=== PATIENT | male | born 1960 | race Caucasian/White ===

== ENCOUNTER 2019-08-06 00:27 | Emergency (ER) | payer OTHER, SELFPAY ==
[2019-08-06 01:34] LABS: Albumin 3.2 g/dL (3.4-5.0); Bilirubin Direct 0.2 mg/dL (0-0.2); Bilirubin Total 0.3 mg/dL (0.2-1.0); Magnesium 1.6 mg/dL (1.8-2.4); Potassium 3.9 mmol/L (3.5-5.1); Protein, Total 7.6 g/dL (6.4-8.2); Troponin (Emerg Dept Use Only) 0.03 ng/mL (0.0-0.045)
[2019-08-06 01:39] LABS: Barbiturates NEGATIVE (NEGATIVE); Benzodiazepines NEGATIVE (NEGATIVE); Cocaine NEGATIVE (NEGATIVE); METHAMPHETAM NEGATIVE (NEGATIVE); Methadone NEGATIVE (NEGATIVE); Opiates NEGATIVE (NEGATIVE); Phencyclidine NEGATIVE (NEGATIVE); THC Cannibis NEGATIVE (NEGATIVE)
[2019-08-06] MEDS ORDERED: Magnesium Sulfate 2gm IVPB 2 G/50 ML BAG IV ONE (01:56)
[2019-08-06] MEDS ORDERED: NA CHLORIDE 0.9% 500 ML ONE (01:56)
[2019-08-06 02:02] LABS: Absolute Lymphocytes (CBC) 1.4 K/uL (0.7-4.9); Basophils % 1.3 % (0-1.3); Hematocrit 31.9 % (39.6-49.0); MPV 9.4 fL (7.6-11.3); RBC Red Blood Cell Count 3.79 M/uL (4.33-5.43)
[2019-08-06 02:03] LABS: Protime INR 1.15
[2019-08-06 03:35] LABS: Anisocytosis 2+; Blood Morphology Comment NOTED (NOT SEEN); Platelet Estimate ADEQ; Polychromasia 1+; Urine White Blood Cell Casts OK
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
--- NOTE | 2019-08-06 03:49 | EDPHYS ---
Physician Documentation [facility] Name: Satnam Khan Age: 58 yrs Sex: Male : 1960 Arrival Date: 08/06/2019 Time: 00:46 Bed 3 Private MD: ED Physician Nolan Kaiser HPI: 08/05 02:53 This 58 yrs old Male presents to ER via EMS with complaints of Abdominal Pain.jr8 02:53 The patient presents with abdominal pain in the upper abdomen. Onset: The jr8 symptoms/episode began/occurred gradually, 2 week(s) ago, and became worse and became persistent. The symptoms do not radiate. Associated signs and symptoms: none. The symptoms are described as stabbing. Modifying factors: The symptoms are alleviated by nothing, the symptoms are aggravated by nothing. Severity of pain: At its worst the pain was moderate in the emergency department the pain is unchanged. It is unknown whether or not the patient has had similar symptoms in the past. It is unknown whether or not the patient has recently seen a physician. Patient came to ED via EMS tonight. EMS stated that patient had several alcoholic beverages and was slurring speech. Stated that he was having abdominal pain. Denies any other symptoms at this time. Historical: - Allergies: 00:56 No Known Allergies; lp1 - Home Meds: 00:56 Unable to obtain [Active]; lp1 - PMHx: 00:56 CHF; Myocardial infarction; Hypertension; lp1 - PSHx: 00:56 Heart stents; lp1 - Immunization history:: Adult Immunizations unknown. - Social history:: Smoking status: unknown. ROS: 02:54 Eyes: Negative for injury, pain, redness, and discharge, ENT: Negative for injury, jr8 pain, and discharge, Neck: Negative for injury, pain, and swelling, Cardiovascular: Negative for chest pain, palpitations, and edema, Respiratory: Negative for shortness of breath, cough, wheezing, and pleuritic chest pain, Back: Negative for injury and pain, MS/Extremity: Negative for injury and deformity, Skin: Negative for injury, rash, and discoloration, Neuro: Negative for headache, weakness, numbness, tingling, and seizure. 02:54 Abdomen/GI: Positive for abdominal pain, Negative for nausea, vomiting, and diarrhea, constipation, abdominal cramps, abdominal distension. Exam: 02:54 Eyes: Pupils equal round and reactive to light, extra-ocular motions intact. Lids and jr8 lashes normal. Conjunctiva and sclera are non-icteric and not injected. Cornea within normal limits. Periorbital areas with no swelling, redness, or edema. ENT: Nares patent. No nasal discharge, no septal abnormalities noted. Tympanic membranes are normal and external auditory canals are clear. Oropharynx with no redness, swelling, or masses, exudates, or evidence of obstruction, uvula midline. Mucous membranes moist. Neck: Trachea midline, no thyromegaly or masses palpated, and no cervical lymphadenopathy. Supple, full range of motion without nuchal rigidity, or vertebral point tenderness. No Meningismus. Respiratory: Lungs have equal breath sounds bilaterally, clear to auscultation and percussion. No rales, rhonchi or wheezes noted. Patient tachypneic 02:54 Skin: Warm, dry with normal turgor. Normal color with no rashes, no lesions, and no evidence of cellulitis. MS/ Extremity: Pulses equal, no cyanosis. Neurovascular intact. Full, normal range of motion. 02:54 Constitutional: The patient appears alert, awake, agitated. 02:54 Cardiovascular: Rate: tachycardic, Pulses: Pulses are 2+ in right radial artery and left radial artery. Heart sounds: normal, normal S1and S2, no S3 or S4, no murmur, no rub, no gallop, Edema: is not appreciated, JVD: is not appreciated, ICD noted left anterior chest wall . 02:54 Abdomen/GI: Inspection: obese scar(s), are noted in the mid abdominal, ileostomy site noted right side of abdomen, Bowel sounds: active, all quadrants, Palpation: soft, in all quadrants, moderate abdominal tenderness, in the epigastric area, mass, is not appreciated, rebound tenderness, is not appreciated, voluntary guarding, is not appreciated, involuntary guarding, is not appreciated, no appreciated organomegaly. 02:54 Neuro: Orientation: to person, place \T\ time. Mentation: able to follow commands, slow to respond, Memory: immediate memory is intact, remote memory is intact. recent memory is intact, Cranial nerves: CN I not tested, CN II- XII are normal as tested, extraocular movements are intact, Facial palsy and sensory deficits are absent. Speech is slurred, Tongue strength is normal, Cerebellar function: normal finger to nose testing, Motor: moves all fours, Sensation: no obvious gross deficits, seizure activity, is not displayed by the patient, Abnormal movements: there are no abnormal movements. Vital Signs: 00:45 BP 140 / 111; Pulse 117; Resp 20; Temp 98(TE); Pulse Ox 100% on R/A; lp1 02:05 BP 129 / 83; Pulse 112; Resp 26; Pulse Ox 99% on R/A; rv 02:47 BP 129 / 83; Pulse 112; Resp 21; Pulse Ox 96% on R/A; rv 03:30 BP 121 / 89; Pulse 111; Resp 26; Pulse Ox 96% on R/A; rv 04:00 BP 127 / 79; Pulse 106; Resp 27; Pulse Ox 94% on R/A; rv 05:03 BP 132 / 85; Pulse 105; Resp 24; Pulse Ox 94% on R/A; rv 06:55 BP 134 / 92; Pulse 102; Resp 21; Temp 98.3; Pulse Ox 97% on R/A; rv MDM: 00:46 Patient medically screened. [facility] 03:42 Data reviewed: vital signs, nurses notes, lab test result(s), EKG, radiologic studies, jr8 plain films. Data interpreted: Pulse oximetry: on room air is 96 %. Interpretation: normal. Counseling: I had a detailed discussion with the patient and/or guardian regarding: the historical points, exam findings, and any diagnostic results supporting the discharge/admit diagnosis, lab results, radiology results, the need for outpatient follow up, a family practitioner, to return to the emergency department if symptoms worsen or persist or if there are any questions or concerns that arise at home. Special discussion: Based on the patient's Hx, exam, and Dx evaluation, there is no indication for emergent surgery or inpatient Tx. It is understood by the patient/guardian that if the Sx's persist or worsen they need to return immediately for re-evaluation. 03:46 ED course: No acute abdominal process identified. Patient inebriated. Will wait to [facility] sober up or has ride home before discharging . 08/05 00:47 Order name: Basic Metabolic Panel [facility] 08/05 00:47 Order name: CBC with Diff 08/05 00:47 Order name: LFT's; Complete Time: 01:42 08/05 00:47 Order name: Magnesium; Complete Time: :42 08/05 00:47 Order name: NT PRO-BNP; Complete Time: :42 08/05 00:47 Order name: PT-INR; Complete Time: 02:05 08/05 00:47 Order name: Troponin (emerg Dept Use Only); Complete Time: :42 08/05 00:47 Order name: XRAY Chest (1 view) 08/05 00:47 Order name: Lipase; Complete Time: :42 08/05 00:47 Order name: ETOH Level; Complete Time: 01:54 08/05 00:47 Order name: UDS; Complete Time: :42 08/05 00:47 Order name: Basic Metabolic Panel; Complete Time: 01:42 EDMS 08/05 00:47 Order name: CBC with Automated Diff; Complete Time: 03:38 EDMS 08/05 02:04 Order name: CBC Smear Scan; Complete Time: 03:38 EDMS 08/05 00:47 Order name: Cardiac monitoring; Complete Time: 01:04 08/05 00:47 Order name: EKG - Nurse/Tech; Complete Time: 01:04 08/05 00:47 Order name: IV Saline Lock; Complete Time: 01:04 08/05 00:47 Order name: Labs collected and sent; Complete Time: 01:04 08/05 00:47 Order name: O2 Per Protocol; Complete Time: 01:04 08/05 00:47 Order name: O2 Sat Monitoring; Complete Time: 01:05 08/05 01:54 Order name: CT Abd/Pelvis - IV Contrast Only Administered Medications: 02:04 Drug: Magnesium Sulfate 2 grams Route: IVPB; Infused Over: 2 hrs; Site: left rv antecubital; 03:33 Follow up: IV Status: Completed infusion; IV Intake: 50ml rv Disposition: 08/06 01:15 Co-signature as Attending Physician, Nolan Kaiser MD. [email or web address] Disposition: 08/06/19 03:48 Discharged to Home. Impression: Upper abdominal pain, unspecified, Alcohol abuse. - Condition is Stable. - Discharge Instructions: Abdominal Pain, Adult, Alcohol Intoxication. - Medication Reconciliation Form, Thank You Letter, Antibiotic Education, Prescription Opioid Use form. - Follow up: Private Physician; When: 2 - 3 days; Reason: Recheck today's complaints, Continuance of care, Re-evaluation by your physician. - Problem is new. - Symptoms have improved. Signatures: Dispatcher [employer] EDEduarda Jiménez RN RN sv Nelda Feldman RN RN lp1 Ascencion Mondragon PA PA jr8 Gerber Todd RN RN rv Nolan Kaiser MD MD [email or web address] Corrections: (The following items were deleted from the chart) 08/05 07:30 03:48 08/06/2019 03:48 Discharged to Home. Impression: Upper abdominal pain, sv unspecified; Alcohol abuse. Condition is Stable. Forms are Medication Reconciliation Form, Thank You Letter, Antibiotic Education, Prescription Opioid Use. Follow up: Private Physician; When: 2 - 3 days; Reason: Recheck today's complaints, Continuance of care, Re-evaluation by your physician. Problem is new. Symptoms have improved. jr8
--- NOTE | 2019-08-06 08:01 | RAD REPORT ---
EXAM DESCRIPTION: [place] Single View08/06/2019 1:11 am CLINICAL HISTORY: Chest pain COMPARISON: 2017 FINDINGS: The lungs appear clear of acute infiltrate. The heart is mildly enlarged. Pacemaker leads are in place. IMPRESSION: No acute abnormalities displayed
[2019-08-06 08:12] VITALS: BP 134/92; TEMP 98.3; O2SAT 97
--- NOTE | 2019-08-06 10:38 | RAD REPORT ---
EXAM DESCRIPTION: CT - Abdomen Pelvis W Contrast - 08/06/2019 6:12 am COMPARISON: None CLINICAL HISTORY: Abdominal pain TECHNIQUE: Multiple helical axial images were obtained through the abdomen and pelvis using intraven ous contrast. Coronal and sagittal reformatted images were obtained. All CT scans at this facility use dose modulation, iterative reconstruction, and/or weight-based dosi ng when appropriate to reduce radiation dose to as low as reasonably achievable. FINDINGS: Lung bases: Cardiac pacing lead noted. Liver: There is low attenuation suggestive of fatty changes. Gallbladder/biliary: Cholecystectomy changes are present. No significant biliary ductal dilatation. Pancreas: Unremarkable. No evidence of ductal enlargement. Spleen: Appears unremarkable. No splenomegaly. Adrenals: Unremarkable. Kidneys and ureters: No evidence of hydronephrosis. Normal enhancement. There is a 2 cm rounded hyp odense cyst in the midpole of the right kidney. Subcentimeter hypodensity in the right kidney present too small to characterize but likely representing a cyst. Bladder: Unremarkable. Pelvic organs: Unremarkable. Bowel: Right lower quadrant ileostomy is demonstrated. There is a moderate size parastomal hernia con taining nondilated small bowel and fat. No evidence of bowel obstruction. No bowel wall thickening. Vasculature: Mild aortoiliac atherosclerosis is present. Peritoneum: No free air. No significant free fluid. Lymph nodes: Unremarkable. Soft tissues: Unremarkable. Bones: A few old rib fractures are present bilaterally. There are changes of posterior fusion at L4-L 5 with mild anterior subluxation of L4 relative to L5. Multiple chronic appearing compression fractur es of the lumbar spine demonstrated. Lumbar spine degenerative changes noted. IMPRESSION: 1. No evidence for an acute process within the abdomen or pelvis. 2. Right lower quadrant ileostomy with moderate-sized parastomal hernia. Electronically signed by: Eulalio Schwarz MD 08/06/2019 3:20 AM CDT Due to temporary technical issues with the PACS/Fluency reporting system, reports are being signed by the in house radiologist without review as a courtesy to ensure prompt reporting. The interpreting r adiologist is fully responsible for the content of the report.
--- NOTE | 2019-08-07 07:19 | EKG ---
Test Date: 2019-08-06 Test Time: 00:41:34 Medical Supervisor: JUVE MEASUREMENT RESULTS: Intervals: Rate: 117 CT: 156 QRSD: 120 QT: 340 QTc: 474 [place]: P: 70 CT: 156 QRS: -29 T: 67 INTERPRETIVE STATEMENTS: Sinus tachycardia Nonspecific intraventricular conduction delay Nonspecific T wave abnormality Abnormal ECG No previous ECG available for comparison Electronically Signed On 08-07-19 07:16:03 CDT by Nanod Lozano
== END 2019-08-06 07:30 | disposition home or self-care (01) ==
LOC: ER 00:27
DX: F10.10 Alcohol abuse, uncomplicated (principal); I10 Essential (primary) hypertension; I50.9 Heart failure, unspecified; Z95.818 Presence of other cardiac implants and grafts
CPT/HCPCS: 36415; 71045; 74177; 80048; 80076; 80307; 80320; 83690; 83735; 83880; 84484; 85025; 85610; 93005; 96365; 99285; J3475; J7040; Q9967

== ENCOUNTER 2019-08-13 09:31 | Inpatient (IN) | payer OTHER ==
[2019-08-13] MEDS ORDERED: ASPIRIN 81 MG CHEWABLE TABLET ONE (10:42)
[2019-08-13 10:48] LABS: Absolute Lymphocytes (CBC) 1.1 K/uL (0.7-4.9); Basophils % 0.9 % (0-1.3); Hematocrit 32.1 % (39.6-49.0); Lymphocytes % 20.1 % (15.3-44.8); MPV 9.5 fL (7.6-11.3); RBC Red Blood Cell Count 3.93 M/uL (4.33-5.43)
[2019-08-13 10:53] LABS: Protime INR 1.1
[2019-08-13 10:54] LABS: Arterial Blood Carboxyhemoglob 1.9 % (0-1.5); Blood Gas Oxyhemoglobin 93.2 % (94-97); Blood O2 Saturation 95.7 % (92-98.5)
--- OUTSIDE RECORDS SUMMARY | 2019-08-13 11:20 | XMS REPORT | Clinical Summary ---
:[address] [facility] Address [address] [place] [id number] Care Team Providers Name Role Phone Unavailable Primary Care Provider Unavailable Allergies No Known Allergies Medications Medication Sig Dispensed Refills Start Date End Date Status HYDROcodone-acetaminoph Take 1 tablet by 19 tablet 0 6 Active en (NORCO) 5-325 mg mouth every 6 tabletIndications: hours as needed Midline low back pain for Pain. without sciatica, unspecified chronicity Active Problems Not on file Social History Tobacco Use Types Packs/Day Years Used Date Never Assessed Sex Assigned at Date Recorded Not on file Job Start Date Occupation Industry Not on file Not on file Not on file Travel History Travel Start Travel End No recent travel history available. Last Filed Vital Signs Not on file Plan of Treatment Health Maintenance Due Date Last Done Comments Colorectal Cancer Scrn Annual (FIT/FOBT) Age 50 to 75 11/01/2011 IMM Influenza Seasonal Nov to April (>/= 19 yrs) 11/07/2019 Results Not on fileafter 08/12/2018 Insurance Payer Benefit Plan / Subscriber ID Effective Dates Phone Addre ss Type Group [employer] SELF-PAY xxxxxxxxx 2015-Pres [phone] [id number] SELF-PAY UNSCREENED [address] [place] [address] (Work) [id number]
--- OUTSIDE RECORDS SUMMARY | 2019-08-13 11:20 | XMS REPORT | Clinical Summary ---
:1960 Author Organization [facility] Address [address] [place] [address] Care Team Providers Name Role Phone Asked, No Pcp Primary Care Provider Unavailable Allergies No Known Allergies Medications No known medications Active Problems Not on file Social History Tobacco Use Types Packs/Day Years Used Date Current Some Day Smoker Alcohol Use Drinks/Week oz/Week Comments No Sex Assigned at Date Recorded Not on file Job Start Date Occupation Industry Not on file Not on file Not on file Travel History Travel Start Travel End No recent travel history available. 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
[2019-08-13 11:25] LABS: ALT/SGPT 42 U/L (12-78); AST/SGOT 83 U/L (15-37); Albumin 3.2 g/dL (3.4-5.0); Alkaline Phosphatase 110 U/L (45-117); BUN Blood Urea Nitrogen 6 mg/dL (7-18); Bicarbonate 14 mmol/L (21-32); Bilirubin Direct 0.2 mg/dL (0-0.2); Bilirubin Total 0.5 mg/dL (0.2-1.0); Ferritin 53.8 ng/mL (26-388); Glucose Level 111 mg/dL (74-106); Lipase 366 U/L (73-393); Potassium 3.9 mmol/L (3.5-5.1); Protein, Total 7.1 g/dL (6.4-8.2); Troponin (Emerg Dept Use Only) 0.08 ng/mL (0.0-0.045)
[2019-08-13 11:26] LABS: C-Reactive Protein < 2.90 mg/L (<3.00)
--- OUTSIDE RECORDS SUMMARY | 2019-08-13 11:26 | XMS REPORT | Continuity of Care Document ---
:1960 Author Organization [employer] Care Team Providers Name Role Phone Kwestr Unavailable Un available Problems Problem Status Onset Classification Date Comments Sourc e Date Reported ETOH Active 07/15/19 17 [facility] ACUTE ALCOHOL Active 07/15/19 INTOXICATION, 17 [place] DEHYDRATION, Alcohol abuse with 07/06/19 07/09/2016 intoxication, 17 [place] unspecified Laceration without 07/06/19 07/09/2016 foreign body of 17 [place], initial encounter ACUTE ALCOHOL Active 07/06/[address] LAC Active 07/06/19 17 [facility] Discharge 10/15/19 10/18/2015 [facility] Diagnosis: Back 16 [facility] ben strain Center Discharge 10/15/19 10/18/2015 [facility] Diagnosis: Chronic 16 [facility]ical low back pain Center BACK PAIN Active 10/15/19 [place] [address] [facility] URINARY RETENTION Active 10/03/19 [facility] CONCERN FOR CAUDA 16 [facility] EQUI Center Backache (finding) Active Problem 07/18/2016 [facility] Coronary Active Problem 07/18/2016 [facility] arteriosclerosis Med ical (disorder) Center,[facility] Hypertensive Active Problem 07/18/2016 [place] as disorder, systemic M edical arterial (disorder) Center,[facility] Irritable colon Active Problem 07/18/2016 [facility] (disorder) [facility] Posttraumatic Active Problem 07/18/[place] stress disorder [facility] (disorder) Center,[facility] Ulcerative colitis Active Problem 07/18/2016 [facility] (disorder) [facility] RETENTION OF URINE, Active [facility]PECIFIED [facility] Center Medications Medication Details Route Status Patient Ordering Order Source Instructions Provider Date Rocepsandhya Notes: (Same Inactive 07/16/ As: Rocephin). 2016 [facility] Use with 100 mL NS and infuse over 30 min MEDICATION WASTE Product Size: 1000 mg Product Wasted: ___ mg thiamine 100 mg 100 mg = 1 tab, Active oral tablet PO, Daily, X 10 2016 [place] day, # 10 tab, 0 Refill(s) Folic Acid 1 MG 1 mg = 1 tab, Active Oral Tablet PO, Daily, # 30 2016 [place] tab, 0 Refill(s) Multiple 1 tab, PO, Active Vitamins oral Daily, # 30 2016 [facility] est tablet tab, 0 Refill(s) multivitamin Notes: (Same Inactive as:Thera) 2016 [facility] WASTE: F/P - Black; E - Municipal Trash Bin Take with food. Thiamine Notes: (Same No Longer As: Vitamin B1) Active [facility] Lyrica Notes: (Same Inactive as: Lyrica) 2016 [facility] Prilosec 40 mg, Route: No Longer PO, Drug form: Active 2016 [facility] DRC, Daily, Dosing Weight 79.545, kg, Start date: 07/15/16 9:00:00 CDT, Duration: 30 day, Stop date: 08/13/16 9:00:00 CDT Lopressor Notes: (Same Inactive as: Lopressor) 2016 [facility] Protonix Notes: Tablet Inactive should not be 2016 [facility] chewed or crushed. (Same as: Protonix) tamsulosin Notes: (Same Inactive As: Flomax) 2016 [facility] "Do Not Crush" Sodium Chloride 1,000 mL, Rate: No Longer 0.154 MEQ/ML 125 ml/hr, Active 2016 [facility] Injectable Infuse over: Solution 8.1 hr, Route: IV, Dosing Weight 79.545 kg, Total Volume: 1,011.2, Start date: 07/14/16 22:11:00 CDT, Duration: 3 day, Stop date: 07/17/16 22:10:00 CDT Lorazepam Notes: (Same No Longer as: Ativan) Active 2016 [facility] Ondansetron Notes: (Same No Longer as: Zofran) Active 2016 [facility] MEDICATION WASTE Product Size: 4 mg Product Wasted: ___ mg Ceftriaxone Notes: (Same Inactive As: Rocephin). 2017 [facility] Use with 100 mL NS and infuse over 30 min MEDICATION WASTE Product Size: 1000 mg Product Wasted: ___ mg Ativan Notes: (Same Inactive as: Ativan) 2016 [facility] Sodium Chloride 500 mL, 500 Inactive 0.154 MEQ/ML ml/hr, Infuse 2016 [facility] Injectable Over: 1 hr, Solution Route: IV, 500, Drug form: INJ, ONCE, Priority: STAT, Dosing Weight 79.545 kg, Start date: 07/14/16 18:11:00 CDT, Duration: 1 doses or times, Stop date: 07/14/16 18:11:00 CDT Saline Flush Notes: (Same No Longer 0.9% as: BD Active 2016 [facility] Posiflush) Docusate Notes: (Same Inactive as: Colace) (Do 2016 [facility] Not Crush) Acetaminophen 1 tab, PO, Q6H, Active 325 MG / PRN Pain Score 2016 [facility] Hydrocodone 4-6, 0 Bitartrate 5 MG Refill(s) Oral Tablet pregabalin 75 75 mg = 1 cap, Active MG Oral Capsule PO, TID, 0 2016 [facility] [Lyrica] Refill(s) metoprolol 50 mg = 1 tab, Active tartrate 50 mg PO, Daily, 0 2016 [place] oral tablet Refill(s) loperamide 2 mg 2 mg = 1 tab, Active oral tablet PO, QID, PRN 2016 [facility] Loose Stools, # 60 tab, 0 Refill(s) Omeprazole 40 40 mg = 1 cap, Active MG Enteric PO, Daily, 0 2016 [facility] Coated Capsule Refill(s) [Prilosec] tamsulosin 0.4 0.4 mg = 1 cap, Active H mg oral capsule PO, BID, 0 2016 [facility] Refill(s) Ativan Notes: (Same No Longer as: Ativan) Active 2016 [facility] Sodium Chloride 1,000 mL, Rate: No Longer 0.154 MEQ/ML 100 ml/hr, Active 2016 [facility] t Injectable Infuse over: Solution 10.1 hr, Route: IV, Dosing Weight 127.273 kg, Total Volume: 1,011.2, Start date: 07/05/16 20:19:00 CDT, Duration: 3 day, Stop date: 07/08/16 20:18:00 CDT Ondansetron Notes: (Same No Longer as: Zofran) Active 2016 [facility] MEDICATION WASTE Product Size: 4 mg Product Wasted: ___ mg Acetaminophen Notes: Do not No Longer exceed 4 Active 2016 [facility] gm/day. (Same as: Tylenol) Morphine Notes: (Same No Longer as:MORPhine Active 2016 [facility] Sulfate) Sodium Chloride 250 mL, Route: No Longer 0.9% IV IVPB, Start Active 2016 [facility] date: 07/05/16 16:50:00 CDT, Duration: 30 day, Stop date: 08/04/16 16:49:00 CDT, PRN Line Flush Sodium Chloride 1,000 mL, Rate: Inactive 0.154 MEQ/ML 1,000 ml/hr, 2016 [facility] Injectable Infuse over: 1 Solution hr, Route: IV, Dosing Weight 127.273 kg, Total Volume: 1,000, Start date: 07/05/16 16:41:00 CDT, Duration: 1 doses or times, Stop date: 07/05/16 17:40:00 CDT LET topical Notes: For Inactive topical use 2016 [facility] only - Lidocain-epinep hrine-tetracain e 1.5 ml top GEL. (Same as: Adrenalin-Xyloc isabelle-Tetracaine ) Sodium Chloride 1,000 mL, Rate: Inactive 0.154 MEQ/ML 1,000 ml/hr, 2016 [facility] est Injectable Infuse over: 1 Solution hr, Route: IV, Dosing Weight 127.273 kg, Total Volume: 1,000, Start date: 07/05/16 12:17:00 CDT, Duration: 1 doses or times, Stop date: 07/05/16 13:16:00 CDT Saline Flush Notes: (Same No Longer 0.9% as: BD Active 2016 [facility] Posiflush) tramadol 50 mg = 1 tab, Active [place] hydrochloride PO, Q8H, PRN 2016 Medic al 50 MG Oral Pain, X 5 day, Center Tablet # 15 tab, 0 Refill(s) Tramadol Notes: Not to Inactive [place] exceed 2016 Medical 400mg/day. Center (Same As: Ultram) Tylenol Notes: Do not Inactive [place] exceed 4 2016 Medical gm/day. (Same Center as: Tylenol) Diazepam 0 Refill(s) Active [place] 2016 [facility] Center Lisinopril PO, Daily, 0 Active [facility] Refill(s) 2016 [facility] Imodium A-D 2 mg, 0 Active [place] Refill(s) 2016 [facility] Omeprazole PO, Daily, 0 Active [facility] Refill(s) 2016 [facility] Hydromorphone 4 mg = 1 tab, Active [place] Hydrochloride 4 PO, Q4H, PRN 2016 Med ical MG Oral Tablet Pain, X 7 day, Ce nter [Dilaudid] # 42 tab, 0 Refill(s), given to patient oxyCODONE 20 mg 20 mg = 1 tab, Active H [place] oral tablet, PO, Q12H, # 14 2016 Medi ben extended tab, 0 Center release Refill(s), given to patient methocarbamol 1,000 mg = 2 [place] 500 mg oral tab, PO, Q8H, X 2016 Medi ben tablet 5 day, # 30 Center tab, 0 Refill(s) tamsulosin 0.4 0.4 mg = 1 cap, Active M H [place] mg oral capsule PO, After 2016 Medica l Dinner, # 14 Center cap, 0 Refill(s) melatonin 3 mg 3 mg = 1 tab, Active [place] oral tablet PO, Bedtime, 2016 Medical PRN Insomnia, X Center 5 day, # 5 tab, 0 Refill(s) gabapentin 300 600 mg = 2 cap, Active M H [place] MG Oral Capsule PO, Q8Hnow, # 2016 Me dical 30 cap, 0 Center Refill(s) dicyclomine 20 20 mg = 1 tab, Active [place] mg oral tablet PO, QID, # 28 2016 Med ical tab, 0 Center Refill(s) acetaminophen 1,000 mg = 2 [place] mg oral tab, PO, 2016 Medical tablet Q6Hnow, X 5 Center day, # 40 tab, 0 Refill(s) Valium Notes: (Same Inactive [facility] as: Valium) 2016 [facility] [place] Valium Notes: (Same No Longer [facility] as: Valium) Active 2016 [facility] Dilaudid Notes: (Same No Longer [facility] as: Dilaudid) Active 2015 [facility] Dilaudid Notes: (Same No Longer [facility] as: Dilaudid) Active 2015 [facility] Calcium 500 mg, 1 tab, Inactive [facility] Gluconate 500 Route: PO, Drug 2016 Me dical MG Oral Tablet form: TAB, Center ONCE, Dosing Weight 104.545, kg, Start date: 10/07/15 12:57:00 CDT, Stop date: 10/07/15 12:57:00 CDT Bentyl Notes: (Same No Longer [facility] as: Bentyl) Active 2015 [facility] D5W 1/2NS 1000 1,000 mL, Rate: Inactive [facility] mL 125 ml/hr, 2016 Medical Infuse over: 8 Center hr, Route: IV, Dosing Weight 104.545 kg, Total Volume: 1,000, Start date: 10/07/15 11:58:00 CDT, Duration: 30 day, Stop date: 11/06/15 11:57:00 CDT Bentyl Notes: (Same No Longer [facility] as: Bentyl) Active 2015 Medical Center Flomax Notes: (Same No Longer [facility] As: Flomax) Active 2015 Medical "Do Not Crush" Center Morphine Notes: (Same No Longer [facility] as:MORPhine Active 2015 Medical Sulfate) Center Morphine Notes: (Same Inactive [facility] as:MORPhine 2015 Medical Sulfate) Center Oxycontin Notes: Do not No Longer [place] as crush or chew. Active 2015 Medical (Same as: Center OxyContin) Morphine Notes: (Same Inactive [facility] as:MORPhine 2016 Medical Sulfate) [place] heparin sodium, Notes: porcine No Longer [place] porcine 2500 heparin Active 2016 Medical UNT/ML [place] Injectable Solution Acetaminophen Notes: Do not Inactive [place] 325 MG / exceed 4gm/day 2016 Medical Oxycodone of [place] Hydrochloride acetaminophen. 10 MG Oral (Same as: Tablet Percocet-10/325 [Percocet ) 10/325] oxyCODONE 20 mg 20 mg = 1 tab, No Longer [facility] oral tablet, PO, Q12H, 0 Active 2015 Medical extended Refill(s) Center release Hydromorphone 8 mg = 1 tab, No Longer [facility] Hydrochloride 8 PO, Q6H, PRN Active 2015 Med ical MG Oral Tablet Pain, 0 [place] [Dilaudid] Refill(s) Naproxen Notes: (Same No Longer [facility] as: Naprosyn) Active 2015 Medical Take with food. [place] Acetaminophen Notes: [place] Longer [place] acetaminophen Active 2016 Medical 4000 mg/day (4 Center gm/day). (Same as: Tylenol Extra Strength) Tramadol Notes: Not to [place] Longer [place] exceed Active 2015 [facility] 400mg/day. Center (Same As: Ultram) gabapentin Notes: (Same No Longer [facility] as as: Neurontin) Active 2016 [facility] Lidocaine Notes: Apply No Longer [place] Hydrochloride only once for Active 2015 Medi ben 0.05 MG/MG up to 12 hours Center Transdermal in a 24-hour Patch period (12 [Lidoderm] hours on and 12 hours off). (Same as: Lidoderm) "Remove old patch before application of new patch" D5W 1/2NS 1,000 1,000 mL, Rate: No Longer [facility] mL 125 ml/hr, Active 2015 [facility] Infuse over: 8 Center hr, Route: IV, Dosing Weight 104.545 kg, Total Volume: 1,000, Start date: 10/04/15 5:16:00 CDT, Duration: 30 day, Stop date: 11/03/15 5:15:00 CDT Methocarbamol Notes: (Same No Longer [facility] [place] as:Robaxin) Active 2016 [facility] Oxycodone Notes: (Same No Longer [place] Hydrochloride 5 as: Roxicodone) Active 2016 Medical MG Oral Tablet Center Promethazine Notes: (Same No Longer [place] as: Phenergan) Active 2016 [facility] Melatonin Notes: (Same [place] Long[place] as: Melatonin) Active 2016 [facility] Hydromorphone Notes: Same as: Inactive H [place] Dilaudid 2016 [facility] Center Ativan Notes: (Same No Longer [facility] as: Ativan) Active 2016 [facility] Center Morphine Notes: (Same Inactive [facility] as:MORPhine 2015 Medical Sulfate) Center Ondansetron Notes: (Same Inactive [place] as as: Zofran) 2015 Medical MEDICATION Center WASTE Product Size: 4 mg Product Wasted: ___ mg Acetaminophen 1 tab, Route: Inactive [facility] 325 MG / PO, Drug Form: 2016 Medical Hydrocodone TAB, Dosing Center Bitartrate 5 MG Weight 104.545, Oral Tablet kg, ONCE, STAT, Start date: 10/03/15 20:06:00 CDT, Stop date: 10/03/15 20:06:00 CDT Sodium Chloride 1,000 mL, 2,000 Inactive [facility] 0.154 MEQ/ML ml/hr, Infuse 2016 Medic al Injectable Over: 30 Center Solution minutes, Route: IV, 1,000, Drug form: INJ, ONCE, Priority: STAT, Dosing Weight 104.545 kg, Start date: 10/03/15 18:29:00 CDT, Duration: 1 doses or times, Stop date: 10/03/15 18:29:00 CDT Ondansetron Notes: (Same Inactive [place] as as: Zofran) 2015 Medical MEDICATION Center WASTE Product Size: 4 mg Product Wasted: 0 mg Morphine Notes: (Same Inactive [facility] as:MORPhine 2015 Medical Sulfate) Center Allergies, Adverse Reactions, Alerts No Known Medication Allergies Immunizations No Data Provided for This Section Results Order Name Results Value Reference Date Interpretation Comments Marlene rce Range CHEM PANEL Magnesium 1.7 1.8 - 2.4 06/09 [place] CHEM PANEL eGFR 101 07/15 Result Comment: [facility] eGFR is calculated using the CKD-EPI formula. In most young, healthy individuals the eGFR will be >90 mL/min/1.73m2 . The eGFR declines with age. An eGFR of 60-89 may be normal in some populations, particularly the elderly, for whom the CKD-EPI formula has not been extensively validated. Use of the eGFR is not recommended in the following populations:< br/>
Simin viduals with unstable creatinine concentration s, including patients and those with serious co-morbid conditions.<b r/>
Patie nts with extremes in muscle mass or diet.

The data above are obtained from the National Kidney Disease Education Program (NKDEP) which additionally recommends that when the eGFR is used in patients with extremes of body mass index for purposes of drug dosing, the eGFR should be multiplied by the estimated BMI. CHEM PANEL Bili Total 0.5 0.2 - 1.3 07/15 [facility] CHEM PANEL Alk Phos 170 39 - 136 07/15 [facility] CHEM PANEL AST 93 0 - 37 07/15 [facility] CHEM PANEL Total 6.3 6.4 - 8.4 07/15 Protein [facility] CHEM PANEL BUN 16 7 - 22 07/15 [facility] CHEM PANEL Glucose Lvl 74 70 - 99 07/15 [facility] CHEM PANEL Chloride Lvl 104 95 - 109 07/15 [facility] CHEM PANEL Creatinine 0.80 0.50 - 07/15 Lvl 1.40 [place] CHEM PANEL Sodium Lvl 141 135 - 145 07/15 [place] CHEM PANEL Albumin Lvl 2.6 3.5 - 5.0 07/15 [place] CHEM PANEL ALT 97 0 - 65 07/15 [facility] CHEM PANEL CO2 22 24 - 32 07/15 [facility] CHEM PANEL Calcium Lvl 7.4 8.5 - 10.5 07/15 [place] CHEM PANEL Potassium 3.4 3.5 - 5.1 07/15 Lvl [place] CHEM PANEL B/C Ratio 20 6 - 25 07/15 [place] CHEM PANEL AGAP 18.4 10.0 - 06 MH 20.0 /2016 [facility] CHEM PANEL Globulin 3.7 2.7 - 4.2 07/15 [facility] CHEM PANEL A/G Ratio 0.7 0.7 - 1.6 07/15 [facility] CHEM PANEL Phosphorus 2.5 2.5 - 4.5 07/15 [facility] HEMATOLOGY Platelet 132 133 - 450 07/15 [facility] HEMATOLOGY MPV 9.4 7.4 - 10.4 07/15 [facility] HEMATOLOGY WBC 5.9 3.7 - 10.4 07/15 [facility] HEMATOLOGY RBC 4.01 4.70 - 07/15 MH 6.10 [facility] HEMATOLOGY RDW 18.0 11.5 - 07/15 MH 14.5 /2016 [facility] HEMATOLOGY MCHC 33.7 32.0 - 07/15 MH 36.0 /2016 [facility] HEMATOLOGY MCH 28.8 27.0 - 07/15 MH 31.0 [facility] HEMATOLOGY MCV 85.6 80.0 - 07/15 MH 94.0 /2016 [facility] HEMATOLOGY Hct 34.3 42.0 - 07/15 MH 54.0 [facility] HEMATOLOGY Hgb 11.6 14.0 - 07/15 MH 18.0 [facility] HEMATOLOGY Monocytes # 0.5 0.0 - 0.8 07/15 [facility] HEMATOLOGY Basophils 0.7 0.0 - 1.0 07/15 [facility] HEMATOLOGY Segs-Bands # 3.5 1.5 - 8.1 07/15 [facility] HEMATOLOGY Lymphocytes 1.8 1.0 - 5.5 07/15 MH # /2016 [facility] HEMATOLOGY Monocytes 9.3 2.0 - 12.0 07/15 [facility] HEMATOLOGY Eosinophils 0.5 0.0 - 4.0 07/15 [facility] HEMATOLOGY Segs 59.1 45.0 - 07/15 MH 75.0 [facility] HEMATOLOGY Lymphocytes 30.4 20.0 - 07/15 MH 40.0 [facility] DRUG SCREEN U Opiate Scr Negative Negative 07/15 MH *NA* /2016 [facility] (07/14/16 7:26 PM) DRUG SCREEN U Cannab Scr Negative Negative 07/15 MH *NA* /2016 [facility] (07/14/16 7:26 PM) DRUG SCREEN U Phencyc Negative Negative 07/15 MH Scr *NA* /2016 [facility] (07/14/16 7:26 PM) DRUG SCREEN UDS Note See Note 07/15 (07/14/16 7:26 PM) [facility] DRUG SCREEN U Amph Scr Negative Negative 07/15 *NA* [facility] (07/14/16 7:26 PM) DRUG SCREEN U Dianne Scr Negative Negative 07/15 *NA* [facility] (07/14/16 7:26 PM) DRUG SCREEN U Benzodia Negative Negative 07/15 Scr *NA* [facility] (07/14/16 7:26 PM) DRUG SCREEN U Cocaine Negative Negative 07/15 Scr *NA* [facility] (07/14/16 7:26 PM) URINE AND UA <=1.0 0.1 - 1.0 07/15 STOOL Urobilinogen mg/dL [facility] URINE AND UA Spec Grav 1.009 <=1.030 07/15 STOOL [facility] URINE AND UA pH 5.0 5.0 - 8.0 07/15 STOOL [facility] URINE AND UA Glucose Negative Negative 07/15 [facility] mg/dL mg/dL [facility] URINE AND UA Protein Negative Negative 07/15 [facility] mg/dL mg/dL [facility] URINE AND UA Turbidity Clear Clear 07/15 STOOL (07/14/16 7:26 PM) /2016 [facility] URINE AND UA Color Light Yellow Yellow 07/15 STOOL *NA* [facility] (07/14/16 7:26 PM) URINE AND UA Mucus Few /LPF None Seen 07/15 STOOL /LPF /2016 [facility] URINE AND UA Hyal Cast 1 0 - 2 07/15 STOOL [facility] URINE AND UA Bacteria Few /HPF None Seen 07/15 STOOL /HPF /2016 [facility] URINE AND UA RBC 4 0 - 2 07/15 STOOL [facility] URINE AND UA WBC 2 0 - 5 07/15 STOOL [facility] URINE AND UA Sq Epi Few /LPF Few /LPF 07/15 STOOL [facility] URINE AND UA Leuk Est Negative Negative 07/15 STOOL (07/14/16 7:26 PM) /2016 [facility] URINE AND UA Nitrite Positive Negative 07/15 STOOL *ABN* [facility] (07/14/16 7:26 PM) URINE AND UA Ketones 20 mg/dL Negative 07/15 STOOL mg/dL [facility] URINE AND UA Bili Negative Negative 07/15 STOOL *NA* /2016 [facility] (07/14/16 7:26 PM) URINE AND UA Blood Small Negative 07/15 STOOL *ABN* /2016 [facility] (07/14/16 7:26 PM) CARDIAC Troponin-I 0.02 0.00 - 07/14 ENZYMES 0.40 /2016 [facility] CARDIAC BNP 34 <=100 / ENZYMES pg/mL /2016 [facility] CARDIAC CK MB 6.4 0.5 - 3.6 07/14 ENZYMES /2016 [facility] CHEM PANEL Magnesium 2.0 1.8 - 2.4 / Lvl /2016 [facility] ELECTROLYTE AGAP 18.6 10.0 - 0608 S 20.0 /2016 [facility] ELECTROLYTE A/G Ratio 0.9 0.7 - 1.6 07/14 S /2016 [facility] ELECTROLYTE B/C Ratio 13 6 - 25 07/14 S [facility] ELECTROLYTE Globulin 3.7 2.7 - 4.2 07/14 S [facility] ELECTROLYTE Albumin Lvl 3.5 3.5 - 5.0 07/14 S [facility] ELECTROLYTE ALT 126 0 - 65 / MH S [facility] ELECTROLYTE AST 165 0 - 37 / S [facility] ELECTROLYTE Alk Phos 225 39 - 136 07/14 S [facility] ELECTROLYTE Bili Total 0.5 0.2 - 1.3 07/14 MH S [facility] ELECTROLYTE eGFR 79 07/14 MH S Comment: [facility] eGFR is calculated using the CKD-EPI formula. In most young, healthy individuals the eGFR will be >90 mL/min/1.73m2 . The eGFR declines with age. An eGFR of 60-89 may be normal in some populations, particularly the elderly, for whom the CKD-EPI formula has not been extensively validated. Use of the eGFR is not recommended in the following populations:< br/>
Simin viduals with unstable creatinine concentration s, including patients and those with serious co-morbid conditions.<b r/>
Patie nts with extremes in muscle mass or diet.

The data above are obtained from the National Kidney Disease Education Program (NKDEP) which additionally recommends that when the eGFR is used in patients with extremes of body mass index for purposes of drug dosing, the eGFR should be multiplied by the estimated BMI. ELECTROLYTE CO2 23 24 - 32 06/08 MH S /2017 [facility] ELECTROLYTE Chloride Lvl 104 95 - 109 06/08 MH S /2016 [facility] ELECTROLYTE Potassium 3.6 3.5 - 5.1 06/08 MH S Lvl /2017 [facility] ELECTROLYTE Total 7.2 6.4 - 8.4 06/08 MH S Protein /2016 [facility] ELECTROLYTE Calcium Lvl 7.9 8.5 - 10.5 06/08 MH S /2016 [facility] ELECTROLYTE Glucose Lvl 88 70 - 99 06/08 MH S /2017 [facility] ELECTROLYTE Creatinine 1.06 0.50 - 06/08 MH S Lvl 1.40 /2016 [facility] ELECTROLYTE BUN 14 7 - 22 06/08 MH S /2016 [facility] ELECTROLYTE Sodium Lvl 142 135 - 145 06/08 MH S /2016 [facility] HEMATOLOGY Basophils # 0.0 0.0 - 0.2 06/08 MH /2016 [facility] HEMATOLOGY Segs-Bands # 4.3 1.5 - 8.1 / MH /2016 [facility] HEMATOLOGY Eosinophils 0.0 0.0 - 0.5 06/08 MH # /2017 [facility] HEMATOLOGY Monocytes # 0.4 0.0 - 0.8 06/08 MH /2016 [facility] HEMATOLOGY Lymphocytes 2.5 1.0 - 5.5 06/08 MH # /2017 [facility] HEMATOLOGY Basophils 0.5 0.0 - 1.0 06/08 MH /2016 [facility] HEMATOLOGY Monocytes 5.9 2.0 - 12.0 /08 MH /2016 [facility] HEMATOLOGY Eosinophils 0.4 0.0 - 4.0 06/08 MH /2016 [facility] HEMATOLOGY Lymphocytes 34.6 20.0 - 06/08 MH 40.0 /2017 [facility] HEMATOLOGY Segs 58.6 45.0 - 06/08 MH 75.0 /2017 [facility] HEMATOLOGY PTT 23.0 22.9 - 06/08 MH 35.8 /2017 [facility] HEMATOLOGY INR 1.01 0.85 - 06/08 MH 1.17 /2016 [facility] HEMATOLOGY PT 13.5 12.0 - 06/08 MH 14.7 /2017 [facility] HEMATOLOGY MCV 86.9 80.0 - 06/08 MH 94.0 /2017 [facility] HEMATOLOGY MPV 9.1 7.4 - 10.4 06/08 MH /2016 [facility] HEMATOLOGY MCH 28.2 27.0 - 06/08 MH 31.0 /2016 [facility] HEMATOLOGY MCHC 32.5 32.0 - 06/08 MH 36.0 /2017 [facility] HEMATOLOGY RDW 18.3 11.5 - 06 MH 14.5 /2016 [facility] HEMATOLOGY Platelet 175 133 - 450 07/14 [facility] HEMATOLOGY WBC 7.3 3.7 - 10.4 07/14 /2016 [facility] HEMATOLOGY RBC 4.78 4.70 - 07/14 MH 6.10 /2016 [facility] HEMATOLOGY Hgb 13.5 14.0 - 07/14 MH 18.0 /2016 [facility] HEMATOLOGY Hct 41.6 42.0 - 07/14 MH 54.0 /2016 [facility] TOXICOLOGY Etoh (%) 0.466 07/14 Result Comment: [facility] Critical Result(s) called to OU,E at _07/14/2016 19:24 by_CL . Read back OK. TOXICOLOGY Ethanol Lvl 466 07/14 Result Comment: [facility] Critical Result(s) called to OU,E at _07/14/2016 19:24 by_CL . Read back OK. DRUG SCREEN U Amph Scr Negative Negative 07/05 *NA* /2016 [facility] (07/05/16 2:32 PM) DRUG SCREEN UDS Note See Note 07/05 (07/05/16 2:32 PM) /2016 [facility] est DRUG SCREEN U Phencyc Negative Negative 07/05 Scr *NA* /2016 [facility] (07/05/16 2:32 PM) DRUG SCREEN U Opiate Scr Negative Negative 07/05 *NA* /2016 [facility] (07/05/16 2:32 PM) DRUG SCREEN U Cannab Scr Negative Negative 07/05 *NA* /2016 [facility] (07/05/16 2:32 PM) DRUG SCREEN U Cocaine Negative Negative 07/05 Scr *NA* /2016 [facility] (07/05/16 2:32 PM) DRUG SCREEN U Dianne Scr Negative Negative 07/05 *NA* /2016 [facility] (07/05/16 2:32 PM) DRUG SCREEN U Benzodia Negative Negative 07/05 Scr *NA* /2016 [facility] (07/05/16 2:32 PM) URINE AND UA Sq Epi None Seen 07/05 STOOL [facility] URINE AND UA <=1.0 0.1 - 1.0 07/05 STOOL Urobilinogen mg/dL /2016 [facility] URINE AND UA RBC <1 0 - 2 07/05 STOOL /2016 [facility] URINE AND UA WBC 1 0 - 5 07/05 STOOL [facility] URINE AND UA Turbidity Clear Clear 07/05 STOOL (07/05/16 2:32 PM) [place] URINE AND UA Color Light Yellow Yellow 07/05 STOOL *NA* /2016 [facility] (07/05/16 2:32 PM) URINE AND UA Bili Negative Negative 07/05 STOOL *NA* [facility] (07/05/16 2:32 PM) URINE AND UA Glucose Negative Negative 07/05 STOOL mg/dL mg/dL [facility] URINE AND UA Ketones Negative Negative 07/05 STOOL mg/dL mg/dL [place] URINE AND UA Protein Negative Negative 07/05 STOOL mg/dL mg/dL [facility] URINE AND UA Leuk Est Negative Negative 07/05 STOOL (07/05/16 2:32 PM[facility] Blood Negative Negative 07/05 STOOL (07/05/16 2:32 PM) [place] URINE AND UA Nitrite Negative Negative 07/05 STOOL (07/05/16 2:32 PM) [facility] URINE AND UA Spec Grav 1.002 <=1.030 07/05 STOOL [facility] URINE AND UA pH 6.0 5.0 - 8.0 07/05 STOOL [facility] CARDIAC CK MB Index 1.5 0.0 - 2.5 07/05 MH ENZYMES [facility] CARDIAC Total CK 210 12 - 191 07/05 ENZYMES [facility] CARDIAC CK MB 3.1 0.5 - 3.6 07/05 ENZYMES [facility] CARDIAC Troponin-I <0.02 0.00 - 07/05 ENZYMES 0.40 2017 [facility] CHEM PANEL eGFR 74 07/05 Result Comment: The [facility] eGFR is calculated using the CKD-EPI formula. In most young, healthy individuals the eGFR will be >90 mL/min/1.73m2 . The eGFR declines with age. An eGFR of 60-89 may be normal in some populations, particularly the elderly, for whom the CKD-EPI formula has not been extensively validated. Use of the eGFR is not recommended in the following populations:< br/>
Simin viduals with unstable creatinine concentration s, including patients and those with serious co-morbid conditions.<b r/>
Patie nts with extremes in muscle mass or diet.

The data above are obtained from the National Kidney Disease Education Program (NKDEP) which additionally recommends that when the eGFR is used in patients with extremes of body mass index for purposes of drug dosing, the eGFR should be multiplied by the estimated BMI. CHEM PANEL AGAP 17.8 10.0 - 05/ MH 20.0 /2017 [facility] CHEM PANEL Globulin 4.1 2.7 - 4.2 05/30 MH [facility] CHEM PANEL B/C Ratio 10 6 - 25 05/30 MH [facility] CHEM PANEL A/G Ratio 0.9 0.7 - 1.6 05/ MH [facility] CHEM PANEL Potassium 3.8 3.5 - 5.1 05/30 MH Lvl /2017 [facility] CHEM PANEL Sodium Lvl 139 135 - 145 05/ [facility] CHEM PANEL ALT 34 0 - 65 / [facility] CHEM PANEL CO2 15 24 - 32 05/ MH [facility] CHEM PANEL Chloride Lvl 110 95 - 109 05/ MH [facility] CHEM PANEL AST 37 0 - 37 05/ [facility] CHEM PANEL Bili Total 0.2 0.2 - 1.3 / [facility] CHEM PANEL Alk Phos 135 39 - 136 05/ MH [facility] CHEM PANEL Calcium Lvl 8.4 8.5 - 10.5 07/05 [facility] CHEM PANEL Total 7.6 6.4 - 8.4 /30 MH Protein /2016 [facility] CHEM PANEL Albumin Lvl 3.5 3.5 - 5.0 / [facility] CHEM PANEL Glucose Lvl 95 70 - 99 / MH [facility] CHEM PANEL BUN 11 7 - 22 /30 MH [facility] CHEM PANEL Creatinine 1.12 0.50 - 05/30 MH Lvl 1.40 /2016 [facility] CHEM PANEL Lipase Lvl 199 73 - 393 / MH [facility] CARDIAC BNP 8 <=100 05/30 MH ENZYMES pg/mL /2016 [facility] HEMATOLOGY Eosinophils 0.2 0.0 - 0.5 05/30 MH # /2017 [facility] HEMATOLOGY Monocytes # 0.6 0.0 - 0.8 05/30 MH /2016 [facility] HEMATOLOGY Lymphocytes 2.8 1.0 - 5.5 05/30 MH # /2017 [facility] HEMATOLOGY Basophils # 0.1 0.0 - 0.2 05/30 MH /2017 [facility] HEMATOLOGY Lymphocytes 30.6 20.0 - 07/05 MH 40.0 /2017 [facility] HEMATOLOGY Monocytes 6.1 2.0 - 12.0 07/05 [facility] HEMATOLOGY Segs 59.6 45.0 - 07/05 MH 75.0 /2016 [facility] HEMATOLOGY Basophils 1.3 0.0 - 1.0 07/05 [facility] HEMATOLOGY Segs-Bands # 5.5 1.5 - 8.1 07/05 [facility] HEMATOLOGY Eosinophils 2.4 0.0 - 4.0 07/05 [facility] HEMATOLOGY INR 1.02 0.85 - 07/05 MH 1.17 /2016 [facility] HEMATOLOGY PT 13.6 12.0 - 07/05 MH 14.7 /2016 [facility] HEMATOLOGY MCHC 33.2 32.0 - 07/05 MH 36.0 [facility] HEMATOLOGY MCV 84.9 80.0 - 07/05 94.0 /2016 [facility] MCH 28.2 27.0 - 07/05 MH 31.0 /2016 [facility] HEMATOLOGY Hgb 14.6 14.0 - 07/05 MH 18.0 /2016 [facility] HEMATOLOGY Hct 44.1 42.0 - 07/05 MH 54.0 /2016 [facility] Platelet 239 133 - 450 07/05 [facility] HEMATOLOGY RDW 16.0 11.5 - 07/05 14.5 /2016 [facility] HEMATOLOGY MPV 8.9 7.4 - 10.4 07/05 [facility] RBC 5.19 4.70 - 07/05 MH 6.10 /2016 [facility] HEMATOLOGY WBC 9.3 3.7 - 10.4 07/05 [facility] TOXICOLOGY Etoh (%) 0.424 07/05 [facility] TOXICOLOGY Ethanol Lvl 424 07/05 Result Comment: [facility] Critical Result(s) called to DOC at 07/05/2016 12:51 by BP. Read back OK. ELECTROLYTE Sodium Lvl 140 135 - 145 10/06 [place] s /2015 [facility] ELECTROLYTE BUN 8 7 - 22 10/06 [facility] /2015 [facility] ELECTROLYTE Creatinine 1.04 0.50 - 10/06 [facility] S Lvl 1.40 /2015 [facility] ELECTROLYTE Chloride Lvl 106 95 - 109 10/06 [facility] /2015 [facility] ELECTROLYTE AGAP 12.9 10.0 - 10/06 [facility] S 20.0 [facility] ELECTROLYTE Potassium 3.9 3.5 - 5.1 10/06 [facility] S Lvl [facility] ELECTROLYTE CO2 25 24 - 32 10/06 [facility] ELECTROLYTE Calcium Lvl 8.2 8.5 - 10.5 10/06 [place] [facility] ELECTROLYTE Glucose Lvl 117 70 - 99 10/06 [facility] ELECTROLYTE eGFR 82 10/06 Result [facility] Comment: The [facility] eGFR is Center calculated using the CKD-EPI formula. In most young, healthy individuals the eGFR will be >90 mL/min/1.73m2 . The eGFR declines with age. An eGFR of 60-89 may be normal in some populations, particularly the elderly, for whom the CKD-EPI formula has not been extensively validated. Use of the eGFR is not recommended in the following populations:< br/>
Simin viduals with unstable creatinine concentration s, including patients and those with serious co-morbid conditions.<b r/>
Patie nts with extremes in muscle mass or diet.

The data above are obtained from the National Kidney Disease Education Program (NKDEP) which additionally recommends that when the eGFR is used in patients with extremes of body mass index for purposes of drug dosing, the eGFR should be multiplied by the estimated BMI. CHEM PANEL Phosphorus 4.1 2.5 - 4.5 10/04 [facility] CHEM PANEL Magnesium 1.7 1.8 - 2.4 10/[address] [facility] CHEM PANEL eGFR 95 10/04 Result Comment: The [facility] eGFR is Center calculated using the CKD-EPI formula. In most young, healthy individuals the eGFR will be >90 mL/min/1.73m2 . The eGFR declines with age. An eGFR of 60-89 may be normal in some populations, particularly the elderly, for whom the CKD-EPI formula has not been extensively validated. Use of the eGFR is not recommended in the following populations:< br/>
Simin viduals with unstable creatinine concentration s, including patients and those with serious co-morbid conditions.<b r/>
Patie nts with extremes in muscle mass or diet.

The data above are obtained from the National Kidney Disease Education Program (NKDEP) which additionally recommends that when the eGFR is used in patients with extremes of body mass index for purposes of drug dosing, the eGFR should be multiplied by the estimated BMI. CHEM PANEL Potassium 4.0 3.5 - 5.1 10/04 l [facility] CHEM PANEL Glucose Lvl 87 70 - 99 10/04 [facility] CHEM PANEL BUN 9 7 - 22 10/04 [facility] CHEM PANEL Chloride Lvl 108 95 - 109 10/04 [facility] CHEM PANEL CO2 23 24 - 32 10/04 [facility] CHEM PANEL Sodium Lvl 139 135 - 145 10/04 [facility] CHEM PANEL Creatinine 0.91 0.50 - 10/04 [place] Lvl 1.40 [facility] CHEM PANEL Calcium Lvl 8.5 8.5 - 10.5 10/04 [facility] CHEM PANEL AGAP 12.0 10.0 - 10/04 20.0 [facility] HEMATOLOGY Eosinophils 0.2 0.0 - 0.5 10/04 [place] # /2015 [facility] HEMATOLOGY Monocytes # 0.4 0.0 - 0.8 10/04 s [facility] HEMATOLOGY Segs 44.9 45.0 - 10/04 [place] 75.0 [facility] HEMATOLOGY Lymphocytes 42.3 20.0 - 10/04 [place] 40.0 [facility] HEMATOLOGY Eosinophils 4.6 0.0 - 4.0 10/04 s [facility] HEMATOLOGY Lymphocytes 2.2 1.0 - 5.5 10/04 [place] # [facility] HEMATOLOGY Basophils 1.0 0.0 - 1.0 10/04 [facility] HEMATOLOGY Monocytes 7.2 2.0 - 12.0 10/04 [facility] HEMATOLOGY Segs-Bands # 2.3 1.5 - 8.1 10/04 [facility] HEMATOLOGY RDW 13.8 11.5 - 10/04 [place] 14.5 [facility] HEMATOLOGY Hct 31.6 42.0 - 10/04 [place] 54.0 [facility] HEMATOLOGY MCHC 34.2 32.0 - 10/04 MH [place] 36.0 /2015 [facility] HEMATOLOGY MCV 92.7 80.0 - 10/04 [place] 94.0 /2016 [facility] HEMATOLOGY MCH 31.7 27.0 - 10/04 [place] 31.0 /2015 [facility] HEMATOLOGY RBC 3.41 4.70 - 10/04 [place] 6.10 /2015 [facility] HEMATOLOGY Hgb 10.8 14.0 - 10/04 [place] 18.0 /2015 [facility] HEMATOLOGY WBC 5.2 3.7 - 10.4 10/04 [facility] HEMATOLOGY Platelet 230 133 - 450 10/04 /2015 [facility] HEMATOLOGY MPV 9.8 7.4 - 10.4 10/04 /2015 [facility] HEMATOLOGY INR 1.00 0.85 - 10/04 [place] 1.17 /2015 [facility] HEMATOLOGY PTT 32.3 22.9 - 10/04 [place] 35.8 /2015 [facility] HEMATOLOGY PT 13.5 12.0 - 10/04 [place] 14.7 /2015 [facility] BLOOD BANK Antibody Negative 10/03 [facility] RESULTS Scrn (10/04/15 5:48 AM) /2015 [facility] BLOOD BANK ABO/Rh O POS 10/03 [facility] RESULTS /2015 [facility] URINE AND UA Bili Negative Negative 10/03 [facility] STOOL *NA* /2015 [facility] (10/04/15 5:32 AM) [place] URINE AND UA Ketones Negative Negative 10/03 [facility] STOOL mg/dL mg/dL /2015 [facility] URINE AND UA Blood Negative Negative 10/03 [facility] STOOL (10/04/15 5:32 AM) /2015 [facility] URINE AND UA 0.2 0.1 - 1.0 10/03 [facility] STOOL Urobilinogen /2015 [facility] URINE AND UA Nitrite Negative Negative 10/03 [facility] STOOL (10/04/15 5:32 AM) /2015 [facility] URINE AND UA Leuk Est Negative Negative 10/03 [facility] STOOL (10/04/15 5:32 AM) /2015 [facility] URINE AND UA Protein Negative Negative 10/03 [facility] STOOL mg/dL mg/dL /2015 [facility] URINE AND UA pH 5.5 5.0 - 8.0 10/03 [facility] STOOL /2015 [facility] URINE AND UA Glucose Negative Negative 10/03 [facility] STOOL mg/dL mg/dL /2015 [facility] URINE AND UA Spec Grav 1.025 <=1.030 10/03 [facility] STOOL [facility] URINE AND UA Color Yellow Yellow 10/03 [facility] *NA* /2015 Medical (10/04/15 5:32 AM) [place] URINE AND UA Turbidity Clear Clear 10/03 [facility] (10/04/15 5:32 AM) [facility] URINE AND UA RBC 0-2 /HPF 0 - 2 10/03 [facility] URINE AND UA WBC 0-2 /HPF None Seen 10/03 [facility] /HPF /2015 [facility] URINE AND UA Sq Epi None Seen Few 10/03 [facility] (10/04/15 5:32 AM) [facility] ELECTROLYTE AGAP 16.7 10.0 - 10/02 [facility] S 20.0 [facility] ELECTROLYTE eGFR 86 10/02 Result [facility] Comment: The [facility] eGFR is Center calculated using the CKD-EPI formula. In most young, healthy individuals the eGFR will be >90 mL/min/1.73m2 . The eGFR declines with age. An eGFR of 60-89 may be normal in some populations, particularly the elderly, for whom the CKD-EPI formula has not been extensively validated. Use of the eGFR is not recommended in the following populations:< br/>
Simin viduals with unstable creatinine concentration s, including patients and those with serious co-morbid conditions.<b r/>
Patie nts with extremes in muscle mass or diet.

The data above are obtained from the National Kidney Disease Education Program (NKDEP) which additionally recommends that when the eGFR is used in patients with extremes of body mass index for purposes of drug dosing, the eGFR should be multiplied by the estimated BMI. ELECTROLYTE Calcium Lvl 8.8 8.5 - 10.5 10/02 [place] [facility] ELECTROLYTE Sodium Lvl 137 135 - 145 10/02 [place] [facility] ELECTROLYTE Creatinine 1.00 0.50 - 10/02 [facility] S Lvl 1.40 [facility] ELECTROLYTE BUN 7 7 - 22 10/02 [facility] S [facility] ELECTROLYTE Chloride Lvl 103 95 - 109 10/02 [place] [facility] ELECTROLYTE Potassium 3.7 3.5 - 5.1 10/02 [facility] S Lvl /2015 [facility] Center ELECTROLYTE CO2 21 24 - 32 10/02 S /2015 [facility] Center ELECTROLYTE Glucose Lvl 91 70 - 99 10/02 S [facility] Center HEMATOLOGY Segs 59.7 45.0 - 10/02 [place] 75.0 /2015 [facility] Center HEMATOLOGY Eosinophils 2.6 0.0 - 4.0 10/02 [place] /2015 [facility] HEMATOLOGY Monocytes 6.5 2.0 - 12.0 10/02 [facility] Center HEMATOLOGY Lymphocytes 30.3 20.0 - 10/02 [place] 40.0 /2015 [facility] Center HEMATOLOGY Basophils 0.9 0.0 - 1.0 10/02 [facility] HEMATOLOGY Basophils # 0.1 0.0 - 0.2 10/02 a s [facility] Center HEMATOLOGY Segs-Bands # 4.5 1.5 - 8.1 10/02 [facility] Center HEMATOLOGY Eosinophils 0.2 0.0 - 0.5 10/02 [place] # /2015 [facility] Center HEMATOLOGY Monocytes # 0.5 0.0 - 0.8 10/02 a s [facility] Center HEMATOLOGY Lymphocytes 2.3 1.0 - 5.5 10/02 [facility] s [facility] Center HEMATOLOGY INR 1.01 0.85 - 10/02 [place] 1.17 /2015 [facility] HEMATOLOGY PT 13.6 12.0 - 10/02 [place] 14.7 [facility] HEMATOLOGY PTT 36.5 22.9 - 10/02 [place] 35.8 /2015 [facility] Center HEMATOLOGY RBC 3.41 4.70 - 10/02 [place] 6.10 /2015 [facility] HEMATOLOGY Hgb 10.8 14.0 - 10/02 [place] 18.0 [facility] HEMATOLOGY MCHC 34.1 32.0 - 10/02 [place] 36.0 [facility] HEMATOLOGY MPV 9.5 7.4 - 10.4 10/02 [facility] HEMATOLOGY Platelet 235 133 - 450 10/02 [facility] HEMATOLOGY RDW 13.9 11.5 - 10/02 [place] 14.5 /2016 [facility] Center HEMATOLOGY Hct 31.6 42.0 - 10/02 [place] 54.0 /2016 [facility] [place] HEMATOLOGY MCH 31.6 27.0 - 10/02 MH [place] 31.0 /2016 [facility] HEMATOLOGY MCV 92.7 80.0 - 10/02 [facility] 94.0 /2016 [facility] HEMATOLOGY WBC 7.6 3.7 - 10.4 10/02 [facility] Pathology Reports No Data Provided for This Section Diagnostic Reports Report Value Date Source Brain wo contrast CT Patient Name: ANKUR ANGELES 07/15/2016 [facility] : 1960; Age: 55 years Male MR: [id number] Study: Brain wo contrast CT 07/15/2016 1:00 AM CDT Clinical Indication: repeat ct DLP 1212 mGycm - repeat ct DLP 1212 mGycm. COMPARISON: 07/05/2016. 07/14/2016. TECHNIQUE: CT images were ob tained from the foramen magnum to the vertex without the use of intravenous contrast on a multidetector CT. Coronal and sagittal reconstructions were obtained. FINDINGS: BRAIN PARENCHYMA: There is g eneralized brain parenchymal atrophy related to the patient's age. Nonspecific periventricular white matter disease changes are noted. Atherosclerotic calcifications are present within the gasca tid siphons and distal vertebral arteries. There are no focal mass lesions on this noncontrast head CT. There is no mass effect, midline shift or edema. There are no intra-ax ial or extra-axial fluid col lections. The left frontal cortical hyperdense focus is less apparent when compared to the prior exam. There is no noncontrast CT evidence of a subacute stroke. The pineal, s ellar, brainstem, cerebellum and skull base didier ons appear normal. VENTRICLES: The lateral vent ricles, third and fourth ventricles appear normal. The basilar cisterns are normal. ORBITS, MASTOIDS AND PARANAS AL SINUSES: Dehiscence of the left lamina papyracea. The visualized paranasal sinuses are normal. Partial opacification of the mastoid sinuses. SKULL: There are no calvaria l abnormalities seen. Left frontal soft tissue swelling. IMPRESSION: 1. Left frontal hyperdense focus is less apparent on the current exam. Continued follow-up to document resolution or magnetic resonance imaging of the brain without contrast is recommended. 2. Chronic changes as otherwise described. 3. Left frontal soft tissue swelling. 4. Dehiscence of the left lamina papyracea. 5. Partial opacification of the mastoid sinuses . SL: [id number] Chest 1view DX Patient Name: ANKUR ANGELES 07/14/2016 [facility] [place] : 1960; Age: 55 years y/o Male MR: [id number] Study: Chest 1view DX 07/14/2016 6:10 PM CDT Ordering Physician: Clinical Indication: Fall. Comparison: 07/05/2016 Chest one view Lungs are clear. Cardiomedia stinal silhouette normal. Pulmonary vasculature normal. There is no pleural effusion or pneumothorax. No osseous abnormalities seen. Tortuous aortic arch with calcification. IMPRESSION: No acute finding. SL: ASHLEY Brain wo contrast CT EXAM: CT BRAIN WITHOUT CONTRAST 07/14/2016 [facility] DATE: 07/14/2016 6:10 PM CDT INDICATION: DLP 608 mGycm Fa ll intoxication evaluate for intracerebral traumatic hemorrhage - DLP 608 mGycm Fall intoxication evaluate for intracerebral traumatic hemorrhage ADDITIONAL INFORMATION AND CT DLP: 608 mGy-cm. COMPARISON: None. TECHNIQUE: Routine axial CT images of the brain were obtained. IV contrast: None. FINDINGS: Mild inferior left frontal scalp swelling is pre sent. Small indeterminate hyperden se focus is present within the lateral left frontal cortex may represent a tiny cortical hemorrhage, underlying cortical lesion, artifact, or others. Diffuse cerebral atrophy and mild chronic small vessel ischemic change. Rice- white matter distinction is preserved. The ventricles are normal. The basal cisterns and sulci are normal in size. Mild chronic inflammatory ch lou of the paranasal sinus. Partial opacification of the mastoid air cells. IMPRESSION: 1. Mild inferior left fronta l scalp swelling is present. Small indeterminate hyperdense focus is present within the lateral left frontal cortex may represent a tiny cortical hemorrhage, underlying corti ben lesion, artifact, or oth ers. Dedicated MRI brain without and with contrast recommended for further evaluation. 2. Diffuse cerebral atrophy and mild chronic sma ll vessel ischemic change. If there is further concern for intracranial pathology or acute stroke, MRI of the brain may be performed for complete assessment. SL: [id number] Brain wo contrast CT EXAM: CT BRAIN WITHOUT CONTRAST 07/05/2016 [facility] DATE: 07/05/2016 7:11 PM CDT INDICATION: Headache with Trauma. COMPARISON: None. TECHNIQUE: CT images were ob tained from the foramen magnum to the vertex without intravenous contrast on a multidetector CT. Coronal and sagittal reconstructions were also provided for review. CT radiation dose DLP: 780.3 mGy-cm FINDINGS: No acute intracranial hemorr beny, midline shift, or mass effect is identified. The lopez-white matter differentiation is preserved. The ventricles and sulci are within normal limits, without evidence for hydrocephalus. The orbits, paranasal sinuse s, and mastoid air cells are unremarkable. The calvarium and skull base are intact. Deformity of the nasal bones and nasal septum appear chronic in nature. An old fracture of the left lamina papyracea i s visualized. A left frontal scalp contusion is identified. IMPRESSION: 1. Left frontal scalp contus ion without evidence for acute intracranial hemorrhage. 2. Favored old fractures of the left medial orbital wall, nasal bones, and nasal septum. SL: [id number] Chest 1view DX Patient Name: ANKUR ANGELES 07/05/2016 [facility] [place] : 1960; Age: 55 years y/o Male MR: [id number] Study: Chest 1view DX 07/05/2016 1:00 PM CDT Ordering Physician: Clinical Indication: Chest pain - CP; Comparison: 10/03/2015 Chest one view Low lung volumes. Heart size top normal. No overt congestive heart failure or pulmonary edema. Lungs are clear. No osseous abnormalities. IMPRESSION: Low lung volumes. No acute findings otherwise. SL: [id number] Spine lumbar 2 or 3 EXAM: XR LUMBAR SPINE 3 VIEWS 10/15/2015 [facility] views DX DATE: 10/15/2015 12:28 PM CDT Cent er INDICATION: Pain Post Trauma COMPARISON: Lumbar spine radiographs October 05, 2015 TECHNIQUE: AP, coned lateral and lateral radiogr aphs of the lumbar spine FINDINGS: Bones: - Previous posterior L4-L5 s tabilization. No perihardware lucency or evidence of hardware failure. - Continued grade 1 anterolisthesis at this leve l, which is unchanged. - No superimposed fractures or malalignment is i dentified. - Chronic degeneration throu ghout the lumbar spine, including disc height and vertebral body height loss, as well as spondylosis. Soft tissues: - Multiple surgical clips seen in the soft tissu es. Overall[facility] IMPRESSION: 1. No acute abnormality. 2. Posterior spinal stabili zation at L4-L5 without evidence of hardware issues. 3. Diffuse multilevel degenerative changes. Knee 3 views DX EXAM: XR LEFT HIP 2 VIEWS AND AP PELVIS 10/05/19 16 [facility] EXAM: XR LEFT FEMUR 2 VIEWS Cent er EXAM: XR LEFT KNEE 3 VIEWS EXAM: XR LEFT TIBIA-FIBULA 2 VIEWS EXAM: XR LEFT FOOT 3 VIEWS DATE: 10/05/2015 at 2145 hours INDICATION: Pain from a fall COMPARISON: Pelvis radiograph of 10/03/2015 TECHNIQUE: AP pelvis, AP and frogleg views of the left hip, AP and lateral views of the left femur, AP, lateral and oblique views of the left knee, AP and lateral views of the left tibia-fibula, AP lateral and oblique views of the left foot. FINDINGS: Pelvis/Hip: No acute fr acture or malalignment is identified. L4-5 posterior fusion hardware is present. Surgical clips overlie the pelvis. Femur: No acute fracture or malalignment is iden tified. Knee: No acute fracture or m alalignment is identified. No excessive knee joint fluid is identified. Tibia-fibula: No acute fracture or malalignment is identified. Foot: No acute fracture or malalignment is ident ified. Soft tissues: No soft tissue abnormality is iden tified. IMPRESSION: No acute abnormality. Elbow 3 views DX EXAM: XR LEFT SHOULDER 3 VIEWS 10/05/2015 [facility] EXAM: XR LEFT HUMERUS 2 VIEWS Ce nter EXAM: XR LEFT ELBOW 3 VIEWS EXAM: XR LEFT FOREARM 2 VIEWS EXAM: XR LEFT WRIST 4 VIEWS EXAM: XR LEFT HAND 3 VIEWS DATE: 10/05/2015 6:17 PM CDT INDICATION: Pain from a fall COMPARISON: None available TECHNIQUE: AP internal rotat ion, AP external rotation and axillary views of the left shoulder, AP and lateral views of the left humerus, AP, lateral and oblique views of the left elbow, AP and lateral v iews of the left forearm, PA , ulnar-deviated PA, lateral and oblique views of the left wrist, PA lateral and oblique views of the left hand. FINDINGS: Shoulder: No acute fract ure or malalignment is identified. An old, healed proximal humerus fracture is present. No soft tissue abnormality is identified. Humerus: No additional fract ure or malalignment is identified. No soft tissue abnormality is identified. Elbow: Mildly displaced radi al neck fracture is present, with questionable extension to the radial head articular surface. A small elbow joint effusion is present. Dorsal soft tissue swelling is present. Forearm: No additional acute fracture or malalignment is identified. No soft tissue abnormality is identified. Wrist: No acute fracture or malalignment is identified. No soft tissue abnormality is identified. Hand: Chronic deformity of t he thumb metacarpal head is present. No soft tissue abnormality is identified. A coronary artery stent is partially visualized at the left chest. IMPRESSION: 1. Mildly displaced radial n susan fracture, of uncertain age. Questionable extension to the radial head articular surface. 2. Dorsal soft tissue swelling at the elbow. 3. Old, healed fracture of t he proximal humerus, and chronic deformity of the thumb metacarpal head without acute bony abnormality. Tibia fibula series EXAM: XR LEFT HIP 2 VIEWS AND AP PELVIS 09/07 [facility] DX EXAM: XR LEFT FEMUR 2 VIEWS Cent er EXAM: XR LEFT KNEE 3 VIEWS EXAM: XR LEFT TIBIA-FIBULA 2 VIEWS EXAM: XR LEFT FOOT 3 VIEWS DATE: 10/05/2015 at 2145 hours INDICATION: Pain from a fall COMPARISON: Pelvis radiograph of 10/03/2015 TECHNIQUE: AP pelvis, AP and frogleg views of the left hip, AP and lateral views of the left femur, AP, lateral and oblique views of the left knee, AP and lateral views of the left tibia-fibula, AP lateral and oblique views of the left foot. FINDINGS: Pelvis/Hip: No acute fr acture or malalignment is identified. L4-5 posterior fusion hardware is present. Surgical clips overlie the pelvis. Femur: No acute fracture or malalignment is iden tified. Knee: No acute fracture or m alalignment is identified. No excessive knee joint fluid is identified. Tibia-fibula: No acute fracture or malalignment is identified. Foot: No acute fracture or malalignment is ident ified. Soft tissues: No soft tissue abnormality is iden tified. IMPRESSION: No acute abnormality. Hip 2/3 views uni DX EXAM: XR LEFT HIP 2 VIEWS AND AP PELVIS [facility] EXAM: XR LEFT FEMUR 2 VIEWS Cent er EXAM: XR LEFT KNEE 3 VIEWS EXAM: XR LEFT TIBIA-FIBULA 2 VIEWS EXAM: XR LEFT FOOT 3 VIEWS DATE: 10/05/2015 at 2145 hours INDICATION: Pain from a fall COMPARISON: Pelvis radiograph of 10/03/2015 TECHNIQUE: AP pelvis, AP and frogleg views of the left hip, AP and lateral views of the left femur, AP, lateral and oblique views of the left knee, AP and lateral views of the left tibia-fibula, AP lateral and oblique views of the left foot. FINDINGS: Pelvis/Hip: No acute fr acture or malalignment is identified. L4-5 posterior fusion hardware is present. Surgical clips overlie the pelvis. Femur: No acute fracture or malalignment is iden tified. Knee: No acute fracture or m alalignment is identified. No excessive knee joint fluid is identified. Tibia-fibula: No acute fracture or malalignment is identified. Foot: No acute fracture or malalignment is ident ified. Soft tissues: No soft tissue abnormality is iden tified. IMPRESSION: No acute abnormality. Femur series DX EXAM: XR LEFT HIP 2 VIEWS AND AP PELVIS 10/05/[address] [place] [address] Medical EXAM: XR LEFT FEMUR 2 VIEWS Cent er EXAM: XR LEFT KNEE 3 VIEWS EXAM: XR LEFT TIBIA-FIBULA 2 VIEWS EXAM: XR LEFT FOOT 3 VIEWS DATE: 10/05/2015 at 2145 hours INDICATION: Pain from a fall COMPARISON: Pelvis radiograph of 10/03/2015 TECHNIQUE: AP pelvis, AP and frogleg views of the left hip, AP and lateral views of the left femur, AP, lateral and oblique views of the left knee, AP and lateral views of the left tibia-fibula, AP lateral and oblique views of the left foot. FINDINGS: Pelvis/Hip: No acute fr acture or malalignment is identified. L4-5 posterior fusion hardware is present. Surgical clips overlie the pelvis. Femur: No acute fracture or malalignment is iden tified. Knee: No acute fracture or m alalignment is identified. No excessive knee joint fluid is identified. Tibia-fibula: No acute fracture or malalignment is identified. Foot: No acute fracture or malalignment is ident ified. Soft tissues: No soft tissue abnormality is iden tified. IMPRESSION: No acute abnormality. Foot series DX EXAM: XR LEFT HIP 2 VIEWS AND AP PELVIS 10/05/[address] [place] [address] Medical EXAM: XR LEFT FEMUR 2 VIEWS Cent er EXAM: XR LEFT KNEE 3 VIEWS EXAM: XR LEFT TIBIA-FIBULA 2 VIEWS EXAM: XR LEFT FOOT 3 VIEWS DATE: 10/05/2015 at 2145 hours INDICATION: Pain from a fall COMPARISON: Pelvis radiograph of 10/03/2015 TECHNIQUE: AP pelvis, AP and frogleg views of the left hip, AP and lateral views of the left femur, AP, lateral and oblique views of the left knee, AP and lateral views of the left tibia-fibula, AP lateral and oblique views of the left foot. FINDINGS: Pelvis/Hip: No acute fr acture or malalignment is identified. L4-5 posterior fusion hardware is present. Surgical clips overlie the pelvis. Femur: No acute fracture or malalignment is iden tified. Knee: No acute fracture or m alalignment is identified. No excessive knee joint fluid is identified. Tibia-fibula: No acute fracture or malalignment is identified. Foot: No acute fracture or malalignment is ident ified. Soft tissues: No soft tissue abnormality is iden tified. IMPRESSION: No acute abnormality. Forearm 2 views DX EXAM: XR LEFT SHOULDER 3 VIEWS 10/05/2015 [facility] EXAM: XR LEFT HUMERUS 2 VIEWS Ce nter EXAM: XR LEFT ELBOW 3 VIEWS EXAM: XR LEFT FOREARM 2 VIEWS EXAM: XR LEFT WRIST 4 VIEWS EXAM: XR LEFT HAND 3 VIEWS DATE: 10/05/2015 6:17 PM CDT INDICATION: Pain from a fall COMPARISON: None available TECHNIQUE: AP internal rotat ion, AP external rotation and axillary views of the left shoulder, AP and lateral views of the left humerus, AP, lateral and oblique views of the left elbow, AP and lateral v iews of the left forearm, PA , ulnar-deviated PA, lateral and oblique views of the left wrist, PA lateral and oblique views of the left hand. FINDINGS: Shoulder: No acute fract ure or malalignment is identified. An old, healed proximal humerus fracture is present. No soft tissue abnormality is identified. Humerus: No additional fract ure or malalignment is identified. No soft tissue abnormality is identified. Elbow: Mildly displaced radi al neck fracture is present, with questionable extension to the radial head articular surface. A small elbow joint effusion is present. Dorsal soft tissue swelling is present. Forearm: No additional acute fracture or malalignment is identified. No soft tissue abnormality is identified. Wrist: No acute fracture or malalignment is identified. No soft tissue abnormality is identified. Hand: Chronic deformity of t he thumb metacarpal head is present. No soft tissue abnormality is identified. A coronary artery stent is partially visualized at the left chest. IMPRESSION: 1. Mildly displaced radial n susan fracture, of uncertain age. Questionable extension to the radial head articular surface. 2. Dorsal soft tissue swelling at the elbow. 3. Old, healed fracture of t he proximal humerus, and chronic deformity of the thumb metacarpal head without acute bony abnormality. Hand 3 views DX EXAM: XR LEFT SHOULDER 3 VIEWS 10/05/2015 [facility] EXAM: XR LEFT HUMERUS 2 VIEWS Ce nter EXAM: XR LEFT ELBOW 3 VIEWS EXAM: XR LEFT FOREARM 2 VIEWS EXAM: XR LEFT WRIST 4 VIEWS EXAM: XR LEFT HAND 3 VIEWS DATE: 10/05/2015 6:17 PM CDT INDICATION: Pain from a fall COMPARISON: None available TECHNIQUE: AP internal rotat ion, AP external rotation and axillary views of the left shoulder, AP and lateral views of the left humerus, AP, lateral and oblique views of the left elbow, AP and lateral v iews of the left forearm, PA , ulnar-deviated PA, lateral and oblique views of the left wrist, PA lateral and oblique views of the left hand. FINDINGS: Shoulder: No acute fract ure or malalignment is identified. An old, healed proximal humerus fracture is present. No soft tissue abnormality is identified. Humerus: No additional fract ure or malalignment is identified. No soft tissue abnormality is identified. Elbow: Mildly displaced radi al neck fracture is present, with questionable extension to the radial head articular surface. A small elbow joint effusion is present. Dorsal soft tissue swelling is present. Forearm: No additional acute fracture or malalignment is identified. No soft tissue abnormality is identified. Wrist: No acute fracture or malalignment is identified. No soft tissue abnormality is identified. Hand: Chronic deformity of t he thumb metacarpal head is present. No soft tissue abnormality is identified. A coronary artery stent is partially visualized at the left chest. IMPRESSION: 1. Mildly displaced radial n susan fracture, of uncertain age. Questionable extension to the radial head articular surface. 2. Dorsal soft tissue swelling at the elbow. 3. Old, healed fracture of t he proximal humerus, and chronic deformity of the thumb metacarpal head without acute bony abnormality. Shoulder series DX EXAM: XR LEFT SHOULDER 3 VIEWS 10/05/2015 [facility] EXAM: XR LEFT HUMERUS 2 VIEWS Ce nter EXAM: XR LEFT ELBOW 3 VIEWS EXAM: XR LEFT FOREARM 2 VIEWS EXAM: XR LEFT WRIST 4 VIEWS EXAM: XR LEFT HAND 3 VIEWS DATE: 10/05/2015 6:17 PM CDT INDICATION: Pain from a fall COMPARISON: None available TECHNIQUE: AP internal rotat ion, AP external rotation and axillary views of the left shoulder, AP and lateral views of the left humerus, AP, lateral and oblique views of the left elbow, AP and lateral v iews of the left forearm, PA , ulnar-deviated PA, lateral and oblique views of the left wrist, PA lateral and oblique views of the left hand. FINDINGS: Shoulder: No acute fract ure or malalignment is identified. An old, healed proximal humerus fracture is present. No soft tissue abnormality is identified. Humerus: No additional fract ure or malalignment is identified. No soft tissue abnormality is identified. Elbow: Mildly displaced radi al neck fracture is present, with questionable extension to the radial head articular surface. A small elbow joint effusion is present. Dorsal soft tissue swelling is present. Forearm: No additional acute fracture or malalignment is identified. No soft tissue abnormality is identified. Wrist: No acute fracture or malalignment is identified. No soft tissue abnormality is identified. Hand: Chronic deformity of t he thumb metacarpal head is present. No soft tissue abnormality is identified. A coronary artery stent is partially visualized at the left chest. IMPRESSION: 1. Mildly displaced radial n susan fracture, of uncertain age. Questionable extension to the radial head articular surface. 2. Dorsal soft tissue swelling at the elbow. 3. Old, healed fracture of t he proximal humerus, and chronic deformity of the thumb metacarpal head without acute bony abnormality. Humerus 2 views DX EXAM: XR LEFT SHOULDER 3 VIEWS 10/05/2015 [facility] EXAM: XR LEFT HUMERUS 2 VIEWS Ce nter EXAM: XR LEFT ELBOW 3 VIEWS EXAM: XR LEFT FOREARM 2 VIEWS EXAM: XR LEFT WRIST 4 VIEWS EXAM: XR LEFT HAND 3 VIEWS DATE: 10/05/2015 6:17 PM CDT INDICATION: Pain from a fall COMPARISON: None available TECHNIQUE: AP internal rotat ion, AP external rotation and axillary views of the left shoulder, AP and lateral views of the left humerus, AP, lateral and oblique views of the left elbow, AP and lateral v iews of the left forearm, PA , ulnar-deviated PA, lateral and oblique views of the left wrist, PA lateral and oblique views of the left hand. FINDINGS: Shoulder: No acute fract ure or malalignment is identified. An old, healed proximal humerus fracture is present. No soft tissue abnormality is identified. Humerus: No additional fract ure or malalignment is identified. No soft tissue abnormality is identified. Elbow: Mildly displaced radi al neck fracture is present, with questionable extension to the radial head articular surface. A small elbow joint effusion is present. Dorsal soft tissue swelling is present. Forearm: No additional acute fracture or malalignment is identified. No soft tissue abnormality is identified. Wrist: No acute fracture or malalignment is identified. No soft tissue abnormality is identified. Hand: Chronic deformity of t he thumb metacarpal head is present. No soft tissue abnormality is identified. A coronary artery stent is partially visualized at the left chest. IMPRESSION: 1. Mildly displaced radial n susan fracture, of uncertain age. Questionable extension to the radial head articular surface. 2. Dorsal soft tissue swelling at the elbow. 3. Old, healed fracture of t he proximal humerus, and chronic deformity of the thumb metacarpal head without acute bony abnormality. Wrist complete DX EXAM: XR LEFT SHOULDER 3 VIEWS 10/05/2015 [facility] EXAM: XR LEFT HUMERUS 2 VIEWS Ce nter EXAM: XR LEFT ELBOW 3 VIEWS EXAM: XR LEFT FOREARM 2 VIEWS EXAM: XR LEFT WRIST 4 VIEWS EXAM: XR LEFT HAND 3 VIEWS DATE: 10/05/2015 6:17 PM CDT INDICATION: Pain from a fall COMPARISON: None available TECHNIQUE: AP internal rotat ion, AP external rotation and axillary views of the left shoulder, AP and lateral views of the left humerus, AP, lateral and oblique views of the left elbow, AP and lateral v iews of the left forearm, PA , ulnar-deviated PA, lateral and oblique views of the left wrist, PA lateral and oblique views of the left hand. FINDINGS: Shoulder: No acute fract ure or malalignment is identified. An old, healed proximal humerus fracture is present. No soft tissue abnormality is identified. Humerus: No additional fract ure or malalignment is identified. No soft tissue abnormality is identified. Elbow: Mildly displaced radi al neck fracture is present, with questionable extension to the radial head articular surface. A small elbow joint effusion is present. Dorsal soft tissue swelling is present. Forearm: No additional acute fracture or malalignment is identified. No soft tissue abnormality is identified. Wrist: No acute fracture or malalignment is identified. No soft tissue abnormality is identified. Hand: Chronic deformity of t he thumb metacarpal head is present. No soft tissue abnormality is identified. A coronary artery stent is partially visualized at the left chest. IMPRESSION: 1. Mildly displaced radial n susan fracture, of uncertain age. Questionable extension to the radial head articular surface. 2. Dorsal soft tissue swelling at the elbow. 3. Old, healed fracture of t he proximal humerus, and chronic deformity of the thumb metacarpal head without acute bony abnormality. Spine lumbar 2 or 3 EXAM: XR Spine lumbar 2 or 3 views DX 2015 [facility] views DX DATE: 10/05/2015 6:17 PM CDT Cent er INDICATION: Pain, Lumbar region Pain. COMPARISON: October 03, 2015 TECHNIQUE: AP and lateral projections of lumb ar spine. DISCUSSION: Posterior spina l stabilization is been performed at L4/L5 with grade 1 listhesis at this level. Multilevel degenerative ch anges are present. No soft tissue abnormality is identified. Diffuse spondylotic changes of the lower lumbar spine is present. IMPRESSION: No acute abnormality. Diff use multilevel spondylotic changes are present. Posterior spinal stabilization at L4/L5 is noted. . Spine cervical EXAM: XR CERVICAL SPINE 5 VIEWS 10/04/2015 [facility] series DX DATE: 10/04/2015 2:00 AM CDT Cent er INDICATION: Pain Post Trauma COMPARISON: None. TECHNIQUE: AP, lateral, ope n-mouth odontoid, RPO and LPO radiographs of the cervical spine show from the skull base through C7-T1. Oblique view is limited for evaluation of the right-sided neural foramina. FINDINGS: No acute fracture or malalignment seen. C4-C6 osteophyte formation is seen with early disc space narrowing and uncovertebral hypertrophy at C5-C6. IMPRESSION: 1. No acute fracture or malalignment of the cerv ical spine. 2. Mild cervical spondylosis. Spine lumbar wo Exam: MRI lumbar spine without contrast. 016 [facility] contrast MRI INDICATION: Radiculopathy. Cente r COMPARISON: Radiograph of the same day. TECHNIQUE: Multiecho multipl chu MR sequences of the lumbar spine are obtained without gadolinium. Discussion: Postoperative ch anges of posterior fusion at L4 and L5 with grade 1 anterolisthesis of L4 on L5 are redemonstrated. Chronic endplate deformities along the inferior endplate of L1 and superior endplate of L2. L1-L2: No canal or foraminal stenosis. L2-L3: Annular bulging with superimposed central disc protrusion causing mild crowding of the cauda equina nerve roots. Bilateral facet arthropathy. Foraminal stenosis without exiting nerve root compression. L3-L4: No canal stenosis. Mi ld foraminal stenosis bilaterally with encroachment upon the exiting left L3 nerve root. L4-L5: Disc is decreased in height. Annular bulge causing mild canal and lateral recess stenosis. Bilateral foraminal stenosis impinging the exiting L4 nerve roots. L5-S1: No canal stenosis. Mi ld foraminal stenosis bilaterally without compression the exiting nerve roots. IMPRESSION: 1. Postoperative changes of posterior fusion at L4 and L5 with grade 1 anterolisthesis of L4 on L5 are redemonstrated. 2. Foraminal stenosis at L4-L5 impinging the exi ting L4 nerve roots. 3. 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 Chest 1view DX EXAM: XR CHEST 1 VIEW 10/03/2015 [facility] edical DATE: 10/03/2015 6:06 PM CDT Cent er INDICATION: Pain Post Trauma COMPARISON: None TECHNIQUE: AP chest FINDINGS: Lines and tubes: None. Lungs and pleura: No pulmonary or pleural based abnormality is identified. Heart and mediastinum: The h eart size is normal for technique. The mediastinal contours are normal. Bones: No acute bony abnormality is identified. IMPRESSION: No acute cardiopulmonary abnormalit y. Spine thoracic 3 EXAM: XR LUMBAR SPINE 3 VIEWS 10/03/2015 [facility] Medical views DX EXAM: XR THORACIC SPINE 3 VIEWS Center DATE: 10/03/2015 6:16 PM CDT INDICATION: Pain Post Trauma COMPARISON: None TECHNIQUE: AP, coned lateral and lateral radiographs of the lumbar spine. AP, lateral, swimmer's lateral views of the thoracic spine. FINDINGS: Thoracic spine: No acute fra cture or malalignment is appreciated. There is mild multilevel disc space narrowing. No soft tissue abnormality. Lumbar spine:5 lumbar type, non-rib bearing vertebral bodies are present. There are multiple chronic appearing mild compression deformities of several lumbar vertebrae, most prominently at L2, with abou t 20% loss of height. Also s een is multilevel osteophyte formation and disc space narrowing most prominent at L4/5 and L5/S1. There has been prior transpedicular screw placement without evidence of hard solano fracture or infection. There is grade 1 ant erolisthesis of L4 and L5. Surgical clips project over the abdomen and right pelvis. No soft tissue hemoptysis. IMPRESSION: 1. Moderate spondylosis of the thoracic spine without appreciable fracture or malalignment. 2. Moderate to severe spond ylosis of the lumbar spine, with multiple chronic compression deformities, most prominent at L2 with about 20% height loss. Pelvis AP DX EXAM: XR PELVIS 1 VIEW 10/03/2015 [facility] DATE: 10/03/2015 6:06 PM CDT Cent er INDICATION: Pain Post Trauma COMPARISON: None TECHNIQUE: A single AP supine radiograph of the pelvis FINDINGS: No acute fracture or malalignment is identified. The soft tissues are unremarkable. Surgical clips project over the abdomen and right pelvis. IMPRESSION: No acute abnormality. Spine lumbar 2 or 3 EXAM: XR LUMBAR SPINE 3 VIEWS 10/03/2015 [facility] Medical views DX EXAM: XR THORACIC SPINE 3 VIEWS Center DATE: 10/03/2015 6:16 PM CDT INDICATION: Pain Post Trauma COMPARISON: None TECHNIQUE: AP, coned lateral and lateral radiographs of the lumbar spine. AP, lateral, swimmer's lateral views of the thoracic spine. FINDINGS: Thoracic spine: No acute fra cture or malalignment is appreciated. There is mild multilevel disc space narrowing. No soft tissue abnormality. Lumbar spine:5 lumbar type, non-rib bearing vertebral bodies are present. There are multiple chronic appearing mild compression deformities of several lumbar vertebrae, most prominently at L2, with abou t 20% loss of height. Also s een is multilevel osteophyte formation and disc space narrowing most prominent at L4/5 and L5/S1. There has been prior transpedicular screw placement without evidence of hard solano fracture or infection. There is grade 1 ant erolisthesis of L4 and L5. Surgical clips project over the abdomen and right pelvis. No soft tissue hemoptysis. IMPRESSION: 1. Moderate spondylosis of the thoracic spine without appreciable fracture or malalignment. 2. Moderate to severe spond ylosis of the lumbar spine, with multiple chronic compression deformities, most prominent at L2 with about 20% height loss. Consultation Notes No Data Provided for This Section Discharge Summaries No Data Provided for This Section History and Physicals No Data Provided for This Section Vital Signs Vital Sign Value Date Comments Source Heart Rate 108 07/15/2016 [facility] Temperature Oral (F) 98.3 F 07/15/2016 [facility] Systolic (mm Hg) 122 07/15/2016 [facility] Diastolic (mm Hg) 75 07/15/2016 [facility] st Respitory Rate 18 07/15/2016 [facility] Weight 117 07/15/2016 [facility] BMI Calculated 37.01 07/15/2016 [facility] Height 177.8 cm 07/15/2016 [facility] Temperature Oral (F) 98.4 F 07/15/2016 [facility] Systolic (mm Hg) 123 07/15/2016 [facility] Diastolic (mm Hg) 80 07/15/2016 [facility] st Respitory Rate 20 07/15/2016 [facility] Heart Rate 128 07/15/2016 [facility] Temperature Oral (F) 98 F 07/15/2016 [facility] Respitory Rate 20 07/15/2016 [facility] Heart Rate 121 07/15/2016 [facility] Systolic (mm Hg) 108 07/15/2016 [facility] Diastolic (mm Hg) 58 07/15/2016 [facility] Height 177.8 cm 07/15/2016 [facility] BMI Calculated 35.95 07/15/2016 [facility] Weight 113.636 07/15/2016 [facility] BMI Calculated 23.78 07/14/2016 [facility] Weight 79.545 07/14/2016 [facility] Height 182.88 cm 07/14/2016 [facility] Respitory Rate 18 07/06/2016 [facility] Systolic (mm Hg) 124 07/06/2016 [facility] Di[place] (mm Hg) 81 07/06/2016 [facility] st Heart Rate 108 07/06/2016 [facility] Temperature Oral (F) 98 F 07/06/2016 [facility] Systolic (mm Hg) 128 07/06/2016 [facility] Diastolic (mm Hg) 88 07/06/2016 [facility] st Heart Rate 98 07/06/2016 [facility] Respitory Rate 18 07/06/2016 [facility] Temperature Oral (F) 97.8 F 07/06/2016 [facility] Temperature Oral (F) 98.1 F 07/06/2016 [facility] Heart Rate 114 07/06/2016 [facility] Systolic (mm Hg) 111 07/06/2016 [facility] Diastolic (mm Hg) 68 07/06/2016 [facility] st Respitory Rate 18 07/06/2016 [facility] Height 175.26 cm 07/06/2016 [facility] BMI Calculated 42.58 07/06/2016 [facility] Weight 127.027 07/06/2016 [facility] Height 172.72 cm 07/06/2016 [facility] BMI Calculated 38.09 07/05/2016 [facility] Weight 127.273 07/05/2016 [facility] Height 182.8 cm 07/05/2016 [facility] Respitory Rate 20 10/15/2015 [facility] Heart [facility] 88 [facility] Systolic (mm Hg) 150 10/15/2015 [facility] dical Center Diastolic (mm Hg) 95 10/15/2015 [facility] Height 175.26 cm 10[facility]15/[facility] BMI Calculated 34.48 10/15/2015 [facility] Weight 105.909 10/15/2015 [facility] Respitory Rate 18 10/15/2015 [facility] Heart Rate 78 10/15/[facility] Temperature Oral (F) 98.1 F 10/15/2015 [facility] Systolic (mm Hg) 151 10/15/2015 [facility] dical Center Diastolic (mm Hg) 80 10/15/2015 [facility] edical Center Systolic (mm Hg) 137 10/08/2015 [facility] Center Diastolic (mm Hg) 80 10/08/2015 [facility] Heart Rate 60 10/08/2015 [facility] Respitory Rate 18 10/08/2015 [facility] Temperature Oral (F) 97.9 F 10/08/2015 [facility] Respitory Rate 20 10/08/2015 [facility] Systolic (mm Hg) 132 10/08/2015 [facility] d[facility] Center Diastolic (mm Hg) 78 10/08/2015 [facility] Temperature Oral (F) 97.9 F 10/08/2015 [facility] Heart Rate 65 10/08/2015 [facility] Systolic (mm Hg) 144 10/08/2015 [facility] dical Center Diastolic (mm Hg) 78 10/08/2015 [facility] edical Center Respitory Rate 19 10/08/2015 [facility] Temperature Oral (F) 97.8 F 10/08/2015 [facility] Heart Rate 64 10/08/2015 [facility] Weight 104.545 10/03/2015 [facility] Height 175.26 cm 10/03/2015 [facility] BMI Calculated 34.04 10/03/2015 [facility] Encounters Location Location Encounter Encounter Reason Attending ADM DC Stat us Source Details Type Number For Provider Date Date Visit [facility] Emergency [id number] Asiya 08/07 08/07 [facility] 0 Robi /2013 [facility] [id number] Poojitha 10/02 10/07 [facility] 1 [place] /2015 [facility] [id number] Jihan Paigey 10/14 10/14 [facility] 2 /2015 [facility] Observation [id number] Vincentia 07/05 07/06 [facility] 3 Nwadi [facility] Observation [id number] Adolfo Albright 07/14 07/15 [facility] Procedures Procedure Code Date Perfomer Comments Source Appendectomy [id number] [facility] Cholecystectomy [id number] [facility] Ileostomy [id number] [facility] Lumbar spinal [id number] L4-L5 [facility] fusion<sup>1</sup> [facility] Assessment and Plan Assessment and Plan Date Source Extracted from:Title: Medicine H&P * 07/15/2016 [facility] Author: Adolfo Albright DO Date: 07/14/16 Impression and Plan 55-year-old male with past medical histo ry ulcerative colitis status post ileostomy, PTSD, hypertension, IBS, CAD, alcohol abuse and dependence, vertigo who presented to ER today due to acute alcohol intoxication, found to have a EtOH level 0.466. Acute alcohol intoxicationblood alcohol level0.466CIWA protocolAtivan as needed. Banana bag ordered. Monitor closely. UTIcontinue Rocephin, follow urine cultures Small indeterminate hyperdense focus wit hin lateral left frontal cortex- incidental finding on CT–neurosurgery was consulted in the ERDr. Sherman- recommending repeat CT head in 4 hours. If stable, is cleared from neurosurgery Contusion of head - stable Dehydration - banana bag IVF Elevated ALT measurement, Elevated AST (SGOT) 2/2 alchol de pendence-monitor Fall at home H/O ileostomy Obesity CAD- cont bb BPH- cont flomax Alcohol Abuse/Tobacco dependence- counseled Patient is full code DVT prophylaxis: SCDs, ambulation Extracted from:Title: Neurosurgery Trauma Note Author: Britton Sherman MD Date: 07/14/16 Assessment/Plan Abnormal CT scan, head I reviewed the scan CT of the headwit h the ER physician ,there is no evidence of acute intracranial injury,there is a subtle hyperdensity in the left lateral frontal lobe that is likely representativ e of an old calcification. I would recom mend a repeat CT scan in 4 hours,and if there is no evidence of acute intracranial injury,I recommend discharge at that time. There is no need for any neurosurgical follow-upor additional imaging. Acute alcohol intoxication Alcohol abuse Bacterial UTI Contusion of head Dehydration Elevated ALT measurement, Elevated AST (SGOT) Fall at home H/O ileostomy Obesity Extracted from:Title: APMS Consult Note 10/08/2015 [facility] Author: Kristie Pandey MD Date: 10/08/15 Patient: ANKUR ANGELES Age: 54 years Sex: Male : 1960 Associated Diagnoses: None Author: Kristie Pandey MD Basic Information Referral source Reason for consultation: Complex Acute Pain Chief Complaint acute on chronic backpain s/p fall History of Present Illness Patient is a 54 yo M with hx of ulcerati ve colitis (s/p ileostomy) and chronic back pain s/p fall from standing height with a L2/L3 disc herniation causing mild spinal canal stenosis w/o sig neural comp ression, chronic L2 compression fx, and recent L4[facility]5 [facility]IF at the [facility] on [facility]. [facility] has been consulted for transition to PO regimen on patient with hx of acute on chronic back pain with narcotic usage. Patient seen at bedside. Patient resting comfortably and appearing comfortable, in no acute distress, and eating lunch when APMS entered room. Patient described back pain and hip pain as a burning type pain that radiates into legs bilaterally extending to the knees. Pain occurs at rest and is constant. Patient fills medications at [facility]. Histories Past Medical History: Resolved Back pain ([id number]): Resolved. UC (ulcerative colitis) (364133656): Resolved. PTSD (post-traumatic stress disorder) (20661016): Resolved. Family History: Cataract Mother Diabetes mellitus Mother Heart attack Brother Procedure history: Lumbar spinal fusion ([id number]). Comments: 10/03/2015 17:50 - Phong Brown RN L4-L5 Ileostomy ([id number]). Social History Social and Psychosocial Habits Tobacco 10/04/2015 Use: Current every day smoker Type: Cigarettes Ready to change: No Concerns about tobacco use in household: No Exposure to Tobacco Smoke None Cigarette Smoking Last 365 Days No Reg Smoking Cessation Counseling No . Health Status Allergies: Allergic Reactions (All) Severity Not Documented NKDA- No reactions were documented., Allergies (1) Active Reaction NKDA None Documented Current medications: (Selected) Inpatient Medications Ordered Bentyl: 20 mg, 1 tab, PO, QID Dilaudid: 4 mg, 2 tab, PO, Q4H, PRN: Pain Score 4-6 Dilaudid: 8 mg, 4 tab, PO, Q4H, PRN: Pain Score 7-10 Flomax: 0.4 mg, 1 cap, PO, After Dinner Lidoderm 5% topical film (patch): 1 patch, TOP, Q24H acetaminophen: 1,000 mg, 2 tab, PO, Q6Hnow gabapentin: 600 mg, 2 cap, PO, Q8Hnow heparin 5000 units/mL injectable solution: 5,000 unit, 1 mL, SUB-Q, Q8H melatonin: 3 mg, 1 tab, PO, Bedtime, PRN: Insomnia methocarbamol: 1,000 mg, 2 tab, PO, Q8H naproxen: 500 mg, 1 tab, PO, [id number] oxyCONTIN: 20 mg, 1 tab, PO, Q12H promethazine: 12.5 mg, 1 tab, PO, Q4H, PRN: Nausea and Vomit ing tramadol: 100 mg, 2 tab, PO, Q6Hnow Prescriptions Prescribed acetaminophen 500 mg oral tablet: 1,000 mg, 2 tab, PO, Q6Hnow, for 5 day, 40 tab, 0 Refill(s) dicyclomine 20 mg oral tablet: 20 mg, 1 tab, PO, QID, for 7 day, 28 tab, 0 Refill(s) gabapentin 300 mg oral capsule: 600 mg, 2 cap, PO, Q8Hnow, for 5 day, 30 cap, 0 Refill(s) melatonin 3 mg oral tablet: 3 mg, 1 tab, PO, Bedtime, for 5 day, PRN: Insomnia, 5 tab, 0 Refill(s) methocarbamol 500 mg oral tablet: 1,000 mg, 2 tab, PO, Q8H, for 5 day, 30 tab, 0 Refill(s) oxyCODONE 20 mg oral tablet, extended re lease: 20 mg, 1 tab, PO, Q12H, for 7 day, 14 tab, 0 Refill(s) tamsulosin 0.4 mg oral capsule: 0.4 mg, 1 cap, PO, After Dinner, for 14 day, 14 cap, 0 Refill(s), Medications (14) Active Scheduled: (10) acetaminophen 500 mg TAB 1,000 mg 2 tab, PO, Q6Hnow dicyclomine 20 mg TAB 20 mg 1 tab, PO, QID gabapentin 300 mg CAP 600 mg 2 cap, PO, Q8Hnow heparin 5000 unit/1 ml INJ VL 5,000 unit 1 mL, SUB-Q, Q8H lidocaine 5% top patch 1 patch, TOP, Q24H methocarbamol 500 mg TAB 1,000 mg 2 tab, PO, Q8H naproxen 500 mg TAB 500 mg 1 tab, PO, [id number] oxyCODONE 20 mg ERT 20 mg 1 tab, PO, Q12H tamsulosin 0.4 mg CAP 0.4 mg 1 cap, PO, After Dinner traMADol 50 mg TAB 100 mg 2 tab, PO, Q6Hnow Continuous: (0) PRN: (4) HYDROmorphone 2 mg TAB 8 mg 4 tab, PO, Q4H HYDROmorphone 2 mg TAB 4 mg 2 tab, PO, Q4H melatonin 3 mg TAB 3 mg 1 tab, PO, Bedtime promethazine 12.5 mg TAB 12.5 mg 1 tab, PO, Q4H Problem list: No qualifying data available Review of Systems Constitutional: Negative except as documented in history of present illness. Cardiovascular: Negative except as documented in history of present illness. Ear/Nose/Mouth/Throat: Negative except as documented in history of present illness. Respiratory: Negative except as documented in history of pr esent illness. Gastrointestinal: Negative except as documented in hi story of present illness. Musculoskeletal: Muscle pain, Decreased range of motion, Tr auma. Back pain: In the lower region, The pain is moderate, R adiating. Neurologic: Negative except as documented in history of pre sent illness. Psychiatric: Negative except as documented in history of pr esent illness. Endocrine: Negative except as documented in history of pres ent illness. Hematology/Lymphatics: Negative except as documented in history of present illness. Physical Examination VS/Measurements Measurements from flowsheet : Measurements 10/08/2015 12:22 Height in Feet 5 ft Weight in Pounds 230 lb 10/08/2015 11:47 Height in Feet 5 ft Weight in Pounds 230 lb , Vital Signs (last 24 hrs) Last Charted _ Temp Oral 97.9 DegF (OCT 07) Heart Rate Peripheral 60 bpm (OCT 07) Resp Rate 18 BRMIN (OCT 07) SBP 137 mmHg (OCT 07) DBP 80 mmHg (OCT 07) SpO2 98 % (OCT 07) General: Alert and oriented, Mild distress. Eye: Pupils are equal, round and reacti ve to light, Extraocular movements are intact. HENT: Normocephalic. Neck: No jugular venous distention. Respiratory: Respirations are non-labored, Symmetrical ches t wall expansion. Cardiovascular: Normal peripheral perfusion. Gastrointestinal: Non-distended. Musculoskeletal Decreased ROM LUE. LUE in sling. Integumentary: Warm, Dry. Neurologic: Alert, Oriented. Cognition and Speech: Oriented, Speech clear and coherent. Psychiatric: Cooperative, Appropriate mood and affect. Review / Management Results review: Labs (Last four charted values) WBC 5.2 (OCT 04) 7.6 (OCT 02) Hgb L 10.8 (OCT 04) L 10.8 (OCT 02) Hct L 31.6 (OCT 04) L 31.6 (OCT 02) Plt 230 (OCT 04) 235 (OCT 02) Na 140 (OCT 06) 139 (OCT 04) 137 (OCT 02) K 3.9 (OCT 06) 4.0 (OCT 04) 3.7 (OCT 02) CO2 25 (OCT 06) L 23 (OCT 04) L 21 (OCT 02) Cl 106 (OCT 06) 108 (OCT 04) 103 (OCT 02) Cr 1.04 (OCT 06) 0.91 (OCT 04) 1.00 (OCT 02) BUN 8 (OCT 06) 9 (OCT 04) 7 (OCT 02) Glucose Random H 117 (OCT 06) 87 (OCT 04) 91 (OCT 02) Mg L 1.7 (OCT 04) Phos 4.1 (OCT 04) Ca L 8.2 (OCT 06) 8.5 (A ) 8.8 (OCT 02) PT 13.5 (OCT 04) 13.6 (OCT 02) INR 1.00 (OCT 04) 1.01 (OCT 02) PTT 32.3 (OCT 04) H 36.5 (SEP 07) . Chest x-ray results ECG interpretation Impression and Plan Diagnosis Orders Education and Follow-up: Counseled : Regarding treatment, Regarding medications. Patient is a 54 yo M with hx of ulcerat jj colitis (s/p ileostomy) and chronic back pain s/p fall from standing height with a L2/L3 disc herniation causing mild spinal canal stenosis w/o sig neural com pression, chronic L2 compression fx, and recent L4-5 [facility]IF at the [facility] on [facility]. [facility] has been consulted for transition to PO regimen on patient with hx of acute on chronic back pain with narcotic usage. 10/07- No acute distress. Ready for discha rge today per primary team. Patient requesting for prescription for pain medications. We will be happy to give prescription for 5 days. He needs to follow up at [facility] for further management. - Continue methocarbamol 1,000 mg PO Q8H - Continue acetaminophen 1,000 mg PO Q6H - Continue gabapentin to 600 mg PO Q8H - Continue oxyCODONE (oxyCONTIN) 20 mg PO Q12H - Continue tramadol 100 mg PO Q6h AP[facility] will sign off. Please call [phone] for further questions . Kristie Pandey MD PGY3 Anesthesiolgy Addendum by Abraham Davis MD on 10/10/2015 09:00 TEACHING PHYSICIAN ADDENDUM: I saw and p ersonally examined this patient and discussed the plan of care with this resident. I have reviewed the note below and agree with the history, examination findings and the plan of care. Extracted from:Title: Discharge Note Author: Syeda Hale MD Date: 10/08/15 Discharge Plan 1.Fusion of lumbar spine Due to the history of lower back surge ry and pain (09/27),he continued to complain about backpain. He had repeat imaging studies here which showed stable MRI. MRI from this admission showed posterior f usion at L4 and L5, foraminal stenosis a t L4-L5 impinging the exiting L4 nerve roots and canal stenosis at L2-L3. Also hadleft subacuteradial head fracture for which ortho recommended NWB LUE in sling, AROM as tolerated. 2.Acute pain He complains about severe lower back p ain that is limiting his ability to do his daily actitivies of living. Consulted Pain management for help with his multiple narcotics. Will discharge patient with 5 days of narcotics. 3.Colitis, ulcerative Patient has an ileostomy placed in 201 5 which he reports has been followed by GI at [facility]. Will need tofollow up there for his needs. 4.Acute urinary retention Likely due to his spinal trauma. Faile d trial of void while in the hospital with retention of high volume urine on bladder scanning. Tamsulosin and bentyl were added to his medication regimen.Spoke [facility] urology who recommended leaving the f oley in place and follow up outpatient in 2 weeks. Will train patient to do in and out cath (patient preference) prior to dc and he will follow up with urology in 2 weeks at the [facility] Orders: [id number] Home Health Order -Detailed [id number]-[id number] Home Health Order -Detailed MD to Nurse Order, [facility] Patient Discharge Condition Improved; stable Discharge Disposition Home; follow ups at the [facility]; Total time spent with patient >60 minutes. Addendum by Syeda Hale MD on 10/08/2015 17:52 CDT Discharge Medications: Orders: acetaminophen 500 mg oral tablet, 1,000 mg = 2 tab, PO, Q6Hnow, X 5 day, # 40 tab, 0 Refill(s) dicyclomine 20 mg oral tablet, 20 mg = 1 tab, PO, QID, # 28 tab, 0 Refill(s) gabapentin 300 mg oral capsule, 600 mg = 2 cap, PO, Q8Hnow, # 30 cap, 0 Refill(s) Dilaudid 4 mg oral tablet, 4 mg = 1 tab , PO, Q4H, PRN Pain, X 7 day, # 42 tab, 0 Refill(s), given to patient melatonin 3 mg oral tablet, 3 mg = 1 ta b, PO, Bedtime, PRN Insomnia, X 5 day, # 5 tab, 0 Refill(s) methocarbamol 500 mg oral tablet, 1,000 mg = 2 tab, PO, Q8H, X 5 day, # 30 tab, 0 Refill(s) oxyCODONE 20 mg oral tablet, extended r elease, 20 mg = 1 tab, PO, Q12H, # 14 tab, 0 Refill(s), given to patient tamsulosin 0.4 mg oral capsule, 0.4 mg = 1 cap, PO, After Dinner, # 14 cap, 0 Refill(s) Follow up given with Urology, Neurosurgery and PCP at the [facility] . Extracted from:Title: [facility]MS Consult Note Author: Arjun Lyons MD Date: 10/07/15 Patient: ANKUR ANGELES Age: 54 years Sex: Male : 1960 Associated Diagnoses: None Author: Arjun Lyons MD Basic Information Referral source Reason for consultation: Complex Acute Pain Chief Complaint acute on chronic backpain s/p fall History of Present Illness Patient is a 54 yo M with hx of ulcerati ve colitis (s/p ileostomy) and chronic back pain s/p fall from standing height with a L2/L3 disc herniation causing mild spinal canal stenosis w/o sig neural comp ression, chronic L2 compression fx, and recent L4-5 [facility] at the [facility] on 09[facility]. [facility] has been consulted for transition to PO regimen on patient with hx of acute on chronic back pain with narcotic usage. Patient seen at bedside. Patient resting comfortably and appearing comfortable, in no acute distress, and eating lunch when [facility] entered room. Patient described back pain and hip pain as a burning type pain that radiates into legs bilaterally extending to the knees. Pain occurs at rest and is constant. Patient fills medications at [facility]. Histories Past Medical History: Resolved Back pain ([id number]): Resolved. UC (ulcerative colitis) ([id number]): Resolved. PTSD (post-traumatic stress disorder) ([id number]): Resolved. Family History: Cataract Mother Diabetes mellitus Mother Heart attack Brother Procedure history: Lumbar spinal fusion ([id number]). Comments: 10/03/2015 17:50 - Phong Brown RN L4-L5 Ileostomy ([id number]). Social History Social and Psychosocial Habits Tobacco 10/04/2015 Use: Current every day smoker Type: Cigarettes Ready to change: No Concerns about tobacco use in household: No Exposure to Tobacco Smoke None Cigarette Smoking Last 365 Days No Reg Smoking Cessation Counseling No . Health Status Allergies: Allergic Reactions (All) Severity Not Documented NKDA- No reactions were documented., Allergies (1) Active Reaction NKDA None Documented Current medications: (Selected) Inpatient Medications Ordered Bentyl: 20 mg, 1 tab, PO, QID Dilaudid: 4 mg, 2 tab, PO, Q4H, PRN: Pain Score 4-6 Dilaudid: 8 mg, 4 tab, PO, Q4H, PRN: Pain Score 7-10 Flomax: 0.4 mg, 1 cap, PO, After Dinner Lidoderm 5% topical film (patch): 1 patch, TOP, Q24H acetaminophen: 1,000 mg, 2 tab, PO, Q6Hnow gabapentin: 600 mg, 2 cap, PO, Q8Hnow heparin 5000 units/mL injectable solution: 5,000 unit, 1 mL, SUB-Q, Q8H melatonin: 3 mg, 1 tab, PO, Bedtime, PRN: Insomnia methocarbamol: 1,000 mg, 2 tab, PO, Q8H naproxen: 500 mg, 1 tab, PO, [id number] oxyCONTIN: 20 mg, 1 tab, PO, Q12H promethazine: 12.5 mg, 1 tab, PO, Q4H, PRN: Nausea and Vomit ing tramadol: 100 mg, 2 tab, PO, Q6Hnow Documented Medications Documented Dilaudid 8 mg oral tablet: 8 mg, 1 tab, PO, Q6H, for 7 day, PRN: Pain, 0 Refill(s) oxyCODONE 20 mg oral tablet, extended re lease: 20 mg, 1 tab, PO, Q12H, for 7 day, 0 Refill(s), Medications (14) Active Scheduled: (10) acetaminophen 500 mg TAB 1,000 mg 2 tab, PO, Q6Hnow dicyclomine 20 mg TAB 20 mg 1 tab, PO, QID gabapentin 300 mg CAP 600 mg 2 cap, PO, Q8Hnow heparin 5000 unit/1 ml INJ VL 5,000 unit 1 mL, SUB-Q, Q8H lidocaine 5% top patch 1 patch, TOP, Q24H methocarbamol 500 mg TAB 1,000 mg 2 tab, PO, Q8H naproxen 500 mg TAB 500 mg 1 tab, PO, [id number] oxyCODONE 20 mg ERT 20 mg 1 tab, PO, Q12H tamsulosin 0.4 mg CAP 0.4 mg 1 cap, PO, After Dinner traMADol 50 mg TAB 100 mg 2 tab, PO, Q6Hnow Continuous: (0) PRN: (4) HYDROmorphone 2 mg TAB 8 mg 4 tab, PO, Q4H HYDROmorphone 2 mg TAB 4 mg 2 tab, PO, Q4H melatonin 3 mg TAB 3 mg 1 tab, PO, Bedtime promethazine 12.5 mg TAB 12.5 mg 1 tab, PO, Q4H Problem list: No qualifying data available Review of Systems Constitutional: Negative except as documented in history of present illness. Cardiovascular: Negative except as documented in history of present illness. Ear/Nose/Mouth/Throat: Negative except as documented in history of present illness. Respiratory: Negative except as documented in history of pr esent illness. Gastrointestinal: Negative except as documented in hi story of present illness. Musculoskeletal: Muscle pain, Decreased range of motion, Tr auma. Back pain: In the lower region, The pain is moderate, R adiating. Neurologic: Negative except as documented in history of pre sent illness. Psychiatric: Negative except as documented in history of pr esent illness. Endocrine: Negative except as documented in history of pres ent illness. Hematology/Lymphatics: Negative except as documented in history of present illness. Physical Examination VS/Measurements Vital Signs (last 24 hrs) Last Charted _ Temp Oral 98.2 DegF (OCT 06 12:20) Heart Rate Peripheral 75 bpm (OCT 06 12:20) Resp Rate 18 BRMIN (OCT 06 12:20) SBP 122 mmHg (OCT 06:) DBP 76 mmHg (OCT 06:) SpO2 96 % (OCT 06 12:) General: Alert and oriented, Mild distress. Eye: Pupils are equal, round and reacti ve to light, Extraocular movements are intact. HENT: Normocephalic. Neck: No jugular venous distention. Respiratory: Respirations are non-labored, Symmetrical ches t wall expansion. Cardiovascular: Normal peripheral perfusion. Gastrointestinal: Non-distended. Musculoskeletal Decreased ROM LUE. LUE in sling. Integumentary: Warm, Dry. Neurologic: Alert, Oriented. Cognition and Speech: Oriented, Speech clear and coherent. Psychiatric: Cooperative, Appropriate mood and affect. Review / Management Results review: Labs (Last four charted values) WBC 5.2 (OCT 04) 7.6 (OCT 02) Hgb L 10.8 (OCT 04) L 10.8 (OCT 02) Hct L 31.6 (OCT 04) L 31.6 (OCT 02) Plt 230 (OCT 04) 235 (OCT 02) Na 140 (OCT 06) 139 (OCT 04) 137 (OCT 02) K 3.9 (OCT 06) 4.0 (OCT 04) 3.7 (OCT 02) CO2 25 (OCT 06) L 23 (OCT 04) L 21 (OCT 02) Cl 106 (OCT 06) 108 (OCT 04) 103 (OCT 02) Cr 1.04 (OCT 06) 0.91 (OCT 04) 1.00 (OCT 02) BUN 8 (OCT 06) 9 (OCT 04) 7 (OCT 02) Glucose Random H 117 (OCT 06) 87 (OCT 04) 91 (OCT 02) Mg L 1.7 (OCT 04) Phos 4.1 (OCT 04) Ca L 8.2 (OCT 06) 8.5 (A ) 8.8 (OCT 02) PT 13.5 (OCT 04) 13.6 (OCT 02) INR 1.00 (OCT 04) 1.01 (OCT 02) PTT 32.3 (OCT 04) H 36.5 (SEP 07 7) . Chest x-ray results ECG interpretation Impression and Plan Diagnosis Orders Education and Follow-up: Counseled : Regarding treatment, Regarding medications. Patient is a 54 yo M with hx of ulcerat jj colitis (s/p ileostomy) and chronic back pain s/p fall from standing height with a L2/L3 disc herniation causing mild spinal canal stenosis w/o sig neural com pression, chronic L2 compression fx, and recent L4-5 [facility]IF at the [facility] on 09/14/15. [facility] has been consulted for transition to PO regimen on patient with hx of acute on chronic back pain with narcotic usage. - DC morphine IV - DC oxycodone 5mg PRN - Schedule methocarbamol 1,000 mg PO Q8H - Continue acetaminophen 1,000 mg PO Q6H - Increase gabapentin to 600 mg PO Q8H - Continue oxyCODONE (oxyCONTIN) 20 mg PO Q12H - Continue tramadol 100 mg PO Q6H - Add hydromorphone (Dilaudid) 4-8 mg PO Q4H PRN breakthroug h pain overnight [facility] will follow. Please call [phone] for further questions. Arjun Lyons MD PGY3 Anesthesiolgy Addendum by Abraham Davis MD on 10/09/2015 07:12 TEACHING PHYSICIAN ADDENDUM: I saw and p ersonally examined this patient and discussed the plan of care with this resident. I have reviewed the note below and agree with the history, examination findings and the plan of care. Extracted from:Title: Hospitalist History and Physical Author: Juan Monroe MD Date: 10/04/15 Assessment/Plan 1.Cauda equina syndrome s/p fall, ORS spine to eval for surgery vs. non-op mgt 2.Fusion of lumbar spine s/pPSIF 1 monthago, repair stable onMRI 3.Acute pain multi-modal oral analgesia 4.Colitis, ulcerative s/p ileostomy, recent diarrhea with Hx of dehydration 2/2 high output - D51/2NS at 125ml/h Orders: acetaminophen, 1,000 mg, Route: PO, Q6Hn ow, Dosing Weight 104.545, kg, Start date: 10/04/15 6:00:00 CDT, Duration: 30 day, Stop date: 11/03/15 0:00:00 CDT Dextrose 5% with 0.45% NaCl IV 1000 m L, 1,000 mL, Rate: 125 ml/hr, Infuse over: 8 hr, Route: IV, Dosing Weight 104.545 kg, Total Volume: 1,000, Start date: 10/04/15 5:16:00 CDT, Duration: 30 day, Stop date: 11/03/15 5:15:00 CDT gabapentin, 300 mg, Route: PO, Q8Hnow , Dosing Weight 104.545, kg, Start date: 10/04/15 6:00:00 CDT, Duration: 30 day, Stop date: 11/02/15 22:00:00 CDT Lidoderm 5% topical film (patch), 1 p atch, Route: TOP, Q24H, Start date: 10/04/15 6:00:00 CDT, Duration: 30 day, Stop date: 11/02/15 6:00:00 CDT melatonin, 3 mg, Route: PO, Bedtime, Dosing Weight 104.545, kg, PRN Insomnia, Start date: 10/04/15 5:13:00 CDT, Duration: 30 day, Stop date: 11/03/15 5:12:00 CDT methocarbamol, 1,000 mg, Route: PO, D rug form: TAB, Q8H, Dosing Weight 104.545, kg, PRN Muscle Spasms, Start date: 10/04/15 5:13:00 CDT, Duration: 30 day, Stop date: 11/03/15 5:12:00 CDT naproxen, 500 mg, Route: PO, [id number], Dosing Weight 104.545, kg, Start date: 10/04/15 6:00:00 CDT, Duration: 30 day, Stop date: 11/02/15 18:00:00 CDT oxyCODONE 5 mg immediate release, 10 mg, Route: PO, Drug form: TAB, Q4H, Dosing Weight 104.545, kg, PRN Pain Score 7-10, Start date: 10/04/15 5:13:00 CDT, Duration: 30 day, Stop date: 11/03/15 5:12:00 CDT oxyCODONE 5 mg immediate release, 5 m g, Route: PO, Drug form: TAB, Q4H, Dosing Weight 104.545, kg, PRN Pain Score 4-6, Start date: 10/04/15 5:13:00 CDT, Duration: 30 day, Stop date: 11/03/15 5:12:00 CDT promethazine, 12.5 mg, Route: PO, Q4H , Dosing Weight 104.545, kg, PRN Nausea and Vomiting, Start date: 10/04/15 5:13:00 CDT, Duration: 30 day, Stop date: 11/03/15 5:12:00 CDT tramadol, 100 mg, Route: PO, Drug for m: TAB, Q6Hnow, Dosing Weight 104.545, kg, Start date: 10/04/15 6:00:00 CDT, Duration: 30 day, Stop date: 11/03/15 0:00:00 CDT Ambulation Up ad aaron Basic Metabolic Panel CDM Acute Pain/Anxiolytic Orders CDM Admission Acute Care Post ED Complete Blood Count w/ Diff and Platelet Diet NPO Magnesium Level Notify MD Notify MD Notify MD Provide Education AC4 Patient Education AC4 Phosphorus Level Prothrombin Time and Partial Thromboplastin Time Pulse Oximetry Spot Check by Nurse Resuscitation (Code) Status SCD Application UA with culture if indicated Vital Signs Prophylaxis heparin Disposition pending decision on surgery KUMAR [id number] Plan of Care No Data Provided for This Section Social History Social History Date Source Social History TypeResponse 07/06/2016 [place] [facility] Current Smoking Status Current every day smoker; Type: Cigarett es; Ready to change: No; Concerns about tobacco use in household: No; Exposure to Tobacco Smoke None; Cigarette Smoking Last 365 Days Yes; Reg Smoking Cessation Counseling No Social History TypeResponse 10/15/2015 [facility] Smoking Status Current every day smoker; Type: Cigarett es; Ready to change: No; Concerns about tobacco use in household: No; Exposure to Tobacco Smoke None; Cigarette Smoking Last 365 Days No; Reg Smoking Cessation Counseling No Family History No Data Provided for This Section Advance Directives No Data Provided for This Section Functional Status No Data Provided for This Section
[2019-08-13 11:28] LABS: Sodium Level 119 mmol/L (136-145)
--- OUTSIDE RECORDS SUMMARY | 2019-08-13 11:32 | XMS REPORT | Continuity of Care Document ---
:1960 Author Organization [facility] t Address [address] [place] [address] Care Team Providers Name Role Phone Asked, Pcp Primary Care Physician Unavailable Albright Attending Clinician Mirna Gallegos Attending Clinician iLsy Ba Attending Clinician Alexia Attending Clinician Tato Rosenbaum Attending Clinician Albright Admitting Clinician Kurt Hopper Admitting Clinician Payers Payer Name Policy Type Policy Number Effective Date Expiration Date S ource Problems Condition Condition Condition Status Onset Resolution Last Treating Co mments Source Name Details Category Date Date Treatment Clinician Date ETOH Diagnosis Active 2016-07-14 Mem oria 07-14 21:24:00 l ETOH 00:00: [place] 00 Active 07/14/2016 [facility] ACUTE Diagnosis Active 2016-07-30 Mem oria ALCOHOL 07-14 21:38:00 l INTOXICATI ACUTE 00:00: Jaylene nn ON, ALCOHOL 00 DEHYDRATIO INTOXICATI N, ON, DEHYDRATIO N, Active 7 [facility] ACUTE Diagnosis Active 2016-07-06 Mem oria ALCOHOL 07-05 15:14:00 l INTOXICATI ACUTE 00:00: Jaylene nn ON ALCOHOL 00 INTOXICATI ON Active 7 [facility] LAC Diagnosis Active 2016-07-05 Mem oria 30 19:15:00 l LAC 00:00: [place] 00 Active 07/05/2016 [facility] BACK PAIN Diagnosis Active 2015-10-15 Memoria 9-08 14:28:00 l BACK 00:00: [place] PAIN 00 Active 10/15/2015 [facility] URINARY Diagnosis Active 2015-10-15 Me moria RETENTION 10-02 10:03:00 l CONCERN URINARY 00:00: Juan n FOR CAUDA RETENTION 00 EQUI CONCERN FOR CAUDA EQUI Active 10/03/2015 [facility] Backache Problem Active 2016-07-18 Mem oria (finding) 03:06:22 l Backache Juan n (finding) Active Problem 07/18/2016 [facility] Coronary Problem Active 2016-07-18 Mem oria arterioscl 03:06:22 l erosis Coronary Juan n (disorder) arterioscl erosis (disorder) Active Problem 07/18/2016 [facility] Hypertensi Problem Active 2016-07-18 M emoria ve 03:06:22 l disorder, [place] systemic Hypertensi arterial ve (disorder) disorder, systemic arterial (disorder) Active Problem 07/18/2016 [facility] Irritable Problem Active 2016-07-18 Me moria colon 03:06:22 l (disorder) Juan n Irritable colon (disorder) Active Problem 07/18/2016 [facility] Posttrauma Problem Active 2016-07-18 M emoria tic stress 03:06:22 l disorder [place] (disorder) Posttrauma tic stress disorder (disorder) Active Problem 07/18/2016 [facility] Ulcerative Problem Active 2016-07-18 M emoria colitis 03:06:22 l (disorder) Juan n Ulcerative colitis (disorder) Active Problem 07/18/2016 [facility] RETENTION Diagnosis Active 2015-10-15 Memoria OF URINE, 10:03:00 l UNSPECIFIE Juan n D RETENTION OF URINE, UNSPECIFIE D Active [facility] Alcohol Problem 2016-07-09 2016-07-09 Memoria abuse with 5-30 03:00:43 03:00:43 l intoxicati Alcohol 05:00: Her montero on, abuse with 00 unspecifie intoxicati d on, unspecifie d 07/05/2016 07/09/2016 [facility] Laceration Problem 2016-2016-07-09 2016-07-09 Memoria without 5-30 03:00:43 03:00:43 l foreign 05:00: [place] body of Laceration 00 scalp, without initial foreign encounter body of scalp, initial encounter 07/05/2016 07/09/2016 [facility] Discharge Problem 2015-10-18 2015-10-18 Memoria Diagnosis: 10-14 03:16:54 03:16:54 l Back 05:00: [place] strain Discharge 00 Diagnosis: Back strain 10/15/2015 10/18/2015 [facility] Discharge Problem 2015-10-18 2015-10-18 Memoria Diagnosis: 10-14 03:16:54 03:16:54 l Chronic 05:00: [place] low back Discharge 00 pain Diagnosis: Chronic low back pain 10/15/2015 10/18/2015 [facility] Allergies, Adverse Reactions, Alerts Allergy Allergy Status Severity Reaction(s) Onset Inactive Treating Comm ents Source Name Type Date Date Clinician No Known DA Active U 2018- [facility] [place] 00:[facility]: [address] No Known DA Active U [facility] [place] 00:[facility]: [address] Social History Social Habit Start Date Stop Date Quantity Comments Source Sex Assigned At [facility] Social History 2016-07-06 2016-07-06 Geremias Vamsi vadim 02:35:32 02:35:32 Alcohol intake 2015-10-10 2015-10-10 Current [facility] 00:00:00 00:00:00 non-drinker of alcohol (finding) Smoking Status Start Date Stop Date Source Social History 2015-10-15 17:30:06 Geremias Her montero Current some day smoker 2015-10-10 00:00:00 [facility] Medications Ordered Filled Start Stop Current Ordering Indication Dosage Frequency Signature Comments Components Source Medication Medication Date Date Medication? Clinician (SIG) Name Name Faisal No Notes: Memoria 6-10 (Same As: l 01:00: [place]). Use with 100 mL NS and infuse over 30 min MEDICATION WASTE Product Size: 1000 mg Product Wasted: ___ mg thiamine Yes 100 mg = 1 Mem oria 100 mg oral 6-09 tab, PO, l tablet 16:28: Daily, X [place] 00 10 day, # 10 tab, 0 Refill(s) Folic Acid Yes 1 mg = 1 Mem oria 1 MG Oral 6-09 tab, PO, l Tablet 16:28: Daily, # [place] 00 30 tab, 0 Refill(s) Multiple Yes 1 tab, PO, Mem oria Vitamins 6-09 Daily, # l oral tablet 16:07: 30 tab, 0 H [place] 00 Refill(s) multivitami No Notes: Isidro venita n 07-15 (Same l 14:00: as:Thera) WASTE: F/P - Black; E - Municipal Trash Bin Take with food. Thiamine No Notes: Memoria 07-15 (Same As: l 14:00: Vitamin B1) Lyrica No Notes: Memoria 07-15 (Same as: l 14:00: Lyrica) Prilosec No 40 mg, Memoria 07-15 Route: PO, l 14:00: Drug form: DRC, Daily, Dosing Weight 79.545, kg, Start date: 07/15/16 9:00:00 CDT, Duration: 30 day, Stop date: 08/13/16 9:00:00 CDT Lopressor No Notes: Memori a 07-15 (Same as: l 14:00: Lopressor) Protonix No Notes: Memoria - Tablet l 14:00: should not be chewed or crushed. (Same as: Protonix) tamsulosin No Notes: Memor ia 07-15 (Same As: l 13:30: Flomax) "Do Not Crush" Sodium No 1,000 mL, Memori a Chloride 07-15 Rate: 125 l 0.154 03:11: ml/hr, [place] MEQ/ML 00 Infuse Injectable over: 8.1 Solution hr, Route: IV, Dosing Weight 79.545 kg, Total Volume: 1,011.2, Start date: 07/14/16 22:11:00 CDT, Duration: 3 day, Stop date: 07/17/16 22:10:00 CDT Lorazepam No Notes: Memori a 07-15 (Same as: l 02:34: Ativan) Ondansetron No Notes: Isidro venita 07-15 (Same as: l 02:33: Zofran) MEDICATION WASTE Product Size: 4 mg Product Wasted: ___ mg Ceftriaxone No Notes: Isidro venita 07-15 (Same As: l 00:49: Rocephin). Use with 100 mL NS and infuse over 30 min MEDICATION WASTE Product Size: 1000 mg Product Wasted: ___ mg Ativan No Notes: Memoria - (Same as: l 23:29: Ativan) Sodium No 500 mL, Memoria Chloride 07-14 500 ml/hr, l 0.154 23:11: Infuse [place] MEQ/ML 00 Over: 1 Injectable hr, Route: Solution IV, 500, Drug form: INJ, ONCE, Priority: STAT, Dosing Weight 79.545 kg, Start date: 07/14/16 18:11:00 CDT, Duration: 1 doses or times, Stop date: 07/14/16 18:11:00 CDT Saline No Notes: Memoria Flush 0.9% 07-14 (Same as: l 23:10: BD Posiflush) Docusate No Notes: Memoria 5-31 (Same as: l 14:00: Colace) (Do Not Crush) Acetaminoph Yes 1 tab, PO, Memoria en 325 MG / 5-31 Q6H, PRN l Hydrocodone 02:36: Pain Score [place] Bitartrate 00 4-6, 0 5 MG Oral Refill(s) Tablet pregabalin Yes 75 mg = 1 Me moria 75 MG Oral 5-31 cap, PO, l Capsule 02:36: TID, 0 [place] [Lyrica] 00 Refill(s) metoprolol Yes 50 mg = 1 Me moria tartrate 50 5-31 tab, PO, l mg oral 02:36: Daily, 0 Juan n tablet 00 Refill(s) loperamide Yes 2 mg = 1 Mem oria 2 mg oral 5-31 tab, PO, l tablet 02:36: QID, PRN [place] 00 Loose Stools, # 60 tab, 0 Refill(s) Omeprazole Yes 40 mg = 1 Me moria 40 MG 5-31 cap, PO, l Enteric 02:36: Daily, 0 Juan n Coated 00 Refill(s) Capsule [Prilosec] tamsulosin Yes 0.4 mg = 1 M emoria 0.4 mg oral 5-31 cap, PO, l capsule 02:36: BID, 0 [place] 00 Refill(s) Ativan No Notes: Memoria 5-31 (Same as: l 01:20: Ativan) [place] 00 Sodium No 1,000 mL, Memori a Chloride 07-06 Rate: 100 l 0.154 01:19: ml/hr, MEQ/ML 00 Infuse Injectable over: 10.1 Solution hr, Route: IV, Dosing Weight 127.273 kg, Total Volume: 1,011.2, Start date: 07/05/16 20:19:00 CDT, Duration: 3 day, Stop date: 07/08/16 20:18:00 CDT Ondansetron No Notes: Isidro venita - (Same as: l 01:16: Zofran) [place] 00 MEDICATION WASTE Product Size: 4 mg Product Wasted: ___ mg Acetaminoph No Notes: Do M emoria en - not exceed l 01:16: 4 gm/day. Nawaf (Same as: Tylenol) Morphine No Notes: Memoria 5-31 (Same l 01:16: as:MORPhin [place] 00 e Sulfate) Sodium No 250 mL, Memoria Chloride 07-05 Route: l 0.9% IV 21:50: IVPB, [place] 00 Start date: 07/05/16 16:50:00 CDT, Duration: 30 day, Stop date: 08/04/16 16:49:00 CDT, PRN Line Flush Sodium No 1,000 mL, Memori a Chloride 5-30 Rate: l 0.154 21:41: 1,000 [place] MEQ/ML 00 ml/hr, Injectable Infuse Solution over: 1 hr, Route: IV, Dosing Weight 127.273 kg, Total Volume: 1,000, Start date: 07/05/16 16:41:00 CDT, Duration: 1 doses or times, Stop date: 07/05/16 17:40:00 CDT LET topical No Notes: For Memoria 5-30 topical l 19:51: use only - [place] 00 Lidocain- epinephrin e-tetracai ne 1.5 ml top GEL. (Same as: Adrenalin- Xylocaine- Tetracaine ) Sodium No 1,000 mL, Memori a Chloride 5-30 Rate: l 0.154 17:17: 1,000 [place] MEQ/ML 00 ml/hr, Injectable Infuse Solution over: 1 hr, Route: IV, Dosing Weight 127.273 kg, Total Volume: 1,000, Start date: 07/05/16 12:17:00 CDT, Duration: 1 doses or times, Stop date: 07/05/16 13:16:00 CDT Saline No Notes: Memoria Flush 0.9% -30 (Same as: l 17:09: BD [place] 00 Posiflush) HYDROcodone Yes Midline low 1{tbl} Take 1 Jimenez -acetaminop 10-15 back pain tablet by [facility]) 00:00: without mouth 5-325 mg 00 sciatica, every 6 tablet unspecified hours as chronicity needed for Pain. tramadol Yes 50 mg = 1 Isidro venita hydrochlori 10-14 tab, PO, l de 50 MG 19:32: Q8H, PRN Jaylene nn Oral Tablet 00 Pain, X 5 day, # 15 tab, 0 Refill(s) Tramadol No Notes: Not Mem oria 10-14 to exceed l 18:57: 400mg/day. [place] 00 (Same As: Ultram) Tylenol No Notes: Do Memor ia 10-14 not exceed l 17:54: 4 gm/day. (Same as: Tylenol) Diazepam Yes 0 Memoria 10-14 Refill(s) l 17:27: Lisinopril Yes PO, Daily, M emoria 10-14 0 l 17:27: Refill(s) Imodium A-D Yes 2 mg, 0 Mem oria 10-14 Refill(s) l 17:27: Omeprazole Yes PO, Daily, M emoria 10-14 0 l 17:27: Refill(s) Hydromorpho Yes 4 mg = 1 Me moria ne 10-07 tab, PO, l Hydrochlori 20:20: Q4H, PRN He rmann de 4 MG 00 Pain, X 7 Oral Tablet day, # 42 [Dilaudid] tab, 0 Refill(s), given to patient oxyCODONE Yes 20 mg = 1 Mem oria 20 mg oral 10-07 tab, PO, l tablet, 20:18: Q12H, # 14 Herm clemencia extended 00 tab, 0 release Refill(s), given to patient methocarbam Yes 1,000 mg = Memoria ol 500 mg 10-07 2 tab, PO, l oral tablet 19:06: Q8H, X 5 He rmann 00 day, # 30 tab, 0 Refill(s) tamsulosin Yes 0.4 mg = 1 M emoria 0.4 mg oral 10-07 cap, PO, l capsule 19:06: After Dinner, # 14 cap, 0 Refill(s) melatonin 3 Yes 3 mg = 1 Me moria mg oral 10-07 tab, PO, l tablet 19:06: Bedtime, PRN Insomnia, X 5 day, # 5 tab, 0 Refill(s) gabapentin Yes 600 mg = 2 M emoria 300 MG Oral 10-07 cap, PO, l Capsule 19:06: Q8Hnow, # Jaylene nn 00 30 cap, 0 Refill(s) dicyclomine Yes 20 mg = 1 M emoria 20 mg oral 10-07 tab, PO, l tablet 19:06: QID, # 28 Juan n 00 tab, 0 Refill(s) acetaminoph Yes 1,000 mg = Memoria en 500 mg 10-07 2 tab, PO, l oral tablet 19:06: Q6Hnow, X H ermann 00 5 day, # 40 tab, 0 Refill(s) Valium No Notes: Memoria 10-07 (Same as: l 10:31: Valium) Valium No Notes: Memoria 10-07 (Same as: l 01:25: Valium) Dilaudid No Notes: Memoria 10-06 (Same as: l 18:03: Dilaudid) Dilaudid No Notes: Memoria 10-06 (Same as: l 18:01: Dilaudid) Calcium No 500 mg, 1 Memor ia Gluconate 10-06 tab, l 500 MG Oral 17:57: Route: PO, [place] Tablet 00 Drug form: TAB, ONCE, Dosing Weight 104.545, kg, Start date: 10/07/15 12:57:00 CDT, Stop date: 10/07/15 12:57:00 CDT Bentyl No Notes: Memoria 10-06 (Same as: l 17:00: Bentyl) D5W 1/2NS No 1,000 mL, Mem oria 1000 mL 10-06 Rate: 125 l 16:58: ml/hr, Infuse over: 8 hr, Route: IV, Dosing Weight 104.545 kg, Total Volume: 1,000, Start date: 10/07/15 11:58:00 CDT, Duration: 30 day, Stop date: 11/06/15 11:57:00 CDT Bentyl No Notes: Memoria 8- (Same as: l 23:00: Bentyl) Flomax No Notes: Memoria 8-30 (Same As: l 22:00: Flomax) "Do Not Crush" Morphine No Notes: Memoria 8- (Same l 09:37: as:MORPhin [place] 00 e Sulfate) Morphine No Notes: Memoria 10-05 (Same l 06:35: as:MORPhin [place] 00 e Sulfate) Oxycontin No Notes: Do Mem oria 10-05 not crush l 02:00: or chew. [place] 00 (Same as: OxyContin) Morphine No Notes: Memoria 10-05 (Same l 00:54: as:MORPhin [place] 00 e Sulfate) heparin No Notes: Memoria sodium, 10-04 porcine l porcine 23:41: heparin [place] 2500 UNT/ML 00 Injectable Solution Acetaminoph No Notes: Do M emoria en 325 MG / 10-04 not exceed l Oxycodone 19:10: 4gm/day of He rmann Hydrochlori 00 acetaminop de 10 MG hen. Oral Tablet (Same as: [Percocet Percocet-1 10/325] 0/325) oxyCODONE No 20 mg = 1 Mem oria 20 mg oral 10-03 tab, PO, l tablet, 23:08: Q12H, 0 [place] extended 00 Refill(s) release Hydromorpho No 8 mg = 1 Me moria ne 10-03 tab, PO, l Hydrochlori 23:08: Q6H, PRN He rmann de 8 MG 00 Pain, 0 Oral Tablet Refill(s) [Dilaudid] Naproxen No Notes: Memoria 10-03 (Same as: l 11:00: Naprosyn) [place] 00 Take with food. Acetaminoph No Notes: Max Memoria en 10-03 acetaminop l 11:00: hen 4000 [place] 00 mg/day (4 gm/day). (Same as: Tylenol Extra Strength) Tramadol No Notes: Not Mem oria 10-03 to exceed l 11:00: 400mg/day. [place] 00 (Same As: Ultram) gabapentin No Notes: Memor ia 10-03 (Same as: l 11:00: Neurontin) [place] 00 Lidocaine No Notes: Memori a Hydrochlori 10-03 Apply only l de 0.05 11:00: once for Juan n MG/MG 00 up to 12 Transdermal hours in a Patch 24-hour [Lidoderm] period (12 hours on and 12 hours off). (Same as: Lidoderm) "Remove old patch before applicatio n of new patch" D5W 1/2NS No 1,000 mL, Mem oria 1,000 mL 10-03 Rate: 125 l 10:16: ml/hr, [place] 00 Infuse over: 8 hr, Route: IV, Dosing Weight 104.545 kg, Total Volume: 1,000, Start date: 10/04/15 5:16:00 CDT, Duration: 30 day, Stop date: 11/03/15 5:15:00 CDT Methocarbam No Notes: Isidro venita ol 10-03 (Same l 10:13: as:Robaxin [place] ) Oxycodone No Notes: Memori a Hydrochlori 10-03 (Same as: l de 5 MG 10:13: Roxicodone Herm clemencia Oral Tablet ) Promethazin No Notes: Isidro venita e 10-03 (Same as: l 10:13: Phenergan) Melatonin No Notes: Memori a 10-03 (Same as: l 10:13: Melatonin) Hydromorpho No Notes: Isidro venita ne 10-03 Same as: l 07:01: Dilaudid [place] 00 Ativan No Notes: Memoria 10-03 (Same as: l 04:33: Ativan) [place] 00 Morphine No Notes: Memoria 10-03 (Same l 02:46: as:MORPhin [place] 00 e Sulfate) Ondansetron No Notes: Isidro venita 10-03 (Same as: l 02:46: Zofran) [place] 00 MEDICATION WASTE Product Size: 4 mg Product Wasted: ___ mg Acetaminoph No 1 tab, Isidro venita en 325 MG / 10-03 Route: PO, l Hydrocodone 01:06: Drug Form: [place] Bitartrate 00 TAB, 5 MG Oral Dosing Tablet Weight 104.545, kg, ONCE, STAT, Start date: 10/03/15 20:06:00 CDT, Stop date: 10/03/15 20:06:00 CDT Sodium No 1,000 mL, Memori a Chloride 10-02 2,000 l 0.154 23:29: ml/hr, [place] MEQ/ML 00 Infuse Injectable Over: 30 Solution minutes, Route: IV, 1,000, Drug form: INJ, ONCE, Priority: STAT, Dosing Weight 104.545 kg, Start date: 10/03/15 18:29:00 CDT, Duration: 1 doses or times, Stop date: 10/03/15 18:29:00 CDT Ondansetron No Notes: Isidro venita 10-02 (Same as: l 23:06: Zofran) [place] 00 MEDICATION WASTE Product Size: 4 mg Product Wasted: 0 mg Morphine No Notes: Memoria 10-02 (Same l 23:06: as:MORPhin [place] 00 e Sulfate) Vital Signs Vital Name Observation Time Observation Value Comments Source Heart Rate 2016-07-15 12:06:00 [facility] [place] Temperature Oral (F) 2016-07-15 12:06:00 98.3 F [facility] [place] Systolic (mm Hg) 2016-07-15 12:06:00 Isidro rial [place] Diastolic (mm Hg) 2016-07-15 12:06:00 Mem orial [place] Respitory Rate 2016-07-15 12:06:00 Memori al [place] Weight 2016-07-15 10:42:00 [facility] [place] BMI Calculated 2016-07-15 10:42:00 Memori al [place] Height 2016-07-15 10:42:00 177.8 cm [facility] [place] Temperature Oral (F) 2016-07-15 09:09:00 98.4 F [facility] [place] Systolic (mm Hg) 2016-07-15 09:09:00 Isidro rial [place] Diastolic (mm Hg) 2016-07-15 09:09:00 Mem orial [place] Respitory Rate 2016-07-15 09:09:00 Memori al [place] Heart Rate 2016-07-15 09:09:00 [facility] [place] Temperature Oral (F) 2016-07-15 05:39:00 98 F [facility] [place] Respitory Rate 2016-07-15 05:39:00 Memori al [place] Heart Rate 2016-07-15 05:39:00 [facility] [place] Systolic (mm Hg) 2016-07-15 05:39:00 Isidro rial [place] Diastolic (mm Hg) 2016-07-15 05:39:00 Mem orial [place] Height 2016-07-15 04:05:00 177.8 cm [facility] [place] BMI Calculated 2016-07-15 04:05:00 Memori al [place] Weight 2016-07-15 04:05:00 [facility] [place] BMI Calculated 2016-07-14 22:53:00 Memori al [place] Weight 2016-07-14 22:53:00 [facility] [place] Height 2016-07-14 22:53:00 182.88 cm [facility] [place] Respitory Rate 2016-07-06 12:39:00 Memori al [place] Systolic (mm Hg) 2016-07-06 12:39:00 Isidro rial [place] Diastolic (mm Hg) 2016-07-06 12:39:00 Mem orial [place] Heart Rate 2016-07-06 12:39:00 [facility] [place] Temperature Oral (F) 2016-07-06 12:39:00 98 F [facility] [place] Systolic (mm Hg) 2016-07-06 09:46:00 Isidro rial [place] Diastolic (mm Hg) 2016-07-06 09:46:00 Mem orial [place] Heart Rate 2016-07-06 09:46:00 [facility] [place] Respitory Rate 2016-07-06 09:46:00 Memori al [place] Temperature Oral (F) 2016-07-06 09:46:00 97.8 F [facility] [place] Temperature Oral (F) 2016-07-06 05:13:00 98.1 F [facility] [place] Heart Rate 2016-07-06 05:13:00 [facility] [place] Systolic (mm Hg) 2016-07-06 05:13:00 Isidro rial [place] Diastolic (mm Hg) 2016-07-06 05:13:00 Mem orial [place] Respitory Rate 2016-07-06 05:13:00 Memori al [place] Height 2016-07-06 02:18:00 175.26 cm [facility] [place] BMI Calculated 2016-07-06 02:14:00 Memori al [place] Weight 2016-07-06 02:14:00 [facility] [place] Height 2016-07-06 02:14:00 172.72 cm [facility] [place] BMI Calculated 2016-07-05 17:05:00 Memori al [place] Weight 2016-07-05 17:05:00 [facility] [place] Height 2016-07-05 17:05:00 182.8 cm [facility] [place] Respitory Rate 2015-10-15 19:39:00 Memori al [place] Heart Rate 2015-10-15 19:39:00 [facility] [place] Systolic (mm Hg) 2015-10-15 19:39:00 Isidro rial [place] Diastolic (mm Hg) 2015-10-15 19:39:00 Mem orial [place] Height 2015-10-15 16:52:00 175.26 cm [facility] [place] BMI Calculated 2015-10-15 16:52:00 Memori al [place] Weight 2015-10-15 16:52:00 [facility] [place] Respitory Rate 2015-10-15 16:52:00 Memori al [place] Heart Rate 2015-10-15 16:52:00 [facility] [place] Temperature Oral (F) 2015-10-15 16:52:00 98.1 F [facility] [place] Systolic (mm Hg) 2015-10-15 16:52:00 Isidro rial [place] Diastolic (mm Hg) 2015-10-15 16:52:00 Mem orial [place] Systolic (mm Hg) 2015-10-08 17:09:00 Isidro rial [place] Diastolic (mm Hg) 2015-10-08 17:09:00 Mem orial [place] Heart Rate 2015-10-08 17:09:00 [facility] [place] Respitory Rate 2015-10-08 17:09:00 Memori al [place] Temperature Oral (F) 2015-10-08 17:09:00 97.9 F [facility] [place] Respitory Rate 2015-10-08 12:37:00 Memori al [place] Systolic (mm Hg) 2015-10-08 12:37:00 Isidro rial [place] Diastolic (mm Hg) 2015-10-08 12:37:00 Mem orial [place] Temperature Oral (F) 2015-10-08 12:37:00 97.9 F [facility] [place] Heart Rate 2015-10-08 12:37:00 [facility] [place] Systolic (mm Hg) 2015-10-08 10:07:00 Isidro rial [place] Diastolic (mm Hg) 2015-10-08 10:07:00 Mem orial [place] Respitory Rate 2015-10-08 10:07:00 Phyllis al [place] Temperature Oral (F) 2015-10-08 10:07:00 97.8 F [facility] [place] Heart Rate 2015-10-08 10:07:00 [facility] [place] Weight 2015-10-03 21:26:00 [facility] [place] Height 2015-10-03 21:26:00 175.26 cm [facility] [place] BMI Calculated 2015-10-03 21:26:00 Memori al [place] Procedures Procedure Date / Time Performing Clinician Source Performed Appendectomy [facility] [place] Cholecystectomy [facility] [place] Ileostomy [facility] Lumbar spinal [facility] [place] fusion<sup>1</sup> Plan of Care Planned Activity Planned Date Details Comments Source Future Scheduled 2019-11-07 IMM Influenza [facility] Test 00:00:00 Seasonal Nov to April (>/= 19 yrs) [code = IMM Influenza Seasonal Nov to April (>/= 19 yrs)] Future Scheduled 2019-09-07 INFLUENZA VACCINE [facility] 00:00:00 [code = INFLUENZA VACCINE] Future Scheduled 2011-11-01 [facility] 00:00:00 [code = COLONOSCOPY SCREENING] Future Scheduled 2011-11-01 SHINGLES VACCINES [facility] 00:00:00 (#1) [code = SHINGLES VACCINES (#1)] Future Scheduled 2011-11-01 Colorectal Cancer [facility] Test 00:00:00 Scrn Annual (FIT/FOBT) Age 50 to 75 [code = Colorectal Cancer Scrn Annual (FIT/FOBT) Age 50 to 75] Encounters Start End Encounter Admission Attending Care Care Encounter Source Date/Time Date/Time Type Type Clinicians Facility Department ID 2014-09-18 [address] [facility] [id number] [facility] 06:14:00 [facility] 2018-10-23 2018-10-23 Emergency E [facility] [id number] [facility] 17:01:00 17:01:00 2018-06-29 2018-06-29 Inpatient E [facility] [id number] 05:49:00 02:01:00 2018-05-18 2018-05-18 Inpatient E [facility] [id number] 22:33:00 17:18:00 2016-07-14 2016-07-15 Outpatient Albright, [facility] [id number] 17:53:00 11:52:00 Adolfo 04 2016-07-05 2016-07-06 Outpatient El, [facility] [id number] 11:57:00 12:29:00 Rinku Bradley 2015-10-15 2015-10-15 Outpatient Jesenia, [facility] [id number] 11:38:00 14:42:00 Jihan Wasserman 2015-10-03 2015-10-08 Outpatient Alexia [facility] [id number] 16:20:00 16:00:00 , Syeda 2013-08-06 2013-08-06 Outpatient Robi [facility] [id number] 22:03:00 22:41:00 Asiya Tato 00 Results Test Description Test Time Test Comments Results Result Comments Source BASIC METABOLIC PANEL 2018-06-17 06:53:00 Test Item Value Reference Range Interpretation Comme nts SODIUM (test code = NA) 134 MMOL/L 137-145 L POTASSIUM (test code = K) 4.2 MMOL/L 3.5-5.1 N CHLORIDE (test code = CL) 101 MMOL/L 98-107 N CARBON DIOXIDE (test code = CO2) 21 MMOL/L 22-30 L ANION GAP (test code = GAP) 16 MMOL/L 14-24 N GLUCOSE (test code = GLU) 120 MG/DL 74-106 H BLOOD UREA NITROGEN (test code = 16 MG/DL 9-20 N BUN) GLOMERULAR FILTRATION RATE (test > 60 Reporting units: ml/min/1.73 code = GFR) m2 (Modified M DRD Formula)Referen ce Range: > or = 60 ml/min/1.7 3 m2 CREATININE (test code = CREAT) 0.90 MG/DL 0.66-1.25 N CALCIUM (test code = CA) 9.8 MG/DL 8.4-10.2 N [id number] 06:53:00 Test Item Value Reference Range Interpretation Comments PHOSPHOROUS (test code = PHOS) 3.3 MG/DL 2.5-4.5 N [id number] 06:53:00 Test Item Value Reference Range Interpretation Comments MAGNESIUM (test code = 0.9 MG/DL 1.6-2.3 L SALDAÑA D TO TERESA Jorge & MAG) READBACK ON 01/24 AT 0618 Kelsey Ruiz UR OSMOLALITY [id number] 22:04:00 Test Item Value Reference Range Interpretation Comments UR OSMOLALITY RANDOM (test code = 503 MOS/KG 300-1200 N OSMOU) UR SODIUM [id number] 21:47:00 Test Item Value Reference Range Interpretation Comments UR SODIUM RANDOM (test code = NORMAN) < 5 MMOL/L 27-287 L [id number] 07:57:00 Test Item Value Reference Range Interpretation Comments TROPONIN-I (test code = TROPI) 0.025 NG/ML 0.012-0.033 - CTA [id number] 23:04:00 Patient Name: ANKUR ANGELES Unit No: [id number] EXAMS: CPT CODE: [id number] CTA CHEST 92324 CT chest with contrast (PE protocol) HISTORY: Shortness of breath. COMMENT: Multidetector slices through the chest were obtained during contrast administration for evaluation of the pulmonary arteries for pulmonary embolus. Coronal and axial reconstructions were performed and evaluated. Dose lowering technique with automatic exposure control utilized. There is good opacification of the pulmonary arteries with no evidence of filling defect within the central or segmental vessels to suggest pulmonary embolus. Evaluation of the subsegmental tree is limited by suboptimal timing of contrast bolus administration. The aorta is calcific but normal in diameter with no aneurysm or dissection. The lungs are clear. No consolidations or effusions. 4 mm subpleural nodule right middle lobe. Mild left basilar streaky atelectasis. The heart is mildly enlarged. No pericardial effusion. Mild distal esophageal and gastric wall thickening. Osseous structures demonstrate arthritic change in the thoracic spine, with minimal chronic anterior wedge deformities of several thoracic and upper lumbar vertebra IMPRESSION: 1. No evidence of acute pulmonary embolus within the centralor segmental tree. No dissection. 2. Mild cardiomegaly. 3. No consolidationsor effusions. 4. Mild distal esophagitis and gastritis. ElectronicallySigned by Grover Hutchins on 06/15/2018 at 2302 Reported and signed by: Andrew Hutchins M.D. CC: AMISH RUSSO DO Technologist: RT Humble(R)(CT); [place] CTDI: DLP: Trnscrpt: 06/15/2018 (2685) t.SDR.RK5 [facility] Jerad NAME: ANKUR ANGELES [place]YS: [place] [address] : 1960 AG E: 57 SEX: M LOC: MathewERS PHONE #: [phone] EXAM DATE: 06/15/2018 STATUS: REG ER FAX #: [phone] RAD #: D/C DT PAGE 1 Signed Report Patient Name: ANKUR ANGELES Unit No: [id number] EXAMS: CPT CODE: [id number] CTA CHEST 87878 <Continued> Orig Print D/T: S: 06/15/2018 (1639) [facility] Jerad NAME: ANKUR ANGELES [place]YS: [place] [address] : 1960 AGE: 57 SEX: M LOC: Z.ERS PHONE #: [phone] EXAM DATE: 06/15/2018 STATUS: REG ER FAX #: [phone] RAD #: D/C DT PAGE 2 Signed [id number] 21:08:00 Test Item Value Reference Range Interpretation Comments D-DIMER (test 0.83 MG/L FEU 0-0.49 H Negative Pred ictive Value code = cutoff for DVT & PE: <0.50 DDIMER) mg/L FEUInterpr etation: A value of <0.50 mg/L FEU has a NegativePredi ctive Value in ruling out a DVT or PE diagnosis.A jayce ue of 0.50 mg/L or greater is considered Positive.Positi ve result cannot be used for the diagnosis of DV T andPE without using o f standard radiological pr ocedures. COMPREHENSIVE METABOLIC [id number] 20:55:00 Test Item Value Reference Range Interpretation Comments SODIUM (test code = 131 MMOL/L 137-145 L NA) POTASSIUM (test code = 3.7 MMOL/L 3.5-5.1 N K) CHLORIDE (test code = 99 MMOL/L 98-107 N CL) CARBON DIOXIDE (test 18 MMOL/L 22-30 L code = CO2) ANION GAP (test code = 18 MMOL/L 14-24 N GAP) GLUCOSE (test code = 85 MG/DL 74-106 N GLU) BLOOD UREA NITROGEN 7 MG/DL 9-20 L (test code = BUN) GLOMERULAR FILTRATION > 60 Report ing units: RATE (test code = GFR) ml/mi n/1.73 m2 (Modified MDRD Formula)Referen ce Range: > or = 6 0 ml/min/1.73 m2 CREATININE (test code 0.80 MG/DL 0.66-1.25 N = CREAT) TOTAL PROTEIN (test 7.1 G/DL 6.2-7.6 N code = PROT) ALBUMIN (test code = 3.9 G/DL 3.5-5.0 N ALB) CALCIUM (test code = 9.1 MG/DL 8.4-10.2 N CA) BILIRUBIN TOTAL (test 0.6 MG/DL 0.2-1.3 N code = BILT) SGOT/AST (test code = 37 UNITS/L 17-59 N AST) SGPT/ALT (test code = 33 UNITS/L 21-72 ALT) ALKALINE PHOSPHATASE 109 UNITS/L 38-126 N (test code = ALKP) NT PRO-BRAIN NATRIURETIC [id number] 20:55:00 Test Item Value Reference Range Interpretation Comments NT PRO-BRAIN 6920.0 pg/mL 0-125 H ----- NATRIURETIC PEPTI (test code = PROBNP) ---- N T PRO-BNP IS THE REPLACEMENT ASSAY FOR BNP. ----- ----- ---- CBC W/AUTO [id number] 20:30:00 Test Item Value Reference Range Interpretation Comments WHITE BLOOD CELL (test code = 6.7 K/MM3 3.8-9.8 N WBC) RED BLOOD CELL (test code = 3.97 M/MM3 3.95-5.67 N RBC) HEMOGLOBIN (test code = HGB) 10.4 G/DL 12.4-16.7 L HEMATOCRIT (test code = HCT) 31.9 % 35.9-49.5 L MEAN CELL VOLUME (test code = 80 fL 81.7-96.1 L MCV) MEAN CELL HGB (test code = MCH) 26.2 pg 27.6-33.2 L MEAN CELL HGB CONCETRATION 32.6 % 32.9-35.5 L (test code = MCHC) RED CELL DISTRIBUTION WIDTH 18.6 % 12.1-15.2 H (test code = RDW) PLATELET COUNT (test code = 128 K/MM3 129-368 L PLT) MEAN PLATELET VOLUME (test code 11.4 fl 7.4-10.4 H = MPV) NEUTROPHIL % (test code = NT%) 68.4 % 43-75 N IMMATURE GRANULOCYTE % (test 0.1 % 0.0-2.0 N code = IG%) LYMPHOCYTE % (test code = LY%) 20.4 % 14-44 N MONOCYTE % (test code = MO%) 8.8 % 4-13 N EOSINOPHIL % (test code = EO%) 1.6 % 0-6 N BASOPHIL % (test code = BA%) 0.7 % 0-2 N NUCLEATED RBC % (test code = 0.0 % 0-1.0 N NRBC%) NEUTROPHIL # (test code = NT#) 4.60 K/mm3 2.0-7.6 N IMMATURE GRANULOCYTE # (test 0.01 x10 3/uL 0-0.03 N code = IG#) LYMPHOCYTE # (test code = LY#) 1.37 K/mm3 1.0-3.8 N MONOCYTE # (test code = MO#) 0.59 K/mm3 0.1-0.8 N EOSINOPHIL # (test code = EO#) 0.11 K/mm3 0.0-0.2 N BASOPHIL # (test code = BA#) 0.05 K/mm3 0.0-0.2 N NUCLEATED RBC # (test code = 0.00 K/mm3 0.0-0.1 N NRBC#) TROPONIN I [id number] 20:23:00 Test Item Value Reference Range Interpretation Comments TROPONIN I RAPID (test code = 0.02 NG/ML 0.00-0.05 N TROPIRAP) - XR CHEST 2 [id number] 19:32:00 Patient Name: ANKUR ANGELES Unit No: [id number] EXAMS: CPT CODE: [id number] XR CHEST 2 V 97015 Location: U19. CHEST, FRONTAL AND LATERAL VIEWS HISTORY: sob COMPARISON: Chest x-ray 05/12/18. FINDINGS: The lungs are clear without consolidation. No pleural effusion or pneumothorax. The heart size is normal. Trace calcifications affect the aorta. Mild degenerative changes affects the thoracic spine. IMPRESSION: No evidence of acute cardiopulmonary disease. at 1932 Reported and signed by: Henry Rashid MD CC: AMISH RUSSO DO Technologist: Blanca Ko (RT) (AART) Transcrpt Date/Tm/Trnsp: 06/15/2018 (1931) LorenaR.SP17 Orig Print D/T: S: 06/15/2018 (1934) [facility] NAME: ANKUR ANGELES [id number] [address] PHYS: [place] [address] : 1960 AGE: 57 SEX: M LOC: Z.MICHELE PHONE #: [phone] EXAM DATE: 06/15/2018 STATUS: PRE ER FAX #: [phone] RADIOLOGY NO: PAGE 1 Signed ReportBASIC METABOLIC [id number] 22:14:00 Test Item Value Reference Range Interpretation Comments SODIUM (test code = 134 MMOL/L 137-145 L NA) POTASSIUM (test code = 4.4 MMOL/L 3.5-5.1 N K) CHLORIDE (test code = 106 MMOL/L 98-107 N CL) CARBON DIOXIDE (test 15 MMOL/L 22-30 L code = CO2) ANION GAP (test code = 17 MMOL/L 14-24 N GAP) GLUCOSE (test code = 82 MG/DL 74-106 GLU) BLOOD UREA NITROGEN 5 MG/DL 9-20 L (test code = BUN) GLOMERULAR FILTRATION > 60 Report ing units: RATE (test code = GFR) ml/mi n/1.73 m2 (Modified MDRD Formula)Referen ce Range: > or = 6 0 ml/min/1.73 m2 CREATININE (test code 0.90 MG/DL 0.66-1.25 N = CREAT) CALCIUM (test code = 8.5 MG/DL 8.4-10.2 N CA) [id number] 21:52:00 Test Item Value Reference Range Interpretation Comments TROPONIN-I (test code = TROPI) 0.019 NG/ML 0.012-0.033 TROPONIN I [id number] 21:20:00 Test Item Value Reference Range Interpretation Comments TROPONIN I RAPID (test code = 0.03 NG/ML 0.00-0.05 N TROPIRAP) - XR CHEST [id number] 20:38:00 Patient Name: ANKUR ANGELES Unit No: [id number] EXAMS: CPT CODE: [id number] XR CHEST 1V 03006 Location: U19. CHEST, FRONTAL VIEW HISTORY: weakness COMPARISON: Chest x-ray 09/20/17. FINDINGS: The lungs are clear without consolidation. No pleural effusion or pneumothorax. The heart size is normal. Aorta is partially calcified. The bones are unremarkable. IMPRESSION: No evidence of acute cardiopulmonary disease. Electronically Signedby Henry Rashid MD on 05/12/2018 at 2037 Reported and signed by: Henry Rashid MD CC: Moreno Call MD; Adolfo Quintana MD Technologist: Kumar Price, (RT) (R) Transcrpt Date/Tm/Trnsp: 05/12/2018 (2037) t.SDR.SP17 Orig Print D/T: S: 05/12/2018 (2041) [facility] NAME: ANKUR ANGELES [id number] [address] PHYS: TRAMIrena.[place] [address] : 1960 AGE: 57 SEX: M LOC: SAQIB PHONE #: [phone] EXAM DATE: 05/12/2018 STATUS: REG ER FAX #: [phone] RADIOLOGY NO: PAGE 1 Signed Report- CT ABD PELVIS [id number] 19:52:00 Patient Name: ANKUR ANGELES Unit No: [id number] EXAMS: CPT CODE: [id number] CT ABD PELVIS W/CONT 30580 Location: T 18 CT of the abdomen and CT of the pelvis , 05/12/18 CLINICAL HISTORY: Patient presenting to the emergency room with abdominal pain. COMPARISON EXAM: 03/20/17 CT examination of the abdomen and pelvis TECHNIQUE: A CT scan of the abdomen and pelvis conducted scanning in the axial plane acquiring contiguous 5mm slice thickness from the diaphragms through the pubic symphysis with 75 mL of Isovue 300 injected for contrast. Patient was not given enteric contrast with 2D coronal reformatted images acquired. This was acquired on CT workstation using MPR software . The examination was performed on updated helical CT scanner , utilizing low-dose radiation technique. Automatic exposure control technique was utilized to reduce radiation dose. FINDINGS: The liver demonstrates normal size, attenuation and contour without focal masses or enlargement. The patient is status post cholecystectomy. No significant biliary distention is seen. The spleen is normal in size without focal defects.The adrenal glands are unremarkable without masses. The pancreas demonstrates normal contour and attenuation without definite focal masses or enlargement. There is no effacement of the peripancreatic fat to suggest an inflammatory process. There are no peripancreaticfluid collections. Bowel gas pattern is non obstructed and non specific without pneumoperitoneum or pneumatosis. 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 No bowel obstruction is seen or definite acute bowel pathology. Postop changes involving the lumbar spine resulting in mild artifact. Both the abdominal aorta and IVC are unremarkable. Thereis no significant adenopathy within the abdomen. The kidneys demonstrate no hydronephrosis. No fluid collections are identified. There is again presence of a benign right renal cyst fairly. This is unchanged to the prior exam. It measures fluid attenuation requiring no further assessment. The bases of the lungs are clear. [facility] NAME: ANKUR ANGELES [id number] [address] PHYS: ERIS. - [place] [address] : 1960 AGE: 57 SEX: M LOC: SAQIB PHONE #: [phone] EXAM DATE: 05/12/2018 STATUS: REG ER FAX #: [phone] RAD #: D/C DT PAGE 1 Signed Report (CONTINUED) Patient Name: ANKUR ANGELES Unit No: [id number] EXAMS: CPT CODE: [id number] CT ABD PELVIS W/CONT 58027 <Continued> The pelvic contents are unremarkable without mass. No focal fluid collections or adenopathy. IMPRESSION: No acute finding. Postop changes in this patient status post colectomy with pull-through procedure again seen in the right lower quadrant. The findings appear similar to the exam performed in March 2017 at 1951 Reported and signed by: Martell Almaraz MD CC: Moreno Call MD Technologist: [facility] STUDENT ; SHELDON TRIANA RT(R CTDI: DLP: Trnscrpt: 05/12/2018 (1951) [email or web address] Jerad NAME: ANKUR ANGELES [address] PHYS: [place] [address] : 1960 AGE: 57 SEX: M LOC: Alicia.ERS PHONE #: [phone] EXAM DATE: 05/12/2018 STATUS: REG ER FAX #: [phone] RAD #: D/C DT PAGE 2 Signed Report Patient Name: ANKUR ANGELES Unit No: [id number] EXAMS: CPT CODE: [id number] CT ABD PELVIS W/CONT 66486 <Continued> Orig Print D/T: S: 05/12/2018 (1954) [facility] Jerad NAME: ANKUR ANGELES [place] PHYS: Moreno Johnson MD [place] [id number] : 1960 AGE: 57 SEX: M LOC: [employer].ERS PHONE #: [phone] EXAM DATE: 05/12/2018 STATUS: REG ER FAX #: [phone] RAD #: D/C DT PAGE 3 Signed ReportCBC W/AUTO DIFF 2018-05-12 15:49:00 Test Item Value Reference Range Interpretation Comments WHITE BLOOD CELL (test code = 6.3 K/MM3 3.8-9.8 N WBC) RED BLOOD CELL (test code = 4.37 M/MM3 3.95-5.67 N RBC) HEMOGLOBIN (test code = HGB) 12.1 G/DL 12.4-16.7 L HEMATOCRIT (test code = HCT) 39.6 % 35.9-49.5 N MEAN CELL VOLUME (test code = 91 fL 81.7-96.1 N MCV) MEAN CELL HGB (test code = MCH) 27.7 pg 27.6-33.2 N MEAN CELL HGB CONCETRATION 30.6 % 32.9-35.5 L (test code = MCHC) RED CELL DISTRIBUTION WIDTH 21.6 % 12.1-15.2 H (test code = RDW) PLATELET COUNT (test code = 235 K/MM3 129-368 N PLT) MEAN PLATELET VOLUME (test code 11.8 fl 7.4-10.4 H = MPV) NEUTROPHIL % (test code = NT%) 65.6 % 43-75 N IMMATURE GRANULOCYTE % (test 0.5 % 0.0-2.0 N code = IG%) LYMPHOCYTE % (test code = LY%) 22.7 % 14-44 N MONOCYTE % (test code = MO%) 9.4 % 4-13 N EOSINOPHIL % (test code = EO%) 1.0 % 0-6 N BASOPHIL % (test code = BA%) 0.8 % 0-2 N NUCLEATED RBC % (test code = 0.3 % 0-1.0 N NRBC%) NEUTROPHIL # (test code = NT#) 4.14 K/mm3 2.0-7.6 N IMMATURE GRANULOCYTE # (test 0.03 x10 3/uL 0-0.03 N code = IG#) LYMPHOCYTE # (test code = LY#) 1.43 K/mm3 1.0-3.8 N MONOCYTE # (test code = MO#) 0.59 K/mm3 0.1-0.8 N EOSINOPHIL # (test code = EO#) 0.06 K/mm3 0.0-0.2 N BASOPHIL # (test code = BA#) 0.05 K/mm3 0.0-0.2 N NUCLEATED RBC # (test code = 0.02 K/mm3 0.0-0.1 N NRBC#) DIFFERENTIAL [id number] 15:49:00 Test Item Value Reference Range Interpretation Comments RBC MORPHOLOGY REQUIRED (test code = ABNORMAL RBCM) HYPOCHROMIA (test code = HYPO) SLIGHT NONE ANISOCYTOSIS (test code = ANISO) SLIGHT NONE PLATELET ESTIMATE (test code = ADEQUATE ADEQUATE PLTEST) PLATELET MORPHOLOGY (test code = NORMAL NORMAL PLTMORPH) B-TYPE NATRIURETIC [id number] 15:38:00 Test Item Value Reference Range Interpretation Comments B-TYPE NATRIURETIC PEPTIDE (test 807.0 PG/ML 0-100 H code = BNP) COMPREHENSIVE METABOLIC [id number] 15:14:00 Test Item Value Reference Range Interpretation Comments SODIUM (test code = NA) 128 MMOL/L 137-145 L POTASSIUM (test code = 5.7 MMOL/L 3.5-5.1 H K) CHLORIDE (test code = 101 MMOL/L 98-107 N CL) CARBON DIOXIDE (test 14 MMOL/L 22-30 L code = CO2) ANION GAP (test code = 19 MMOL/L 14-24 N GAP) GLUCOSE (test code = 106 MG/DL 74-106 N GLU) BLOOD UREA NITROGEN 5 MG/DL 9-20 L (test code = BUN) GLOMERULAR FILTRATION > 60 Report ing units: RATE (test code = GFR) ml/mi n/1.73 m2 (Modified MDRD Formula)Referen ce Range: > or = 6 0 ml/min/1.73 m2 CREATININE (test code = 0.90 MG/DL 0.66-1.25 N CREAT) TOTAL PROTEIN (test 7.9 G/DL 6.2-7.6 H code = PROT) ALBUMIN (test code = 4.2 G/DL 3.5-5.0 N ALB) CALCIUM (test code = 8.5 MG/DL 8.4-10.2 N CA) BILIRUBIN TOTAL (test 0.9 MG/DL 0.2-1.3 N code = BILT) SGOT/AST (test code = 91 UNITS/L 17-59 H AST) SGPT/ALT (test code = 98 UNITS/L 21-72 H ALT) ALKALINE PHOSPHATASE 92 UNITS/L 38-126 N (test code = ALKP) [id number] 15:14:00 Test Item Value Reference Range Interpretation Comments LIPASE (test code = LIP) 242 UNITS/L 23-300 N CPK-MB [id number] 15:14:00 Test Item Value Reference Range Interpretation Comments CREATINE KINASE (CK) (test code = 186 UNITS/L 55-170 H CK) CKMB (test code = CKMBT) 3.71 NG/ML 0.0-5.6 N CKMB INDEX (test code = CKMBI) 2.0 % 4.0-4.4 L [id number] 15:14:00 Test Item Value Reference Range Interpretation Comments TROPONIN-I (test code = TROPI) 0.018 NG/ML 0.012-0.033 COMPREHENSIVE METABOLIC [id number] 15:02:00 Test Item Value Reference Range Interpretation Comments SODIUM (test code = NA) 128 MMOL/L 137-145 L POTASSIUM (test code = 5.7 MMOL/L 3.5-5.1 H K) CHLORIDE (test code = 101 MMOL/L 98-107 N CL) CARBON DIOXIDE (test 14 MMOL/L 22-30 L code = CO2) ANION GAP (test code = 19 MMOL/L 14-24 N GAP) GLUCOSE (test code = 106 MG/DL 74-106 N GLU) BLOOD UREA NITROGEN 5 MG/DL 9-20 L (test code = BUN) GLOMERULAR FILTRATION > 60 Report ing units: RATE (test code = GFR) ml/mi n/1.73 m2 (Modified MDRD Formula)Referen ce Range: > or = 6 0 ml/min/1.73 m2 CREATININE (test code = 0.90 MG/DL 0.66-1.25 N CREAT) TOTAL PROTEIN (test 7.9 G/DL 6.2-7.6 H code = PROT) ALBUMIN (test code = 4.2 G/DL 3.5-5.0 N ALB) CALCIUM (test code = 8.5 MG/DL 8.4-10.2 N CA) BILIRUBIN TOTAL (test 0.9 MG/DL 0.2-1.3 N code = BILT) SGOT/AST (test code = 91 UNITS/L 17-59 H AST) SGPT/ALT (test code = 98 UNITS/L 21-72 H ALT) ALKALINE PHOSPHATASE 92 UNITS/L 38-126 N (test code = ALKP) [id number] 15:02:00 Test Item Value Reference Range Interpretation Comments LIPASE (test code = LIP) 242 UNITS/L 23-300 N CPK-MB [id number] 15:02:00 Test Item Value Reference Range Interpretation Comments CREATINE KINASE (CK) (test code = 186 UNITS/L 55-170 H CK) CKMB (test code = CKMBT) NG/ML 0.0-5.6 CKMB INDEX (test code = CKMBI) % 4.0-4.4 [id number] 15:02:00 Test Item Value Reference Range Interpretation Comments TROPONIN-I (test code = TROPI) NG/ML 0.0-0.045 CBC W/AUTO [id number] 14:43:00 Test Item Value Reference Range Interpretation Comments WHITE BLOOD CELL (test code = 6.3 K/MM3 3.8-9.8 N WBC) RED BLOOD CELL (test code = 4.37 M/MM3 3.95-5.67 N RBC) HEMOGLOBIN (test code = HGB) 12.1 G/DL 12.4-16.7 L HEMATOCRIT (test code = HCT) 39.6 % 35.9-49.5 N MEAN CELL VOLUME (test code = 91 fL 81.7-96.1 N MCV) MEAN CELL HGB (test code = MCH) 27.7 pg 27.6-33.2 N MEAN CELL HGB CONCETRATION 30.6 % 32.9-35.5 L (test code = MCHC) RED CELL DISTRIBUTION WIDTH 21.6 % 12.1-15.2 H (test code = RDW) PLATELET COUNT (test code = 235 K/MM3 129-368 N PLT) MEAN PLATELET VOLUME (test code 11.8 fl 7.4-10.4 H = MPV) NEUTROPHIL % (test code = NT%) 65.6 % 43-75 N IMMATURE GRANULOCYTE % (test 0.5 % 0.0-2.0 N code = IG%) LYMPHOCYTE % (test code = LY%) 22.7 % 14-44 N MONOCYTE % (test code = MO%) 9.4 % 4-13 N EOSINOPHIL % (test code = EO%) 1.0 % 0-6 N BASOPHIL % (test code = BA%) 0.8 % 0-2 N NUCLEATED RBC % (test code = 0.3 % 0-1.0 N NRBC%) NEUTROPHIL # (test code = NT#) 4.14 K/mm3 2.0-7.6 N IMMATURE GRANULOCYTE # (test 0.03 x10 3/uL 0-0.03 N code = IG#) LYMPHOCYTE # (test code = LY#) 1.43 K/mm3 1.0-3.8 N MONOCYTE # (test code = MO#) 0.59 K/mm3 0.1-0.8 N EOSINOPHIL # (test code = EO#) 0.06 K/mm3 0.0-0.2 N BASOPHIL # (test code = BA#) 0.05 K/mm3 0.0-0.2 N NUCLEATED RBC # (test code = 0.02 K/mm3 0.0-0.1 N NRBC#) DIFFERENTIAL [id number] 14:43:00 Test Item Value Reference Range Interpretation Comments RBC MORPHOLOGY REQUIRED (test code = RBCM) PLATELET ESTIMATE (test code = PLTEST) ADEQUATE PLATELET MORPHOLOGY (test code = NORMAL PLTMORPH) CBC W/AUTO [id number] 14:43:00 Test Item Value Reference Range Interpretation Comments WHITE BLOOD CELL (test code = 6.3 K/MM3 3.8-9.8 N WBC) RED BLOOD CELL (test code = 4.37 M/MM3 3.95-5.67 N RBC) HEMOGLOBIN (test code = HGB) 12.1 G/DL 12.4-16.7 L HEMATOCRIT (test code = HCT) 39.6 % 35.9-49.5 N MEAN CELL VOLUME (test code = 91 fL 81.7-96.1 N MCV) MEAN CELL HGB (test code = MCH) 27.7 pg 27.6-33.2 N MEAN CELL HGB CONCETRATION 30.6 % 32.9-35.5 L (test code = MCHC) RED CELL DISTRIBUTION WIDTH 21.6 % 12.1-15.2 H (test code = RDW) PLATELET COUNT (test code = 235 K/MM3 129-368 N PLT) MEAN PLATELET VOLUME (test code 11.8 fl 7.4-10.4 H = MPV) NEUTROPHIL % (test code = NT%) 65.6 % 43-75 N IMMATURE GRANULOCYTE % (test 0.5 % 0.0-2.0 N code = IG%) LYMPHOCYTE % (test code = LY%) 22.7 % 14-44 N MONOCYTE % (test code = MO%) 9.4 % 4-13 N EOSINOPHIL % (test code = EO%) 1.0 % 0-6 N BASOPHIL % (test code = BA%) 0.8 % 0-2 N NUCLEATED RBC % (test code = 0.3 % 0-1.0 N NRBC%) NEUTROPHIL # (test code = NT#) 4.14 K/mm3 2.0-7.6 N IMMATURE GRANULOCYTE # (test 0.03 x10 3/uL 0-0.03 N code = IG#) LYMPHOCYTE # (test code = LY#) 1.43 K/mm3 1.0-3.8 N MONOCYTE # (test code = MO#) 0.59 K/mm3 0.1-0.8 N EOSINOPHIL # (test code = EO#) 0.06 K/mm3 0.0-0.2 N BASOPHIL # (test code = BA#) 0.05 K/mm3 0.0-0.2 N NUCLEATED RBC # (test code = 0.02 K/mm3 0.0-0.1 N NRBC#) DIFFERENTIAL [id number] 14:43:00 Test Item Value Reference Range Interpretation Comments RBC MORPHOLOGY REQUIRED (test code = RBCM) PLATELET ESTIMATE (test code = PLTEST) ADEQUATE PLATELET MORPHOLOGY (test code = NORMAL PLTMORPH) CHEM [id number] 09:08:001.7[facility] [id number] 09:08:94746 [facility] HermannCHEM [id number] 09:08:000.5[facility]ann[facility] PANEL 2016-07-15 09:08:21309Ocjwzayp HermannCHEM [id number] 09:08:0093[facility] [id number] 09:08:006.3[facility] [id number] 09:08:0016[facility]ann[facility] [id number] 09:08:0074[facility]annCHE[facility] [id number] 09:08:75388Tzsoobnp HermannCHEM [id number] 09:08:000.80 [facility] [id number] 09:08:29595Zcdsoegd HermannCHEM PANEL 2016-07-15 09:08:002.6[facility]annCHE[facility] [id number] 09:08:0097[facility] [id number] 09:08:0022[facility]ann[facility] [id number] 09:08:007.4[facility] [id number] 09:08:003.4[facility] [id number] 09:08:0020[facility] [id number] 09:08:0018.4 [facility] [id number] 09:08:003.7[facility]annCHE[facility] PANEL 2016-07-15 09:08:000.7[facility]annCHE[facility] [id number] 09:08:002.5[facility] [id number] 09:08:69791Wkqzfjmh LnqfslvUYHWIMMEAL8181-99-11 09:08:009.4[facility] RcebjwpZIDTXZHVRO0192-66-32 09:08:005.9[facility] [id number] 09:08:004.01[facility] FyuzlxxXPBMDGNOAT6142-66-29 09:08:00 18.0[facility] ZgoqtefNIRIOJVPYT1841-45-33 09:08:0033.7[facility]annHEMATOLOGY 2016-07-15 09:08:00 Test Item Value Reference Range Interpretation Comments MCH (test code = MCH) 28.8 pg 27.0-31.0 [facility] LgsyataPDZQHRIEVK5999-50-90 09:08:0085.6[facility]annHEMATOLOGY 2016-07-15 09:08:0034.3[facility] PxhckyjKDPMLFTLIN2693-79-62 09:08:0011.6[facility] VbsekrgYNOZRNUZBL8646-11-71 09:08:000.5[facility] HjjknpcMLCNDWPSAD7388-03-29 09:08:000.7[facility] ZhvwompGFYURYMMWE8162-50-85 09:08:003.5[facility] AESTWBMYKD2320-54-80 09:08:001.8[facility] FitqjjeYLOKQNLOHO0052-77-85 09:08:009.3 [facility] WzjdaqmJJUKHXWXZI9502-99-24 09:08:000.5[facility]annHEMATOLOGY 2016-07-15 09:08:0059.1[facility] KxnswpyOGDHOLWPOA2027-26-47 09:08:0030.4[facility]annDRUG RFXLZU8129-07-48 00:26:00Negative *NA*(07/14/16 7:26 PM)[facility] KQSGFO3666-17-57 00:26:00Negative *NA*(07/14/16 7:26 PM)[facility] BSRVLH5012-58-78 00:26:00Negative *NA*(07/14/16 7:26 PM)[facility] MCVINP3149-40-21 00:26:00See Note (07/14/16 7:26 PM)[facility] RGOMTZ8864-56-00 00:26:00Negative *NA*(07/14/16 7:26 PM)[facility] CFXGTL3788-69-34 00:26:00Negative *NA*(07/14/16 7:26 PM)[facility] YLLCCN6362-72-84 00:26:00Negative *NA*(07/14/16 7:26 PM)[facility] NIMNJU3569-12-03 00:26:00Negative *NA*(07/14/16 7:26 PM)[facility] PFFHV6408-91-35 00:26:001.009[facility] SWOKK4121-94-45 00:26:00 5.0[facility] YLAEP0400-33-14 00:26:00Clear (07/14/16 7:26 PM) [facility] UJCGF5395-49-53 00:26:00Light Yellow *NA*(07/14/16 7:26 PM)[facility] TCJID8390-63-66 00:26:001[facility] NGRNN7476-63-09 00:26:004[facility] ALSFG8731-99-72 00:26:002 [facility] HBALO6822-45-80 00:26:00Negative (07/14/16 7:26 PM) [facility] PIFTP9164-20-43 00:26:00Positive *ABN*(07/14/16 7:26 PM) [facility] ADNMW0910-69-72 00:26:00Negative *NA*(07/14/16 7:26 PM) [facility] DMDSP7628-81-98 00:26:00Small *ABN*(07/14/16 7:26 PM) [facility]CARDIAC BBTLXFX3552-76-49 23:49:000.02[facility]annCARDIAC YELEUSK4997-37-70 23:49:0034[facility]annCARDIAC UQHBMXO9506-52-08 23:49:00 6.4[facility]annCHEM GBCZL8687-89-31 23:49:002.0[facility]annELECTROLYTES 2016-07-14 23:49:0018.6[facility] HjbmikqRYNNRWOKOLOQ7484-45-00 23:49:000.9 [facility] OnwgwjiAXHIWONRJELB0224-34-35 23:49:0013[facility]annELECTROLYTES 2016-07-14 23:49:003.7[facility] OqtsotgYDTNREBAMYUE8226-74-16 23:49:003.5[facility] BpsnptoJJQEMTIJIBKC0642-18-54 23:49:40802Voibynsb TiazeduUEHFUJIPPZMB0484-87-64 23:49:31747Wdcntdmm YulvieyZBHWPRFMDHOR3656-01-68 23:49:44861Vdycapie [facility] NZTFPRSJNUBZ7343-34-43 23:49:000.5[facility] LfyujyfENWOGUDLNMLP0367-97-27 23:49:0079[facility] NvhknmfZFYXYWIULUML7017-15-42 23:49:0023[facility] WAVCNVKUDTNR4771-45-78 23:49:19049Uxguphjp TrmezgeYJRUXYUMRYSJ0539-74-98 23:49:003.6[facility] XalmcjzEPFHUVMSIIYS5685-34-06 23:49:007.2[facility] JHZZTSWVYNGV7000-29-82 23:49:007.9[facility] JumitcsFJXXQZYXMYKF8611-43-20 23:49:0088[facility] MyqdwkbRWGCHTGPYYPE9834-06-91 23:49:001.06[facility] NWYBXOYSWMAR3711-97-24 23:49:0014[facility] WonhzyyKOYOFBUGXPTW0387-82-73 23:49:00 142[facility] KeojihoWIXNIADEXX6006-87-83 23:49:000.0[facility]annHEMATOLOGY 2016-07-14 23:49:004.3[facility] IbdzwutGFNUCTHTQT8505-79-13 23:49:000.0[facility] AsnpxatXKKZGGJWZI5077-76-56 23:49:000.4[facility] LvqdfheLWWHIABMBA4728-67-15 23:49:002.5[facility] FgjmsspWRFQPNUWMC5801-53-68 23:49:000.5[facility] WUASCXAFWP1333-95-22 23:49:005.9[facility] NkudivoSYLURKDEOO3447-18-64 23:49:000.4 [facility] IgpvdumFJEVPZXWEJ7830-03-98 23:49:0034.6[facility]annHEMATOLOGY 2016-07-14 23:49:0058.6[facility] YdbbkzrAOLZSKQFHP7170-56-16 23:49:00 Test Item Value Reference Range Interpretation Comments PTT (test code = PTT) 23.0 s 22.9-35.8 [facility] AujyjnnWWHTFCEIHH9802-76-77 23:49:001.01[facility]annHEMATOLOGY 2016-07-14 23:49:00 Test Item Value Reference Range Interpretation Comments PT (test code = PT) 13.5 s 12.0-14.7 [facility] IuxfdokOLIEUHYOZV2291-63-29 23:49:0086.9[facility] HermannHEMATOLOGY 2016-07-14 23:49:009.1[facility] BmwqlltRATYDCNYUP1780-17-23 23:49:00 Test Item Value Reference Range Interpretation Comments MCH (test code = MCH) 28.2 pg 27.0-31.0 [facility] UilcnzdABLGFLVDBY0134-87-03 23:49:0032.5[facility]annHEMATOLOGY 2016-07-14 23:49:0018.3[facility] PodrnbcOLZIBJSGYW5755-73-86 23:49:89259Tiluigbs YjftozxKKXKMMYHUZ9518-85-71 23:49:007.3[facility] BsujhrmUXGFPUCAFC0763-19-81 23:49:004.78[facility] CvfcrxsVGRKFFOEYC7125-87-14 23:49:0013.5[facility] JQOIZSKZZX7172-15-43 23:49:0041.6[facility] AomtucyVOPODYNPLH9520-94-66 23:49:00 0.466[facility] DqemhfjKDUXHTRCXG2948-95-76 23:49:01465Nburhejd HermannDRUG SCREEN 2016-07-05 19:32:00Negative *NA*(07/05/16 2:32 PM)[facility]annDRUG SCREEN 2016-07-05 19:32:00See Note (07/05/16 2:32 PM)[facility]annDRUG SCREEN 2016-07-05 19:32:00Negative *NA*(07/05/16 2:32 PM)[facility]annDRUG SCREEN 2016-07-05 19:32:00Negative *NA*(07/05/16 2:32 PM)[facility]annDRUG SCREEN 2016-07-05 19:32:00Negative *NA*(07/05/16 2:32 PM)[facility]annDRUG SCREEN 2016-07-05 19:32:00Negative *NA*(07/05/16 2:32 PM)[facility]annDRUG SCREEN 2016-07-05 19:32:00Negative *NA*(07/05/16 2:32 PM)[facility]annDRUG SCREEN 2016-07-05 19:32:00Negative *NA*(07/05/16 2:32 PM)[facility]annURINE AND STOOL 2016-07-05 19:32:00<1[facility] AND YRIBW6811-44-00 19:32:001 [facility] FMVRU6862-11-15 19:32:00Clear (07/05/16 2:32 PM) [facility] DXHIU9606-27-47 19:32:00Light Yellow *NA*(07/05/16 2:32 PM)[facility] SUCAW7156-64-23 19:32:00Negative *NA*(07/05/16 2:32 PM)[facility] NIOBD2455-46-69 19:32:00Negative (07/05/16 2:32 PM) [facility] JHJCP6518-66-49 19:32:00Negative (07/05/16 2:32 PM) [facility] YNZXO4025-29-07 19:32:00Negative (07/05/16 2:32 PM) [facility] UFAAO0809-63-71 19:32:001.002[facility] AND OATNG9268-98-39 19:32:006.0[facility] HermannCARDIAC GPAYCDA9489-93-87 18:34:001.5 [facility]annCARDIAC RHOZFBJ9709-19-32 18:34:54153Maziyjwp HermannCARDIAC QCFQNXM1919-84-83 18:34:003.1[facility] HermannCARDIAC ZCJJFLK3628-70-98 18:34:00 <0.02[facility] HermannCHEM RHUBV2020-52-54 18:34:0074[facility] HermannCHEM RFUIN1805-71-99 18:34:0017.8[facility] HermannCHEM FPJUY6458-78-42 18:34:004.1 [facility]annCHEM ITOID8005-54-34 18:34:0010[facility] HermannCHEM PANEL 2016-07-05 18:34:000.9[facility] HermannCHEM GMHXJ5547-06-62 18:34:003.8[facility] HermannCHEM CJWJD1487-15-18 18:34:75345Qujbkrcv HermannCHEM NSBJD6150-50-34 18:34:0034[facility] HermannCHEM WVAHG6509-23-37 18:34:0015[facility] HermannCHEM CGRRM5624-79-55 18:34:95475Raxtaamh HermannCHEM BVXKG4284-71-25 18:34:0037 [facility]annCHEM FBHUD4662-99-56 18:34:000.2[facility] HermannCHEM PANEL 2016-07-05 18:34:07117Dokbjwfy HermannCHEM JZURE6754-95-35 18:34:008.4[facility] HermannCHEM PQSVD6621-10-20 18:34:007.6[facility] HermannCHEM DJEWY8592-66-09 18:34:003.5[facility] HermannCHEM LDBSH2133-00-33 18:34:0095[facility] HermannCHEM TTUZH1838-98-75 18:34:0011[facility] HermannCHEM UOOGR1284-60-22 18:34:001.12 [facility] HermannCHEM ROBAV9872-68-40 18:34:95294Zuozjjek HermannCARDIAC ENZYMES 2016-07-05 17:26:008[facility] NeiumrjMOZWJREZMU1155-49-03 17:26:000.2[facility] HpwwwfrXTNTXFBRAS2910-69-23 17:26:000.6[facility] FacfxgnEAUXZOFQXJ2289-72-37 17:26:002.8[facility] LxsmporCKVWNZVOTB8937-92-86 17:26:000.1[facility] PVDTACKEVW0406-01-69 17:26:0030.6[facility] EkxgohoOJHBCHQEQV0635-41-91 17:26:00 6.1[facility] SfubfprRUPDCNFIQR2313-65-37 17:26:0059.6[facility] HermannHEMATOLOGY 2016-07-05 17:26:001.3[facility] KcyubnrPUDNPCARQJ1770-05-40 17:26:005.5[facility] ZbjscphEQRWCVTCDM0025-09-23 17:26:002.4[facility] ZyhxoioJNUUPUWHDB9045-24-36 17:26:001.02[facility] NurrocgWYEGLNINGB8054-60-20 17:26:00 Test Item Value Reference Range Interpretation Comments PT (test code = PT) 13.6 s 12.0-14.7 [facility] GhhcbjgUZGWOYCJQE1320-40-45 17:26:0033.2[facility] HermannHEMATOLOGY 2016-07-05 17:26:0084.9[facility] VdufeppRPOBZQLRHJ0730-15-26 17:26:00 Test Item Value Reference Range Interpretation Comments MCH (test code = MCH) 28.2 pg 27.0-31.0 [facility] GfkrlfbUHJMYBGDCX3402-13-86 17:26:0014.6[facility] HermannHEMATOLOGY 2016-07-05 17:26:0044.1[facility] IplpogtDXAYWZZXZV3122-52-90 17:26:85619Djjbvjmg GoxlnqqRNRHDKGVUT8131-35-13 17:26:0016.0[facility] DscrheqGDADFDNXHW6567-56-88 17:26:008.9[facility] FvdrqibTKKVHVNEKD5813-66-94 17:26:005.19[facility] RGTBPMLHJT9802-82-22 17:26:009.3[facility] RgtuouuEQQGNADALB5189-14-85 17:26:00 0.424[facility] BegnjevNZTVFJRUFT6968-56-32 17:26:25236Rrcxfima [place] NPIPAFSPZIDE0982-34-42 13:15:97446Uayvsvuu DvmldzzYITOXJAZTNCU2094-73-14 13:15:008[facility] IsmshkgIQTPEIGNFCLD1433-06-89 13:15:001.04[facility] NJLZDGWDVRQH4312-00-39 13:15:64599Opltoiwd KyjcdymVTDGTZYBXDQO4940-55-93 13:15:0012.9[facility] UxcajzpNEIOWTLVKQFV5292-47-67 13:15:003.9[facility] YKPOUEMMPVBJ1190-99-23 13:15:0025[facility] IwfmmtgOSLVJLDEXCLD2127-40-46 13:15:00 8.2[facility] MdsyfbtIDDDLVEHOFDO1061-62-75 13:15:86493Mwfxupfg Nawaf QVSEFYYCCCAI7364-06-03 13:15:0082[facility] HermannCHEM PGBWX4860-58-40 08:59:00 4.1[facility] HermannCHEM KIOUV4896-65-92 08:59:001.7[facility] HermannCHEM PANEL 2015-10-05 08:59:0095[facility] HermannCHEM JOWDU5894-78-75 08:59:004.0[facility] HermannCHEM PBWRC5366-04-69 08:59:0087[facility] HermannCHEM VDUDV0428-90-16 08:59:009[facility] HermannCHEM DQSYB8244-77-10 08:59:75927Cseuzlpl HermannCHEM ZFPHK1227-79-52 08:59:0023[facility] HermannCHEM EVDPK3120-35-28 08:59:96826 [facility]annCHEM DVPVI2236-17-86 08:59:000.91[facility] HermannCHEM PANEL 2015-10-05 08:59:008.5[facility] HermannCHEM EIMFF9121-16-18 08:59:0012.0[facility] LytmhfzNUTUGQKLXT7561-32-32 08:59:000.2[facility] JduzzdhDHFWDUICKT3397-57-37 08:59:000.4[facility] CxmbvarOARQDLJJVB3163-18-76 08:59:0044.9[facility] YMABISMJFB7662-00-35 08:59:0042.3[facility] FakesgpLSTZSFJSNI3960-42-21 08:59:00 4.6[facility] KrhxcsgOTZEDWZBGH2525-70-57 08:59:002.2[facility] HermannHEMATOLOGY 2015-10-05 08:59:001.0[facility] LftquswAFXWTNKSKS0689-33-02 08:59:007.2[facility] QhcgtjqVTHOTPGVHS1606-09-82 08:59:002.3[facility] IwaywaxSBHOVXCKQT3923-80-59 08:59:0013.8[facility] SnbmaspLUUGVVBVGA9037-16-66 08:59:0031.6[facility] DVWDUKNHPT5858-53-82 08:59:0034.2[facility] HraygkpLXYRLIXXMY6442-88-70 08:59:00 92.7[facility] YgctpahMSQSXCPTGW7125-53-59 08:59:00 Test Item Value Reference Range Interpretation Comments MCH (test code = MCH) 31.7 pg 27.0-31.0 [facility] WevihxiSTRODRGCSG6261-45-89 08:59:003.41[facility] HermannHEMATOLOGY 2015-10-05 08:59:0010.8[facility] FvhrhseTZNWAUTHXL9012-29-49 08:59:005.2[facility] KhjcxbtNCLUPASDUF5756-83-74 08:59:20325Kxwsciev DdlrdlpPUTCOUPULZ6417-91-79 08:59:009.8[facility] VtixnvqTZAAIZYGEW3834-32-85 08:59:001.00[facility] DNOFFPYGEY2294-37-22 08:59:00 Test Item Value Reference Range Interpretation Comments PTT (test code = PTT) 32.3 s 22.9-35.8 [facility] TwxjgxtBOVOPELUIA6628-48-14 08:59:00 Test Item Value Reference Range Interpretation Comments PT (test code = PT) 13.5 s 12.0-14.7 [facility] UWAVNQZ3388-13-53 10:48:00Negative (10/04/15 5:48 AM) [facility] TNDOU4152-14-70 10:32:00Negative *NA*(10/04/15 5:32 AM) [facility] QJZFI1556-57-52 10:32:00Negative (10/04/15 5:32 AM) [facility] ATMXQ5141-49-96 10:32:000.2[facility]UR[facility] WKSDG9467-78-79 10:32:00Negative (10/04/15 5:32 AM)[facility] VZWFL5117-18-44 10:32:00Negative (10/04/15 5:32 AM)[facility] EAGDG0030-46-28 10:32:00 Test Item Value Reference Range Interpretation Comments UA pH (test code = UA pH) 5.5 1 5.0-8.0 [facility] WMYIE4353-03-73 10:32:00 Test Item Value Reference Range Interpretation Comments UA Spec Grav (test code = UA Spec 1.025 1 Grav) [facility] WAXDH3297-99-21 10:32:00Yellow *NA*(10/04/15 5:32 AM) [facility] EANXW6047-20-44 10:32:00Clear (10/04/15 5:32 AM) [facility] ILEEX4038-69-85 10:32:00None Seen (10/04/15 5:32 AM) [facility] KgjlrhoYEGBQYGJWNPT8182-79-17 23:28:0016.7[facility] HermannELECTROLYTES 2015-10-03 23:28:0086[facility] WhyzegxEHNEPCTVOQUZ5813-94-49 23:28:008.8[facility] ZjbnzpmAIRHHHGYCSSJ9904-18-75 23:28:05499Vqbqphmi AzbbnwrPMQTDNFVUOQQ8264-06-59 23:28:001.00[facility] UprilpjVVDWUIWDCEGH5816-22-36 23:28:007[facility] PVWMCLFZGXJI1384-78-06 23:28:98208[place] CnfwjrtWWKUITYDTHYB0760-62-75 23:28:003.7[facility] BxytpopFOWTISQSBXBU2123-25-94 23:28:0021[facility] DLPLADAEJHUB6160-49-00 23:28:0091[facility] YcgwfaoIIVPFEYIYF3341-07-22 23:28:00 59.7[facility] NlvoqbxEKHJYLESNC9427-53-85 23:28:002.6[facility] HermannHEMATOLOGY 2015-10-03 23:28:006.5[facility] KugxzchLKVDJRISIB9024-17-91 23:28:0030.3[facility] KbopjjsUUGOJSEKBG7462-54-26 23:28:000.9[facility] DaqeehgXDGTBNGJLT6747-35-01 23:28:000.1[facility] RvvdiquXYCFFLUGCL5898-82-15 23:28:004.5[facility] PKLWTFQFUY0833-29-60 23:28:000.2[facility] LxeazeyDZKYHOMOFU2494-26-62 23:28:000.5 [facility] UosfsiiEKGFQLDERW9066-61-47 23:28:002.3[facility] HermannHEMATOLOGY 2015-10-03 23:28:001.01[facility] XrpnnhjEEPNQRVQAP0420-12-27 23:28:00 Test Item Value Reference Range Interpretation Comments PT (test code = PT) 13.6 s 12.0-14.7 [facility] EzeuzzpSOHHIBOZXU6902-18-99 23:28:00 Test Item Value Reference Range Interpretation Comments PTT (test code = PTT) 36.5 s 22.9-35.8 [facility] TshpgzeTEJBHNFGIF9860-16-26 23:28:003.41[facility]annHEMATOLOGY 2015-10-03 23:28:0010.8[facility] LvdyssfLWYVIJJOVB7198-63-76 23:28:0034.1[facility] ZcghvqaWNTBNZZIEB9370-03-52 23:28:009.5[facility] ArlsdolVCPZFXWPPU8956-22-39 23:28:33526Rndlruuz VjppzhwZTTMJOJMWS1483-23-74 23:28:0013.9[facility] EUWKYVVUQU4586-84-97 23:28:0031.6[facility] AsrqnixKNHRPBBMBH4803-74-27 23:28:00 Test Item Value Reference Range Interpretation Comments MCH (test code = MCH) 31.6 pg 27.0-31.0 [facility] PsviqxlSGZSCCOMDM7109-33-55 23:28:0092.7[facility] HermannHEMATOLOGY 2015-10-03 23:28:007.6[facility]
--- NOTE | 2019-08-13 11:36 | RAD REPORT ---
EXAM DESCRIPTION: RAD - Chest Single View - 08/13/2019 11:29 am CLINICAL HISTORY: SOB COMPARISON: Portable August 05 TECHNIQUE: AP portable chest image was obtained 08/13/2019 11:29 am . FINDINGS: Lung volumes are low. Portable technique, low lung volume and large body habitus affects s ubstantially limit the examination. Left base is hazy. Interstitial pattern is not substantially diff erent when adjusting for the exam limitations. There is respiratory motion degradation in addition to the other limiting factors. Cardiac silhouette is enlarged by body habitus and low lung volumes. Vasculature is mildly prominent. No measurable pleural effusion and no pneumothorax. No acute bony abnormality seen. No acute aortic findings suspected. IMPRESSION: Exam is not grossly different from August 05 examination. As detailed above, there are significant limitations on this examination that could obscure early inf iltrates, particularly left lung base.
[2019-08-13 12:01] LABS: Barbiturates NEGATIVE (NEGATIVE); Benzodiazepines NEGATIVE (NEGATIVE); Cocaine NEGATIVE (NEGATIVE); METHAMPHETAM NEGATIVE (NEGATIVE); Methadone NEGATIVE (NEGATIVE); Opiates NEGATIVE (NEGATIVE); Phencyclidine NEGATIVE (NEGATIVE); THC Cannibis NEGATIVE (NEGATIVE)
[2019-08-13 12:14] LABS: Urine Bacteria <20 /HPF (NONE SEEN); Urine Culture Reflex Order NOT NEEDED; Urine RBC <5 /HPF (NONE SEEN)
--- NOTE | 2019-08-13 12:19 | EDPHYS ---
Physician Documentation [facility] Name: Satnam Khan Age: 58 yrs Sex: Male : 1960 Arrival Date: 08/13/2019 Time: 09:41 Bed 26 Private MD: ED Physician Pablo Maxwell HPI: 08/12 10:40 This 58 yrs old Male presents to ER via EMS with complaints of SOB, Cough. snw 10:40 The patient or guardian reports chest pain that is located primarily in the anterior snw chest wall, left. Onset: suddenly, this morning. The pain radiates to Associated signs and symptoms: Pertinent positives: shortness of breath. The chest pain is described as aching. Duration: The patient or guardian reports multiple episodes. Severity of pain: At its worst the pain was mild moderate. EMS care prior to arrival includes: supplemental oxygen. It is unknown whether or not the patient has had similar symptoms in the past. The patient has been recently seen by a physician: with different complaint(s), pacer/defib wire replacement. Historical: - Allergies: : No Known Allergies; rb1 - Home Meds: :41 aspirin 325 mg Oral tab 1 tab once daily [Active]; potassium chloride 20 mEq Oral TbER rb1 2 tab once daily [Active]; tamsulosin 0.4 mg oral cp24 1 cap once daily [Active]; minocycline 100 mg Oral tab 1 tab 2 times per day [Active]; quetiapine 100 mg oral tab 1 tab one daily [Active]; atorvastatin 80 mg oral tab 1 tab once daily [Active]; lorazepam 1 mg Oral tab 1 tab 3 times per day [Active]; metoprolol succinate 25 mg oral Tb24 1 tab once daily [Active]; spironolactone 25 mg Oral tab 1 tab once daily [Active]; dicyclomine 10 mg Oral cap 2 caps PRN [Active]; pantoprazole 40 mg oral TbEC 1 tab once daily [Active]; furosemide 40 mg Oral tab 1 tab once daily [Active]; magnesium oxide 420 mg Oral tab 2 TABS daily [Active]; - PMHx: 09:41 CHF; Hypertension; Myocardial infarction; spinal injury; rb1 - PSHx: :41 Heart stents; pacemaker; right shoulder; back; rb1 - Immunization history:: Adult Immunizations up to date. - Social history:: Smoking status: Patient/guardian denies using. ROS: 10:38 Constitutional: Negative for fever, chills, and weight loss, Eyes: Negative for injury, snw pain, redness, and discharge, ENT: Negative for injury, pain, and discharge, Neck: Negative for injury, pain, and swelling, Cardiovascular: Negative for palpitations and edema, + chest pain Respiratory: Positive for shortness of breath, no cough, wheezing, and pleuritic chest pain, Abdomen/GI: Negative for abdominal pain, vomiting, diarrhea, and constipation, + nausea Back: Negative for injury and pain, : Negative for injury, bleeding, discharge, and swelling, MS/Extremity: Negative for injury and deformity, Skin: Negative for injury, rash, and discoloration, Neuro: Negative for headache, weakness, numbness, tingling, and seizure, Psych: Negative for depression, anxiety, suicide ideation, homicidal ideation, and hallucinations. Exam: 10:34 Head/Face: Normocephalic, atraumatic. Eyes: Pupils equal round and reactive to light, snw extra-ocular motions intact. Lids and lashes normal. Conjunctiva and sclera are non-icteric and not injected. Cornea within normal limits. Periorbital areas with no swelling, redness, or edema. ENT: Nares patent. No nasal discharge, no septal abnormalities noted. Tympanic membranes are normal and external auditory canals are clear. Oropharynx with no redness, swelling, or masses, exudates, or evidence of obstruction, uvula midline. Mucous membranes moist. Neck: Trachea midline, no thyromegaly or masses palpated, and no cervical lymphadenopathy. Supple, full range of motion without nuchal rigidity, or vertebral point tenderness. No Meningismus. 10:34 Constitutional: The patient appears alert, awake, obese, uncomfortable, unkempt. 10:34 Chest/axilla: Inspection: normal, recent replacement of pacer/defib wire, steri-strips intact, Palpation: is normal, Axilla: are normal. 10:34 Cardiovascular: Rate: tachycardic, Rhythm: irregular, Pulses: no pulse deficits are appreciated, Heart sounds: normal. 10:34 ECG was reviewed by the Attending Physician. Vital Signs: 09:41 BP 122 / 96; Pulse 119; Resp 21; Pulse Ox 94% on 3 lpm NC; Weight 129.27 kg (R); Height rb1 5 ft. 9 in. (175.26 cm); Pain 9/10; 10:43 BP 118 / 78; Pulse 117; Resp 25 S; Pulse Ox 95% on 3 lpm NC; ca1 11:45 BP 124 / 80; Pulse 117; Resp 20; Pulse Ox 95% on 2 lpm NC; ca1 12:46 BP 112 / 81; Pulse 107; Resp 23 S; Pulse Ox 94% on 2 lpm NC; ca1 09:41 Body Mass Index 42.09 (129.27 kg, 175.26 cm) rb1 MDM: 11:04 Patient medically screened. snw 12:18 ECG:. The patient was given aspirin in the Emergency Department. Data reviewed: vital snw signs, nurses notes. Data interpreted: Pulse oximetry: on room air is 95 %. Interpretation: hypoxia. Plan: O2 by NC applied. Physician consultation: Milind FERNÁNDEZ was called at 12:22, was contacted at 12:22, regarding admission, to the telemetry unit. Special discussion:. 08/12 10:24 Order name: Blood Culture Adult (2) [facility] 08/12 10:24 Order name: BMP [facility] 08/12 10:24 Order name: C-Reactive Protein [facility] 08/12 10:24 Order name: CBC with Diff [facility] 08/12 10:24 Order name: COVID-19 [facility] 08/12 10:24 Order name: Ferritin [facility] 08/12 10:24 Order name: Lactate [facility] 08/12 10:24 Order name: LFT's [facility] 08/12 10:24 Order name: Lipase [facility] 08/12 10:24 Order name: Procalcitonin [facility] 08/12 10:24 Order name: PT-INR; Complete Time: 11:04 w 08/12 10:24 Order name: Ptt, Activated; Complete Time: 11:04 [facility] 08/12 10:24 Order name: Troponin (emerg Dept Use Only); Complete Time: 12:02 snw 08/12 10:24 Order name: Urine Microscopic Only; Complete Time: 12:15 snw 08/12 10:25 Order name: ABG; Complete Time: 12:02 w 08/12 10:25 Order name: Blood Culture [facility] 08/12 10:25 Order name: Basic Metabolic Panel; Complete Time: 12:02 [facility] 08/12 10:25 Order name: C-Reactive Protein; Complete Time: 12: [facility] 08/12 10:25 Order name: CBC with Automated Diff; Complete Time: 13:07 [facility] 08/12 10:25 Order name: CORONAVIRUS; Complete Time: 13: [facility] 08/12 10:25 Order name: Ferritin; Complete Time: 12: [facility] 08/12 10:25 Order name: Lactate; Complete Time: 12: [facility] 08/12 10:25 Order name: Liver (Hepatic) Function; Complete Time: 12: [facility] 08/12 10:25 Order name: Lipase; Complete Time: 12: [facility] 08/12 10:25 Order name: Procalcitonin; Complete Time: 12: [facility] 08/12 10:39 Order name: UDS; Complete Time: 12: [facility] 08/12 10:51 Order name: Glucose, Ancillary Testing; Complete Time: 11: [facility] 08/12 10:55 Order name: CBC Smear Scan; Complete Time: 13: [facility] 08/12 11:42 Order name: Urine Dipstick--Ancillary (enter results); Complete Time: 12:22 [facility] 08/12 15:19 Order name: Lactate Sepsis 2 HR Follow-up; Complete Time: 15:23 [facility] 08/12 10:24 Order name: CXR XRAY; Complete Time: 12:02 [facility] 08/12 10:24 Order name: EKG; Complete Time: 10: [facility] 08/12 10:24 Order name: Cardiac monitoring; Complete Time: 10:08/12 10:24 Order name: Document PUI#; Complete Time: 10:31 08/12 10:24 Order name: Droplet/Contact Precautions; Complete Time: 10:43 [facility] 08/12 10:24 Order name: EKG - Nurse/Tech; Complete Time: 10:08/12 10:24 Order name: IV Start; Complete Time: 10:26 08/12 10:24 Order name: Labs collected and sent; Complete Time: 10:26 [facility] 08/12 10:24 Order name: Notify Health Dept [phone]/ ; Complete Time: 10:26 snw 08/12 10:24 Order name: O2 Per Protocol; Complete Time: 10:26 snw 08/12 10:24 Order name: O2 Sat Monitoring; Complete Time: 10:26 snw 08/12 10:24 Order name: Urine Dipstick-Ancillary (obtain specimen); Complete Time: 12:44 snw 08/12 16:19 Order name: Osmolality, Serum; Complete Time: 16:31 EDMS 08/12 16:33 Order name: Urine Sodium Random snw 08/12 16:33 Order name: Urine Potassium Random snw 08/12 17:11 Order name: UR SODIUM; Complete Time: 17:19 EDMS 08/12 17:11 Order name: UR POTASSIUM; Complete Time: 17:19 EDMS 08/12 17:45 Order name: Osmolality, Urine; Complete Time: 17:52 EDMS 08/12 18:58 Order name: UR CL RANDOM; Complete Time: 07:21 EDMS 08/12 23:06 Order name: Basic Metabolic Panel; Complete Time: 07:21 EDMS 08/13 02:08 Order name: Basic Metabolic Panel; Complete Time: 07:21 EDMS EC:34 Rate is 117 beats/min. Rhythm is regular. QRS [place] is Normal. HI interval is normal. snw QRS interval is prolonged. QT interval is normal. No Q waves. T waves are Normal. Clinical impression: NSR w/ Non-specific ST/T Changes and Sinus tachycardia. Administered Medications: 10:35 Drug: Aspirin Chewable Tablet 324 mg Route: PO; ca1 12:51 Follow up: Response: No adverse reaction ca1 12:35 Drug: NS 0.9% 500 ml Route: IV; Rate: bolus; Site: right wrist; ca1 Disposition: 08/13/19 12:18 Hospitalization ordered by Derick Brunson for Inpatient Admission. Preliminary diagnosis are Acidosis, Hypo-osmolality and hyponatremia, Elevated cardiac enzymes. - Bed requested for Telemetry/MedSurg (Inpatient). - Status is Inpatient Admission. jd3 - Condition is Stable. - Problem is new. - Symptoms have worsened. Addendum: 08/15/2019 21:25 Co-signature as Attending Physician, Pablo Maxwell MD Did not see or evaluate patient. p s1 I was available in the ED for consultation. Signature for administrative purposes. . Signatures: Dispatcher [employer] EDMS Shaye Valentin, ANDRES RN dm5 Flaca Patrick, [employer] Vale Bryan, ANDRES RN tl1 Lilo Lorenzo, RN RN rb1 Mauricio Nielsen RN RN jd3 Pablo Maxwell MD MD ps1 Odessa Mei RN RN ca1 Corrections: (The following items were deleted from the chart) 08/12 10:31 10:24 Rangel ordered. snw ca1 15:09 12:18 Hospitalization Ordered by Derick Brunson DO for Inpatient Admission. Preliminary dm5 diagnosis is Acidosis; Hypo-osmolality and hyponatremia; Elevated cardiac enzymes. Bed requested for Telemetry/MedSurg (Inpatient). Status is Inpatient Admission. Condition is Stable. Problem is new. Symptoms have worsened. snw 08/13 01:35 08/12 15:09 08/13/2019 12:18 Hospitalization Ordered by Derick Brunson DO for Inpatient tl1 Admission. Preliminary diagnosis is Acidosis; Hypo-osmolality and hyponatremia; Elevated cardiac enzymes. Bed requested for [facility]. Status is Inpatient Admission. Condition is Stable. Problem is new. Symptoms have worsened. dm5 08/13 02:14 01:35 08/13/2019 12:18 Hospitalization Ordered by Derick Brunson DO for Inpatient jd3 Admission. Preliminary diagnosis is Acidosis; Hypo-osmolality and hyponatremia; Elevated cardiac enzymes. Bed requested for Telemetry/MedSurg (Inpatient). Status is Inpatient Admission. Condition is Stable. Problem is new. Symptoms have worsened. tl1
--- NOTE | 2019-08-13 12:19 | ER ---
Nurse's Notes [facility] Name: Satnam Khan Age: 58 yrs Sex: Male : 1960 Arrival Date: 08/13/2019 Time: 09:41 Bed 26 Private MD: Diagnosis: Acidosis;Hypo-osmolality and hyponatremia;Elevated cardiac enzymes Presentation: 08/12 09:41 Chief complaint: EMS states: Pt. c/o SOB, nausea, and cough. A-febrile 97.6 orally, may rb1 be related to CHF. Reports drinking several beers last night. History of CHF, Pacemaker, Spinal injury. NKDA Had a new wire placed last Monday, [facility] O2 sat 94% on RA, put on 2 L NC 95%. Has an ileostomy bag on the right abdomen. Coronavirus screen: Patient reports a cough. Patient reports shortness of breath or difficulty breathing. Patient denies measured and/or subjective temperature greater than 100.4F prior to today's visit. Patient denies travel on a cruise ship or to a country the [facility] currently lists as an affected area. Patient denies contact with known and/or suspected case of COVID-19. Ebola Screen: Patient denies travel to an Ebola-affected area in the 21 days before illness onset. Onset of symptoms was August 12, 2019. 09:41 Method Of Arrival: EMS: [facility] rb1 09:41 Acuity: ROCÍO 3 rb1 09:41 Initial Sepsis Screen: Does the patient meet any 2 criteria? RR > 20 per min. HR > 90 rb1 bpm. Yes Does the patient have a suspected source of infection? Yes: Productive cough/pneumonia. Risk Assessment: Do you want to hurt yourself or someone else? Patient reports no desire to harm self or others. Triage Assessment: 09:41 General: Appears in no apparent distress. comfortable, obese, Behavior is calm, rb1 cooperative, Denies fever. Pain: Complains of pain in generalized Pain currently is 9 out of 10 on a pain scale. Neuro: Level of Consciousness is awake, alert, obeys commands, Oriented to person, place, time, situation. Cardiovascular: Capillary refill < 3 seconds Has a pacemaker. Historical: - Allergies: 09:41 No Known Allergies; rb1 - Home Meds: 09:41 aspirin 325 mg Oral tab 1 tab once daily [Active]; potassium chloride 20 mEq Oral TbER rb1 2 tab once daily [Active]; tamsulosin 0.4 mg oral cp24 1 cap once daily [Active]; minocycline 100 mg Oral tab 1 tab 2 times per day [Active]; quetiapine 100 mg oral tab 1 tab one daily [Active]; atorvastatin 80 mg oral tab 1 tab once daily [Active]; lorazepam 1 mg Oral tab 1 tab 3 times per day [Active]; metoprolol succinate 25 mg oral Tb24 1 tab once daily [Active]; spironolactone 25 mg Oral tab 1 tab once daily [Active]; dicyclomine 10 mg Oral cap 2 caps PRN [Active]; pantoprazole 40 mg oral TbEC 1 tab once daily [Active]; furosemide 40 mg Oral tab 1 tab once daily [Active]; magnesium oxide 420 mg Oral tab 2 TABS daily [Active]; - PMHx: 09:41 CHF; Hypertension; Myocardial infarction; spinal injury; rb1 - PSHx: 09:41 Heart stents; pacemaker; right shoulder; back; rb1 - Immunization history:: Adult Immunizations up to date. - Social history:: Smoking status: Patient/guardian denies using. Screenin:41 Abuse screen: Denies threats or abuse. Nutritional screening: No deficits noted. rb1 Tuberculosis screening: No symptoms or risk factors identified. Fall Risk No fall in past 12 months (0 pts). Secondary diagnosis (15 points) impaired mobility, IV access (20 points). Ambulatory Aid- None/Bed Rest/Nurse Assist (0 pts). Gait- Impaired (20 pts.). Mental Status- Oriented to own ability (0 pts). Total Hu Fall Scale indicates High Risk Score (45 or more points). Fall prevention measures have been instituted. Side Rails Up X 2 Placed Close to Nursing Station 1:1 Attendant Assigned Frequent Obs/Assessments Occuring As available patient and family educated on Fall Prevention Program and Strategies. Assessment: 10:05 General: Appears in no apparent distress. uncomfortable, Behavior is calm, cooperative, ca1 appropriate for age. Pain: Complains of pain in chest Pain currently is 7 out of 10 on a pain scale. Pain began this morning Is intermittent. Neuro: Level of Consciousness is awake, alert, obeys commands, Oriented to person, place, time, situation. Cardiovascular: Heart tones S1 S2 present Capillary refill < 3 seconds Patient's skin is warm and dry. Rhythm is sinus tachycardia. Respiratory: Reports shortness of breath Airway is patent Respiratory effort is even, unlabored, Respiratory pattern is symmetrical, tachypnea Breath sounds are clear bilaterally. GI: Abdomen is round non-distended, Bowel sounds present X 4 quads. Abd is soft and non tender X 4 quads. : No signs and/or symptoms were reported regarding the genitourinary system. EENT: No signs and/or symptoms were reported regarding the EENT system. Derm: Skin is intact, is healthy with good turgor, Skin is pink, warm \T\ dry. Musculoskeletal: Circulation, motion, and sensation intact. Capillary refill < 3 seconds. 11:02 Reassessment: Patient appears in no apparent distress at this time. Patient and/or ca1 family updated on plan of care and expected duration. Pain level reassessed. Patient is alert, oriented x 3, equal unlabored respirations, skin warm/dry/pink. 12:05 Reassessment: Patient appears in no apparent distress at this time. Patient and/or ca1 family updated on plan of care and expected duration. Pain level reassessed. Patient is alert, oriented x 3, equal unlabored respirations, skin warm/dry/pink. 12:52 Reassessment: Patient appears in no apparent distress at this time. Patient and/or ca1 family updated on plan of care and expected duration. Pain level reassessed. Patient is alert, oriented x 3, equal unlabored respirations, skin warm/dry/pink. 08/13 02:03 Reassessment: report given to Kika RN, nurse for room 209. jd3 Vital Signs: 08/12 09:41 BP 122 / 96; Pulse 119; Resp 21; Pulse Ox 94% on 3 lpm NC; Weight 129.27 kg (R); Height rb1 5 ft. 9 in. (175.26 cm); Pain 9/10; 10:43 BP 118 / 78; Pulse 117; Resp 25 S; Pulse Ox 95% on 3 lpm NC; ca1 11:45 BP 124 / 80; Pulse 117; Resp 20; Pulse Ox 95% on 2 lpm NC; ca1 12:46 BP 112 / 81; Pulse 107; Resp 23 S; Pulse Ox 94% on 2 lpm NC; ca1 09:41 Body Mass Index 42.09 (129.27 kg, 175.26 cm) rb1 ED Course: 09:41 Patient arrived in ED. rb1 09:41 Patient has correct armband on for positive identification. Bed in low position. Call rb1 light in reach. Side rails up X2. desk monitor on. Pulse ox on. NIBP on. Warm blanket given. 09:41 Arm band placed on left wrist. rb1 09:41 Missed attempt(s): 22 gauge in right wrist. Attempted by Kiera.. Bleeding rb1 controlled, band aid applied, catheter tip intact. 09:46 Flaca Qureshi FNP-C is PHCP. snw 09:46 Pablo Maxwell MD is Attending Physician. snw 09:47 Triage completed. rb1 10:13 Odessa Mei, ANDRES is Primary Nurse. ca1 10:15 Inserted saline lock: 22 gauge in right forearm, using aseptic technique. ,using ca1 aseptic technique. by MATTHEW Thayer Blood collected. 10:15 Initial lab(s) drawn, by ED staff, sent to lab. First set of blood cultures drawn by ED ca1 staff. 11:11 Second set of blood cultures drawn by ED staff. ca1 11:29 CXR XRAY In Process Unspecified. EDMS 12:17 Derick Brunson DO is Hospitalizing Provider. snw 14:05 Report given to ANDRES Hess. ca1 17:02 Urine Potassium Random Sent. jp3 17:02 Urine Sodium Random Sent. jp3 17:55 Diet tray ordered. jp3 20:00 Diet tray given. jp3 21:49 Repeat lab(s) drawn. by ky, sent to lab. jp3 Administered Medications: 10:35 Drug: Aspirin Chewable Tablet 324 mg Route: PO; ca1 12:51 Follow up: Response: No adverse reaction ca1 12:35 Drug: NS 0.9% 500 ml Route: IV; Rate: bolus; Site: right wrist; ca1 Outcome: 12:18 Decision to Hospitalize by Provider. snw 08/13 02:14 Patient left the ED. jd3 Signatures: Dispatcher [employer] EDMI Flaca Patrick FNP-C FNP-Lilo Patrick, RN RN rb1 Mauricio Nielsen RN RN jd3 Maxime Martinez jp3 Odessa Mei RN RN ca1 Corrections: (The following items were deleted from the chart) 08/12 09:51 09:41 Chief complaint: EMS states: Pt. c/o SOB, nausea, and cough. A-febrile 97.6 rb1 orally, may be related to CHF. Reports drinking several beers last night. History of CHF, Pacemaker, Spinal injury. NKDA Had a new wire placed last Monday, [facility] O2 sat 94% on RA, put on 2 L NC 95%. rb1
[2019-08-13 12:22] LABS: Urine Blood NEGATIVE (NEG); Urine Glucose NEGATIVE (NEG); Urine Protein NEGATIVE (NEG)
[2019-08-13] MEDS ORDERED: NA CHLORIDE 0.9% 500 ML ONE (12:37)
[2019-08-13 12:59] LABS: Anisocytosis 2+; Blood Morphology Comment NOTED (NOT SEEN); Hypochromasia 1+; Platelet Estimate ADEQ; Polychromasia 1+; Urine White Blood Cell Casts OK
--- NOTE | 2019-08-13 14:50 | P.HP ---
Certification for Inpatient Patient admitted to: Inpatient With expected LOS: >2 Midnights Patient will require the following post-hospital care: None Practitioner: I am a practitioner with admitting privileges, knowledge of patient current condition, hospital course, and medical plan of care. Services: Services provided to patient in accordance with Admission requirements found in Title 42 Section 412.3 of the Code of Federal Regulations <ShunMilind - Last Filed: 08/13/19 14:44> Patient admitted to: Inpatient <Derick Brunson - Last Filed: 08/13/19 16:38> Patient History Date of Service: 08/13/19 Primary Care Provider: [place] Reason for admission: Hyponatremia, shortness of breath History of Present Illness: 58-year-old male with medical history of congestive heart failure, hypertension, GERD, hyperlipidemia presented to the emergency department for a 2 months history of shortness of breath. Patient reports that the shortness of breath became much worse today but also reports that he has had a weight gain of approximately 30 lb in the past month or 2. Patient reports that he also was at the [place] for repair of 1 of the leads on his pacemaker/defibrillator. During his evaluation in the emergency department patient was found to have a sodium level of 119. Patient also had a very slight elevation in the troponin of 0.08. After evaluation in the emergency department. ED provider wishes to admit patient for further management. When I saw the patient in the emergency department he did not appear to be any distress. Patient was on nasal cannula and mildly tachypneic. Patient does not appear septic at this time. Patient will be admitted for further evaluation and management. - Past Medical/Surgical History Diabetic: No -: CHF -: Hypertension -: Hyperlipidemia -: GERD -: Spinal cord injury -: Ileostomy -: Pacemaker/defibrillator -: Back surgery -: Total shoulder surgery Psychosocial/ Personal History: Patient lives at home alone but does have home health - Family History Family History: Reviewed- Non-Contributory - Social History Smoking Status: Former smoker Alcohol use: Yes CD- Drugs: No Caffeine use: No Place of Residence: Home <Milind Hoffmann - Last Filed: 08/13/19 14:44> Date of Service: 08/13/19 <Derick Brunson - Last Filed: 08/13/19 16:38> Review of Systems General: Malaise, Other (fatigue) Eyes: Unremarkable ENT: Unremarkable Respiratory: Shortness of Breath Cardiovascular: Orthopnea Gastrointestinal: Unremarkable Genitourinary: Unremarkable Musculoskeletal: Unremarkable Integumentary: Unremarkable Neurological: Unremarkable <Milind Hoffmann - Last Filed: 08/13/19 14:44> Physical Examination - Physical Exam General: Alert, In no apparent distress, Oriented x3 HEENT: Atraumatic, Normocephalic Neck: Supple Respiratory: Diminished (Bilaterally) Cardiovascular: Normal pulses, Regular rate/rhythm, Edema (Mild nonpitting pedal edema) Capillary refill: <2 Seconds Gastrointestinal: Normal bowel sounds, Soft and benign, Other (obese) Musculoskeletal: No contractures, No erythema, No tenderness Integumentary: No erythema, No warmth, No cyanosis Neurological: Normal speech, Normal strength at 5/5 x4 extr, Normal tone, Normal affect - Studies Laboratory Data (last 24 hrs) 08/13/19 10:15: PT 13.0 H, INR 1.10, APTT 28.5 08/13/19 10:15: WBC 5.4, Hgb 10.6 L, Hct 32.1 L, Plt Count 149 L 08/13/19 10:15: Sodium 119 L*, Potassium 3.9, BUN 6 L, Creatinine 1.05, Glucose 111 H, Total Bilirubin 0.5, AST 83 H, ALT 42, Alkaline Phosphatase 110, Lipase 366 Microbiology Data (last 24 hrs): 08/13/19 10:10 Nasopharnyx Coronavirus COVID-19 PCR - Final <Milind Hoffmann - Last Filed: 08/13/19 14:44> - Studies Laboratory Data (last 24 hrs) 08/13/19 10:15: PT 13.0 H, INR 1.10, APTT 28.5 08/13/19 10:15: WBC 5.4, Hgb 10.6 L, Hct 32.1 L, Plt Count 149 L 08/13/19 10:15: Sodium 119 L*, Potassium 3.9, BUN 6 L, Creatinine 1.05, Glucose 111 H, Total Bilirubin 0.5, AST 83 H, ALT 42, Alkaline Phosphatase 110, Lipase 366 Microbiology Data (last 24 hrs): 08/13/19 10:10 Nasopharnyx Coronavirus COVID-19 PCR - Final <Derick Brunson - Last Filed: 08/13/19 16:38> Assessment and Plan - Plan Assessment Hyponatremia Congestive heart failure Hypertension Hyperlipidemia GERD Plan Hyponatremia: Nephrology was consulted immediately. I have ordered urine electrolytes, urine and serum osmolality. The patient to be on 1 L fluid restriction, no maintenance fluids at this time. Will continue to monitor patient's electrolytes closely. Will continue to monitor patient's mental status. Appreciate further input from nephrology. Congestive heart failure: Cardiology has been consulted on this case. Patient reports the last echocardiogram he had was over 1 year ago. Echocardiogram has been ordered. Will continue with fluid restriction and worked in conjunction with cardiology and nephrology to manage patient's CHF and hyponatremia. Will also obtain daily weights. Hypertension: Will obtain and continue patient's home medications. Will continue to monitor patient's blood pressure during this hospitalization. Hyperlipidemia: Will obtain and continue patient's home medications. GERD: Will obtain and continue patient's home medications. Discharge Plan: Home Plan to discharge in: Greater than 2 days - Advance Directives Does patient have a Living Will: No Does patient have a Durable POA for Healthcare: No - Code Status/Comfort Care Code Status Assessed: Yes (Patient is full code) Time Spent Managing Pts Care (In Minutes): 55 <Milind Hoffmann - Last Filed: 08/13/19 14:44>
[2019-08-13] MEDS ORDERED: ONDANSETRON 4 MG/2 ML VIAL IV PRN (14:51)
[2019-08-13] MEDS ORDERED: ACETAMINOPHEN 500 MG TAB PO PRN (14:51)
[2019-08-13] MEDS: PANTOPRAZOLE 40MG TABLET PO SCH (16:45)
[2019-08-13] MEDS: LORazepam 2 MG/ML VIAL IV PRN (20:44)
--- NOTE | 2019-08-13 20:44 | P.CNS ---
Date of Consult: 08/13/19 Primary Care Provider: PHILIPPE Chief Complaint: Hyponatremia, shortness of breath History of Present Illness: Pt is a 58 y/o male with past medical hx of HTN, GERD, Hiatel hernia s/p repair, ileostomy presenting with compalints of diffuse myalgias and shortness of breath that has been ongoing for 2 weeks. Pt endorses occasional fevers anD chills. Denies any Known covid exposures. Denies palpiatations, sob. Endorses nausea and vomiting w/o diarrhea. Of note, pt states he drinks lots of water because of the liquid out put in his ileostomy On admission, pt noted to have sodium level of 119. Renal has been consulted for management of hyponatremia. Bear test results still pending Allergies No Known Allergies Allergy (Verified 08/13/19 14:50) Home Medications: Aspirin 325 mg PO DAILY 08/13/19 Atorvastatin Calcium [Lipitor] 80 mg PO BEDTIME 08/13/19 Dicyclomine [Bentyl] 10 mg PO DAILY PRN 08/13/19 Furosemide [Lasix] 40 mg PO DAILY 08/13/19 LORazepam [Lorazepam] 1 mg PO TID 08/13/19 Magnesium Oxide 2 tab PO DAILY 08/13/19 Metoprolol Succinate [Toprol Xl] 25 mg PO DAILY 08/13/19 Minocycline HCl 100 mg PO BID 08/13/19 Pantoprazole [Protonix Tab] 40 mg PO DAILY 08/13/19 Potassium Chloride 20 meq PO DAILY 08/13/19 Quetiapine [Seroquel] 100 mg PO DAILY 08/13/19 Spironolactone [Aldactone*] 25 mg PO DAILY 08/13/19 Tamsulosin [Flomax] 0.4 mg PO DAILY 08/13/19 - Past Medical/Surgical History Diabetic: No -: CHF -: Hypertension -: Hyperlipidemia -: GERD -: Spinal cord injury -: [place] -: Ileostomy -: Pacemaker/defibrillator -: Back surgery -: Total shoulder surgery Psychosocial/ Personal History: Patient lives at home alone but does have home health - Social History Alcohol use: Yes CD- Drugs: No Caffeine use: No Place of Residence: Home Review of Systems General: Fever, Chills Eyes: Unremarkable ENT: Unremarkable Respiratory: Unremarkable Cardiovascular: Orthopnea, Paroxysmal Noc. Dyspnea Gastrointestinal: Nausea, Vomiting Genitourinary: Unremarkable Musculoskeletal: Back Pain Integumentary: Unremarkable Neurological: Unremarkable Lymphatics: Unremarkable Physical Examination Temp Pulse Resp BP Pulse Ox 98.3 F 106 H 18 131/95 H 97 08/13/19 16:00 08/13/19 16:00 08/13/19 16:00 08/13/19 16:00 08/13/19 16:00 General: Alert, Oriented x3 HEENT: Atraumatic, Normocephalic, PERRLA Neck: Supple, JVD not distended, Without JVD or thyroid abnormality Respiratory: Clear to auscultation bilaterally Cardiovascular: No edema, Normal pulses, Regular rate/rhythm Capillary refill: <2 Seconds Gastrointestinal: Normal bowel sounds, Soft and benign Musculoskeletal: No clubbing, No erythema Integumentary: No rashes, No significant lesion Neurological: Normal gait Laboratory Data (last 24 hrs) 08/13/19 10:15: PT 13.0 H, INR 1.10, APTT 28.5 08/13/19 10:15: WBC 5.4, Hgb 10.6 L, Hct 32.1 L, Plt Count 149 L 08/13/19 10:15: Sodium 119 L*, Potassium 3.9, BUN 6 L, Creatinine 1.05, Glucose 111 H, Total Bilirubin 0.5, AST 83 H, ALT 42, Alkaline Phosphatase 110, Lipase 366 - Problems (1) Hyponatremia Current Visit: Yes Status: Acute (2) Respiratory alkalosis Current Visit: Yes Status: Acute (3) Metabolic acidosis Current Visit: Yes Status: Acute Conclusions/Impression: Plan 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 Current sodium;119 goal correction 125 Uine studies suggestive of excess hypotonic fluid intake with tea and toast syndrome. S/P IV bolus. 1L fluid restriction. Will repeat stat bmp If overcorrected will start ddavp and d5w Respiratory alkalosis compensated with metabolic acidosis Evaluate for cause of hypoxia. Rule out covid or PE. Thank you for this consult will continue to follow.
[2019-08-14] MEDS ORDERED: LORazepam 2 MG/ML VIAL ONE (01:47)
[2019-08-14] MEDS: LORazepam 2 MG/ML VIAL IV PRN ×3 (01:48→10:36)
[2019-08-14 02:08] LABS: Potassium 3.9 mmol/L (3.5-5.1)
[2019-08-14] MEDS: TRAMADOL HCL 50 MG TAB PO PRN (03:10)
[2019-08-14 05:31] LABS: Absolute Lymphocytes (CBC) 0.9 K/uL (0.7-4.9); Basophils % 0.5 % (0-1.3); Hematocrit 31.4 % (39.6-49.0); RBC Red Blood Cell Count 3.86 M/uL (4.33-5.43)
[2019-08-14 06:14] LABS: Potassium 4.1 mmol/L (3.5-5.1); Troponin I 0.11 ng/mL (0.0-0.045)
[2019-08-14 06:22] LABS: Magnesium 0.8 mg/dL (1.8-2.4)
[2019-08-14] MEDS ORDERED: DESMOPRESSIN 4 MCG/ML AMP SQ STA (06:23)
[2019-08-14] MEDS ORDERED: MAGNESIUM 50% 3 GM in NA CHLORIDE 0.9% 100 ML IV ONE (06:23)
[2019-08-14] MEDS ORDERED: Magnesium Sulfate 2gm IVPB 2 G/50 ML BAG IV ONE (06:36)
[2019-08-14] MEDS ORDERED: NA CHLORIDE 0.9% 100 ML ONE (06:43)
--- NOTE | 2019-08-14 06:52 | P.PN ---
Subjective Date of Service: 08/15/19 Primary Care Provider: PHILIPPE Chief Complaint: Hyponatremia, shortness of breath Subjective: Improving Pt still complaining of generalized myalgias. COVID was negative. Vitals are stable. He is okay with discharging home tommorrow if labs are stable. Review of Systems General: Other (mylagias) ENT: Unremarkable Respiratory: Unremarkable Cardiovascular: Unremarkable Gastrointestinal: Unremarkable Genitourinary: Unremarkable Integumentary: Unremarkable Neurological: Unremarkable Physical Examination - Vital Signs Temperature: 97.0 F Blood Pressure: 127/82 Pulse: 123 Respirations: 18 Pulse Ox (%): 98 - Physical Exam General: Alert, In no apparent distress HEENT: Atraumatic, Normocephalic, PERRLA Neck: Supple, JVD not distended Respiratory: Clear to auscultation bilaterally, Normal air movement Cardiovascular: Regular rate/rhythm, Normal S1 S2 Capillary refill: <2 Seconds Gastrointestinal: Normal bowel sounds, No tenderness Integumentary: No rashes Neurological: Normal speech, Normal tone, Normal affect - Studies Laboratory Data (last 24 hrs) 08/13/19 10:15: PT 13.0 H, INR 1.10, APTT 28.5 08/13/19 10:15: WBC 5.4, Hgb 10.6 L, Hct 32.1 L, Plt Count 149 L 08/13/19 10:15: Sodium 119 L*, Potassium 3.9, BUN 6 L, Creatinine 1.05, Glucose 111 H, Total Bilirubin 0.5, AST 83 H, ALT 42, Alkaline Phosphatase 110, Lipase 3 66 Microbiology Data (last 24 hrs): 08/13/19 10:10 Nasopharnyx Coronavirus COVID-19 PCR - Final Assessment & Plan - Problems (Diagnosis) (1) Hyponatremia Current Visit: Yes Status: Acute (2) Respiratory alkalosis Current Visit: Yes Status: Acute (3) Metabolic acidosis Current Visit: Yes Status: Acute Plan: 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 Current sodium;119 goal correction 125 by 10am on 08/13. Afterwards may correct up to 131 by 10am 08/14. Uine studies suggestive of excess hypotonic fluid intake with tea and toast syndrome. S/P IV bolus. 1L fluid restriction. Starting ddavp and d5w due to over correction up to 130. BMP Q4H Further recommendation and fluid titration pending ensuing labs, Nursing to update me with results. Respiratory alkalosis compensated with metabolic acidosis Evaluate for cause of hypoxia. Rule out covid or PE. Will continue to follow.
[2019-08-14] MEDS: D5W 1,000 ML IV SCH ×2 (07:14→13:40)
--- NOTE | 2019-08-14 07:19 | EKG ---
Test Date: 2019-08-13 Test Time: 10:10:15 Automatic Bow Maker Machine Tender: SACHIN MEASUREMENT RESULTS: Intervals: Rate: 117 GA: 160 QRSD: 120 QT: 330 QTc: 460 [place]: P: 68 GA: 160 QRS: -6 T: 38 INTERPRETIVE STATEMENTS: Sinus tachycardia Incomplete left bundle branch block Nonspecific T wave abnormality Abnormal ECG Compared to ECG 08/06/2019 00:41:34 Left bundle-branch block now present Intraventricular conduction delay no longer present T-wave abnormality still present Electronically Signed On 08-14-19 07:18:15 CDT by Nando Lozano
[2019-08-14] MEDS ORDERED: LORAZEPAM 0.5 MG TABLET PO PRN (07:43)
--- NOTE | 2019-08-14 08:15 | CON ---
Date of Consultation: 08/14/2019 Patient admitted on 08/13/2019. I saw the patient on 08/14/2019. Reason For Consultation: Congestive heart failure. History Of Present Illness: Mr. Khan is a 58-year-old white male with history of cardiomyopathy, probably ischemic. Has had a stent in the past, but he does not know where, but he does have a pacem elissa and defibrillator. Has a history of hypertension. He is new to the area and is cared for by [facility]. He came in with about 2 months of dyspnea on exertion, pedal edema and increas ed abdominal girth. No chest pain, nausea, vomiting, diaphoresis. Denies PND and orthopnea. Denied palpitations or syncope. Past Medical History: As stated above. Allergies: NONE. Review of Systems: Negative. Social History: Negative. Family History: Noncontributory. Medications: At home include aspirin, Lipitor, Lasix, metoprolol, potassium, magnesium, Protonix, Al dactone, Seroquel, and Flomax. Physical Examination: General: He weighed 284 pounds. Appears to be in no acute distress at rest. Vital Signs: Stable. He was in sinus tachycardia at 119. He was afebrile. HEENT: Negative. Neck: Supple without any bruit, lymphadenopathy, JVD, or thyromegaly. Chest: Bilateral rales. Cardiac: Revealed a paced rhythm. No murmurs, gallops, or rubs. Abdomen: Obese with ascites. Extremities: Revealed 2+ edema. Diagnostic Data: His sodium was 119. His chloride was 114. His troponin 1.08. Hemoglobin is 10.6, magnesium 0.8. His troponin was negative. BNP was pending. EKG showed sinus tachycardia. Impression And Plan: 1.Acute on chronic systolic congestive heart failure. I think his laboratory evaluation is secondar y to hypervolemia and is dilutional. I would definitely hold all his medications for now except for the Lasix. I would continue his beta-blockers. He needs an echocardiogram scheduled. We will follo w him along. We will slowly resume his other medications. He has a normal kidney function and if hi s echocardiogram showed a low ejection fraction, he may be a good candidate for Entresto. I would de finitely hold the Flomax. He can certainly continue the Protonix therapy awhile and Lipitor as well. I will discuss the case further with Dr. Brunson. QUETA/AIDAN Voice ID: [id number] Report ID: [id number]
[2019-08-14] MEDS: METOPROLOL XL 25 MG TAB PO SCH (08:27)
[2019-08-14] MEDS: ENOXAPARIN 40 MG/0.4 ML SQ SCH (08:27)
[2019-08-14] MEDS: PANTOPRAZOLE 40MG TABLET PO SCH ×2 (08:27→18:07)
[2019-08-14] MEDS: MAGNESIUM OXIDE 400 MG TAB PO SCH (08:27)
[2019-08-14] MEDS: ASPIRIN 325 MG TAB PO SCH (08:27)
[2019-08-14] MEDS: TAMSULOSIN 0.4 MG SR CAP PO SCH (08:30)
[2019-08-14] MEDS ORDERED: MAGNESIUM SULFATE 1 gm IVPB 1 GM/100 ML BAG IV ONE ×2 (08:30→21:00)
[2019-08-14 08:33] LABS: Potassium 3.9 mmol/L (3.5-5.1)
[2019-08-14] MEDS ORDERED: QUETIAPINE 100MG TAB PO SCH (09:00)
--- NOTE | 2019-08-14 09:32 | P.PN ---
Subjective Date of Service: 08/14/19 Primary Care Provider: PHILIPEP Chief Complaint: Hyponatremia, shortness of breath Subjective: Improving Review of Systems General: Unremarkable Eyes: Unremarkable ENT: Unremarkable Respiratory: Shortness of Breath Cardiovascular: Unremarkable Gastrointestinal: Unremarkable Genitourinary: Unremarkable Musculoskeletal: Unremarkable Integumentary: Unremarkable Neurological: Unremarkable Lymphatics: Unremarkable Physical Examination - Vital Signs Temperature: 97.8 F Blood Pressure: 119/73 Pulse: 117 Respirations: 18 Pulse Ox (%): 96 - Physical Exam General: Alert, In no apparent distress HEENT: Atraumatic, Normocephalic Neck: Supple Respiratory: Diminished (Bilaterally with mild tachypnea) Cardiovascular: Normal pulses, Regular rate/rhythm, Normal S1 S2 Capillary refill: <2 Seconds Gastrointestinal: Normal bowel sounds, Soft and benign Musculoskeletal: No contractures, No erythema, No tenderness Integumentary: No significant lesion, No tenderness/swelling, No erythema Neurological: Normal speech, Normal strength at 5/5 x4 extr, Normal tone - Studies Laboratory Data (last 24 hrs) 08/13/19 10:15: PT 13.0 H, INR 1.10, APTT 28.5 08/13/19 10:15: WBC 5.4, Hgb 10.6 L, Hct 32.1 L, Plt Count 149 L 08/13/19 10:15: Sodium 119 L*, Potassium 3.9, BUN 6 L, Creatinine 1.05, Glucose 111 H, Total Bilirubin 0.5, AST 83 H, ALT 42, Alkaline Phosphatase 110, Lipase 366 Microbiology Data (last 24 hrs): 08/13/19 10:10 Nasopharnyx Coronavirus COVID-19 PCR - Final Assessment & Plan Discharge Plan: Home Plan to discharge in: 48 Hours - Code Status/Comfort Care Code Status Assessed: Yes (Patient is full code) Physician Review Additional Text: Assessment 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 Sodium has improved, calls for slow increase in serum sodium. Patient's sodium has improved this morning. C ontinue with 1 L fluid restriction at this time. Continue with nephrology recommendations. Appreciate further input from nephrology. Congestive heart failure: Cardiology has been consulted on this case. Will continue with 1 L fluid restriction and daily weights. Cardiology recommends addition of beta-lori which has been initiated. Will continue to monitor patient's fluid status closely. Hypertension: Will obtain and continue patient's home medications. Will continue to monitor patient's blood pressure during this hospitalization. Hyperlipidemia: Will obtain and continue patient's home medications. GERD: Will obtain and continue patient's home medications. Critical Care: No Time Spent Managing Pts Care (In Minutes): 55
[2019-08-14 12:19] LABS: Magnesium 1.8 mg/dL (1.8-2.4); Potassium 3.8 mmol/L (3.5-5.1)
[2019-08-14] MEDS ORDERED: D5W 1,000 ML IV SCH (13:00)
[2019-08-14 14:09] VITALS: BMI 40.3
[2019-08-14 16:35] LABS: Magnesium 1.6 mg/dL (1.8-2.4); Potassium 3.7 mmol/L (3.5-5.1)
[2019-08-14] MEDS: LORAZEPAM 1 MG TABLET PO PRN (18:07)
[2019-08-14] MEDS: ATORVASTATIN 80 MG TAB PO SCH (20:14)
[2019-08-14] MEDS: QUETIAPINE 100MG TAB PO SCH (20:14)
[2019-08-15 01:55] VITALS: O2SAT 97
[2019-08-15] MEDS: LORAZEPAM 1 MG TABLET PO PRN ×2 (02:09→09:18)
[2019-08-15 06:06] LABS: Absolute Lymphocytes (CBC) 0.8 K/uL (0.7-4.9); Basophils % 1.1 % (0-1.3); Hematocrit 31.8 % (39.6-49.0); Lymphocytes % 15.1 % (15.3-44.8); MPV 10.2 fL (7.6-11.3); RBC Red Blood Cell Count 3.84 M/uL (4.33-5.43)
[2019-08-15 06:24] LABS: Magnesium 1.7 mg/dL (1.8-2.4); Potassium 3.9 mmol/L (3.5-5.1)
--- NOTE | 2019-08-15 08:20 | ECHO ---
HEIGHT: 5 ft 9 in WEIGHT: 264 lb 4.8 oz DATE OF STUDY: 08/14/[address]: Milind Hoffmann NP 2-DIMENSIONAL: YES M.MODE: YES DOPPLER: YES COLOR FLOW: YES TDS: NO PORTABLE: NO DEFINITY: NO BUBBLE STUDY: NO DIAGNOSIS: CONGESTIVE HEART FAILURE CARDIAC HISTORY: CATHERIZATION: NO SURGERY: NO PROSTHETIC VALVE: NO PACEMAKER: YES MEASUREMENTS (cm) DIASTOLIC (NORMALS) SYSTOLIC (NORMALS) IVSd 1.0 (0.6-1.2) LA Diam 4.8 (1.9-4.0) LVEF 25-30% LVIDd 6.2 (3.5-5.7) LVIDs 5.1 (2.0-3.5) %FS 18% LVPWd 1.2 (0.6-1.2) Ao Diam 3.0 (2.0-3.7) 2 DIMENSIONAL ASSESSMENT: RIGHT ATRIUM: NORMAL LEFT ATRIUM: DILATED RIGHT VENTRICLE: PACEMAKER LEFT VENTRICLE: DILATED TRICUSPID VALVE: NORMAL MITRAL VALVE: NORMAL PULMONIC VALVE: NORMAL AORTIC VALVE: NORMAL PERICARDIAL EFFUSION: NONE AORTIC ROOT: NORMAL LEFT VENTRICULAR WALL MOTION: SEVERE GLOBAL HYPOKINESIS. DOPPLER/COLOR FLOW: NORMLA COMMENTS: SEVERE GLOBAL HYPOKINESIS. LEFT VENTRICULAR EJECTION FRACTIO 25-30%. PACEMAKER IN RIGHT VENTRICULAR APEX. LEFT VENTRICULAR DILITATION. LEFT ATRIAL ENLARGEMENT. TECHNOLOGIST: Lavon FRANCISCO
[2019-08-15] MEDS ORDERED: MAGNESIUM SULFATE 1 gm IVPB 1 GM/100 ML BAG IV ONE (09:00)
[2019-08-15] MEDS ORDERED: POTASSIUM CL SA 10 MEQ TAB PO ONE (09:00)
[2019-08-15] MEDS: ASPIRIN 325 MG TAB PO SCH (09:18)
[2019-08-15] MEDS: ENOXAPARIN 40 MG/0.4 ML SQ SCH (09:18)
[2019-08-15] MEDS: TAMSULOSIN 0.4 MG SR CAP PO SCH (09:18)
[2019-08-15] MEDS: TRAMADOL HCL 50 MG TAB PO PRN (09:18)
[2019-08-15] MEDS: PANTOPRAZOLE 40MG TABLET PO SCH ×2 (09:18→17:25)
[2019-08-15] MEDS: METOPROLOL XL 25 MG TAB PO SCH (09:18)
[2019-08-15] MEDS: MAGNESIUM OXIDE 400 MG TAB PO SCH (09:19)
[2019-08-15 11:45] LABS: Potassium 4.1 mmol/L (3.5-5.1)
--- NOTE | 2019-08-15 14:06 | RAD REPORT ---
EXAM DESCRIPTION: RAD - Chest Pa And Lat (2 Views) - 08/15/2019 1:56 pm CLINICAL HISTORY: follow up CHF Chest pain. COMPARISON: Chest Single View dated 08/13/2019; Chest Single View dated 08/06/2019 FINDINGS: The lungs are clear. The heart is mildly enlarged in size with a multilead pacer/defibrill ator device. Right shoulder arthroplasty noted. IMPRESSION: No acute or concerning finding suspected.
[2019-08-15] MEDS: LORAZEPAM 1 MG TABLET PO SCH ×2 (16:31→20:04)
[2019-08-15 16:41] LABS: Potassium 4.5 mmol/L (3.5-5.1)
--- NOTE | 2019-08-15 17:35 | P.PN ---
Subjective Date of Service: 08/15/19 Primary Care Provider: PHILIPPE Chief Complaint: Hyponatremia, shortness of breath Subjective: Other (Patient with increase anxiety.) Physical Examination - Vital Signs Temperature: 97.7 F Blood Pressure: 121/82 Pulse: 114 Respirations: 20 Pulse Ox (%): 97 - Physical Exam General: Alert, Other (Increase anxiety) HEENT: Atraumatic Neck: Supple Respiratory: Clear to auscultation bilaterally, Normal air movement Cardiovascular: Abnormal pulses (Sinus tachycardia) Gastrointestinal: Normal bowel sounds, No masses, No rebound, No guarding Integumentary: Tenderness/swelling (1+ pitting edema to the lower extremities) - Studies Medications List Reviewed: Yes Assessment & Plan Discharge Plan: Home Plan to discharge in: 24 Hours Physician Review Additional Text: Assessment 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 Sodium has improved. IV fluids stopped. Patient will get salt tablet today and tomorrow. Nephrology agrees with plan of care as suggested by Cardiology. Will start Lasix and Aldactone tomorrow. Anticipate discharge tomorrow. Acute on chronic systolic CHF with ejection fraction 25%: Case discussed at length with cardiology. Will start Entresto, carvedilol, Lasix and Aldactone. Hypertension: Medications have been adjusted Hyperlipidemia: Continue medication GERD: Continue medication PTSD: Continue medication Time Spent Managing Pts Care (In Minutes): 55
[2019-08-15] MEDS ORDERED: carvediloL 12.5 MG TAB PO SCH (18:00)
[2019-08-15] MEDS: carvediloL 6.25 MG TAB PO SCH (18:00)
[2019-08-15] MEDS: SODIUM CHLORIDE 1 GM TAB PO SCH (20:04)
[2019-08-15] MEDS: QUETIAPINE 100MG TAB PO SCH (20:05)
[2019-08-15] MEDS: SACUBITRIL/VALSARTAN 24/26 MG TAB PO SCH (20:05)
[2019-08-15] MEDS: ATORVASTATIN 80 MG TAB PO SCH (20:05)
[2019-08-16] MEDS: LORAZEPAM 1 MG TABLET PO PRN ×2 (02:59→09:22)
[2019-08-16] MEDS: carvediloL 6.25 MG TAB PO SCH (06:00)
[2019-08-16 06:31] LABS: Absolute Lymphocytes (CBC) 1.1 K/uL (0.7-4.9); Basophils % 1.2 % (0-1.3); Hematocrit 31.6 % (39.6-49.0); Lymphocytes % 14.7 % (15.3-44.8); MPV 10.4 fL (7.6-11.3); RBC Red Blood Cell Count 3.77 M/uL (4.33-5.43)
[2019-08-16 06:52] LABS: Potassium 4.6 mmol/L (3.5-5.1)
[2019-08-16 07:06] LABS: Magnesium 1.4 mg/dL (1.8-2.4)
[2019-08-16] MEDS ORDERED: MAGNESIUM SULFATE 1 gm IVPB 1 GM/100 ML BAG IV ONE (07:34)
[2019-08-16] MEDS ORDERED: SODIUM CHLORIDE 1 GM TAB PO SCH (08:00)
[2019-08-16] MEDS ORDERED: FUROSEMIDE 40 MG TABLET PO SCH (09:00)
[2019-08-16] MEDS ORDERED: SPIRONOLACTONE 25 MG TABLET PO SCH (09:00)
[2019-08-16] MEDS: TRAMADOL HCL 50 MG TAB PO PRN (09:18)
[2019-08-16] MEDS: MAGNESIUM OXIDE 400 MG TAB PO SCH (09:19)
[2019-08-16] MEDS: ENOXAPARIN 40 MG/0.4 ML SQ SCH (09:19)
[2019-08-16] MEDS: SODIUM CHLORIDE 1 GM TAB PO SCH (09:22)
[2019-08-16] MEDS: SACUBITRIL/VALSARTAN 24/26 MG TAB PO SCH (09:22)
[2019-08-16] MEDS: TAMSULOSIN 0.4 MG SR CAP PO SCH (09:23)
[2019-08-16] MEDS: PANTOPRAZOLE 40MG TABLET PO SCH (09:23)
[2019-08-16] MEDS: ASPIRIN 325 MG TAB PO SCH (09:24)
[2019-08-16 11:30] LABS: Anisocytosis 1+; Blood Morphology Comment NOTED (NOT SEEN); Platelet Estimate DECR; Urine White Blood Cell Casts OK
--- NOTE | 2019-08-16 11:37 | P.DS ---
Admission Date: 08/13/19 Discharge Date: 08/16/19 Primary Care Provider: PHILIPPE Disposition: ROUTINE DISCHARGE Discharge Condition: GOOD Reason for Admission: Hyponatremia, shortness of breath Consultations: Nephrology-Dr. Bull Cardiology-Dr. Lozano Procedures: CXR: COMPARISON: Chest Single View dated 08/13/2019; Chest Single View dated 08/06/2019 FINDINGS: The lungs are clear. The heart is mildly enlarged in size with a multilead pacer/defibrillator device. Right shoulder arthroplasty noted. IMPRESSION: No acute or concerning finding suspected. ECHO: EF 25-30% LEFT VENTRICULAR WALL MOTION: SEVERE GLOBAL HYPOKINESIS. DOPPLER/COLOR FLOW: NORMal COMMENTS: SEVERE GLOBAL HYPOKINESIS. LEFT VENTRICULAR EJECTION FRACTIO 25- 30%. PACEMAKER IN RIGHT VENTRICULAR APEX. LEFT VENTRICULAR DILITATION. LEFT ATRIAL ENLARGEMENT. 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 Patient found to have hyponatremia and acute on chronic systolic CHF. Patient admitted for further evaluation and treatment. Hospital Course: Patient presented with shortness of breath secondary to hyponatremia and acute on chronic systolic CHF. The patient was admitted for further evaluation. Cardiology and nephrology were consulted. Hyponatremia secondary to psychogenic polydipsia. Echocardiogram shows ejection of about 25%. The patient was diuresed and given salt tablets. The patient has done well. Patient without chest pain or shortness of breath. Sodium now 134. Patient has done well. Case discussed with cardiology and nephrology. At discharge patient will continue with aspirin 325 mg daily, Lipitor 80 mg daily, carvedilol 6.25 mg 1 pill twice daily, Entresto 24/46 mg 1 pill twice daily, Lasix 40 mg daily, and Aldactone 25 mg daily. At discharge patient will continue with a 1500 cc per day fluid restriction. Recommend to monitor his weight daily. If his weight increases by more than 5 lb he is to contact his PCP for further recommendation. Recommend follow up with cardiology in 1-2 weeks to follow up this hospitalization. Education on CHF and hyponatremia will be provided. Recommend follow up with nephrology in 1-2 weeks to follow up this hospitalization. Recommend to recheck lab-BMP in 1 week. and low-salt diet. Patient with hypertension. Medications have been adjusted. Patient will no longer take metoprolol. This has been replaced with carvedilol. Continue as recommended above. Maintain blood pressure less than 140/90. Further adjustment can be done by his PCP or cardiology. Patient with hyperlipidemia. At discharge patient will continue with Lipitor 80 mg daily. Patient with GERD. Patient will continue with Protonix 40 mg daily. Patient with posttraumatic stress disorder. At discharge he will continue with his current medications of Seroquel 100 mg at bedtime and lorazepam 2 mg 3 times a day as needed for anxiety. Patient with low magnesium. At discharge patient will continue with magnesium supplementation. Vital Signs/Physical Exam: Temp Pulse Resp BP Pulse Ox 97.3 F 103 H 18 104/67 98 08/16/19 08:00 08/16/19 09:22 08/16/19 08:00 08/16/19 09:22 08/16/19 08:00 General: Alert, In no apparent distress, Oriented x3, Cooperative HEENT: Atraumatic Neck: Supple Respiratory: Clear to auscultation bilaterally, Normal air movement Cardiovascular: Normal pulses, Regular rate/rhythm Gastrointestinal: Normal bowel sounds, Soft and benign, Non-distended Integumentary: No tenderness/swelling, No erythema, No warmth, No cyanosis Neurological: Normal speech, Normal strength at 5/5 x4 extr, Normal tone, Normal affect Laboratory Data at Discharge: WBC 7.5 K/uL (4.3-10.9) D 08/16/19 05:50 Hgb 10.3 g/dL (13.6-17.9) L 08/16/19 05:50 Hct 31.6 % (39.6-49.0) L 08/16/19 05:50 Plt Count 138 K/uL (152-406) L 08/16/19 05:50 PT 13.0 SECONDS (9.5-12.5) H 08/13/19 10:15 INR 1.10 08/13/19 10:15 APTT 28.5 SECONDS (24.3-36.9) 08/13/19 10:15 Sodium 134 mmol/L (136-145) L 08/16/19 05:50 Potassium 4.6 mmol/L (3.5-5.1) 08/16/19 05:50 BUN 9 mg/dL (7-18) 08/16/19 05:50 Creatinine 1.00 mg/dL (0.55-1.3) 08/16/19 05:50 Glucose 104 mg/dL (74-106) 08/16/19 05:50 Magnesium 1.4 mg/dL (1.8-2.4) L* 08/16/19 05:50 Total Bilirubin 0.5 mg/dL (0.2-1.0) 08/13/19 10:15 AST 83 U/L (15-37) H 08/13/19 10:15 ALT 42 U/L (12-78) 08/13/19 10:15 Alkaline Phosphatase 110 U/L (45-117) 08/13/19 10:15 Troponin I 0.11 ng/mL (0.0-0.045) H 08/14/19 05:17 Troponin I Cancelled 08/14/19 05:17 Lipase 366 U/L (73-393) 08/13/19 10:15 Home Medications: Aspirin 325 mg PO DAILY 08/13/19 Atorvastatin Calcium [Lipitor] 80 mg PO BEDTIME 08/13/19 Dicyclomine [Bentyl*] 10 mg PO DAILY PRN 08/13/19 LORazepam [Lorazepam] 2 mg PO Q6H 08/13/19 Magnesium Oxide 2 tab PO DAILY 08/13/19 Pantoprazole [Protonix Tab*] 40 mg PO DAILY 08/13/19 Quetiapine [Seroquel*] 100 mg PO DAILY 08/13/19 Tamsulosin [Flomax*] 0.4 mg PO DAILY 08/13/19 Furosemide [Lasix*] 40 mg PO DAILY #30 tab 08/16/19 Sacubitril/Valsartan [Entresto 24 mg-26 mg Tablet] 1 tab PO BID #60 tab 08/16/19 Spironolactone [Aldactone*] 25 mg PO DAILY #30 tab 08/16/19 carvediloL [Coreg*] 6.25 mg PO BID 6AM 6PM #60 tab 08/16/19 New Medications: Spironolactone [Aldactone*] 25 mg PO DAILY #30 tab carvediloL [Coreg*] 6.25 mg PO BID 6AM 6PM #60 tab Sacubitril/Valsartan [Entresto 24 mg-26 mg Tablet] 1 tab PO BID #60 tab Furosemide [Lasix*] 40 mg PO DAILY #30 tab Patient Discharge Instructions: 1. Recommend follow up with PCP in 1 week to follow up this hospitalization. 2. Patient presented with shortness of breath secondary to hyponatremia and acute on chronic systolic CHF. The patient was admitted for further evaluation. Cardiology and nephrology were consulted. Hyponatremia secondary to psychogenic polydipsia. Echocardiogram shows ejection of about 25%. The patient was diuresed and given salt tablets. The patient has done well. Patient without chest pain or shortness of breath. Sodium now 134. Patient has done well. Case discussed with cardiology and nephrology. At discharge patient will continue with aspirin 325 mg daily, Lipitor 80 mg daily, carvedilol 6.25 mg 1 pill twice daily, Entresto 24/46 mg 1 pill twice daily, Lasix 40 mg daily, and Aldactone 25 mg daily. At discharge patient will continue with a 1500 cc per day fluid restriction. Recommend to monitor his weight daily. If his weight increases by more than 5 lb he is to contact his PCP for further recommendation. Recommend follow up with cardiology in 1-2 weeks to follow up this hospitalization. Education on CHF and hyponatremia will be provided. Recommend follow up with nephrology in 1-2 weeks to follow up this hospitalization. Recommend to recheck lab-BMP in 1 week. and low-salt diet. 3. Patient with hypertension. Medications have been adjusted. Patient will no longer take metoprolol. This has been replaced with carvedilol. Continue as recommended above. Maintain blood pressure less than 140/90. Further adjustment can be done by his PCP or cardiology. 4. Patient with hyperlipidemia. At discharge patient will continue with Lipitor 80 mg daily. 5. Patient with GERD. Patient will continue with Protonix 40 mg daily. 6. Patient with posttraumatic stress disorder. At discharge he will continue with his current medications of Seroquel 100 mg at bedtime and lorazepam 2 mg 3 times a day as needed for anxiety. 7. Patient with low magnesium. At discharge patient will continue with magnesium supplementation. Diet: [facility] Activity: Ad aaron Time spent managing pt's care (in minutes): 55
[2019-08-16 13:35] VITALS: BP 106/69; TEMP 98.3
--- NOTE | 2019-08-16 17:50 | P.PN ---
Subjective Date of Service: 08/15/19 Primary Care Provider: PHILIPPE Chief Complaint: Hyponatremia, shortness of breath Pt feeling better. Still has some myalgias Review of Systems General: Unremarkable Eyes: Unremarkable ENT: Unremarkable Respiratory: Unremarkable Cardiovascular: Unremarkable Gastrointestinal: Unremarkable Genitourinary: Unremarkable Musculoskeletal: Unremarkable Integumentary: Unremarkable Neurological: Unremarkable Physical Examination - Vital Signs Temperature: 98.3 F Blood Pressure: 106/69 Pulse: 119 Respirations: 20 Pulse Ox (%): 95 - Physical Exam HEENT: Atraumatic, PERRLA, EOMI Neck: Supple, JVD not distended Respiratory: Clear to auscultation bilaterally, Normal air movement Cardiovascular: Regular rate/rhythm, Normal S1 S2 Gastrointestinal: Normal bowel sounds, No tenderness Musculoskeletal: No tenderness Integumentary: No rashes - Studies Medications List Reviewed: Yes Assessment And Plan - Current Problems (Diagnosis) (1) Hyponatremia Status: Acute (2) Respiratory alkalosis Status: Acute (3) Metabolic acidosis Status: Acute Plan: 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 Goal sodium 131 by 10am /9. Afterwards liberalize correction Pt sodium stalled at 131. Upset about fluid restricting Since cardio wanting to start lasix back will give 2 doses of 2gm salt tabs tonight and in the AM 1.5L restriction, may go home with this restriction. Discontinue ddavp and ivf If sodium >132 tomorrow, renally clear for discharge May follow up with me or pcp within 1 week Heart failure with HTN Cardio wanting to start entresto as well as lasix Agree with medication Will continue to follow.
--- NOTE | 2019-08-19 16:40 | PN ---
Date of Progress Note: 08/15/2019 Mr. Kahn had been admitted with acute on chronic systolic congestive heart failure. Echocardiogram yesterday showed an ejection fraction of 25% to 30%. Overnight, he has been diuresed. He is feelin g better. His sodium was 131, , his creatinine was 0.90. is still pending. Ec hocardiogram showed an ejection fraction of 25% 30%. The patient is presently on Aldacton e and Lasix, which he needs to continue, but I would certainly encourage him to get started on Entres to 24/26 mg 1 p.o. b.i.d. Mr. Kahn can go home whenever it is okay with Dr. Brunson. He normally f ollows up at the [facility]. QUETA/AIDAN Voice ID: [id number] Report ID: [id number]
== END 2019-08-16 15:24 | disposition home or self-care (01) | DRG 640 ==
LOC: ER 09:31 → ERHOLD 14:03 → 2ND 08-14 02:09
PROVIDERS: ADMIT Family Medicine; ATTEND Family Medicine
DX: E87.1 Hypo-osmolality and hyponatremia (principal); I50.23 Acute on chronic systolic (congestive) heart failure; I11.0 Hypertensive heart disease with heart failure; E78.5 Hyperlipidemia, unspecified; K21.9 Gastro-esophageal reflux disease without esophagitis; Z95.810 Presence of automatic (implantable) cardiac defibrillator; Z60.2 Problems related to living alone; Z87.891 Personal history of nicotine dependence; Z79.82 Long term (current) use of aspirin; Z79.899 Other long term (current) drug therapy; I25.2 Old myocardial infarction; Z95.5 Presence of coronary angioplasty implant and graft; E87.3 Alkalosis; E87.2 Acidosis; R63.1 Polydipsia; F45.8 Other somatoform disorders; E87.70 Fluid overload, unspecified; Z20.828 Contact with and (suspected) exposure to other viral communicable diseases; R06.02 Shortness of breath; F43.10 Post-traumatic stress disorder, unspecified; E83.42 Hypomagnesemia
CPT/HCPCS: 36415; 71045; 71046; 80048; 80076; 80307; 81003; 81015; 82310; 82374; 82435; 82550; 82565; 82728; 82805; 82947; 83605; 83690; 83735; 83930; 83935; 84132; 84145; 84295; 84300; 84439; 84443; 84484; 84520; 85025; 85610; 85730; 86140; 87040; 93005; 93280; 93306; 99284; J1650; J2405; J2597; J3475; J7040